=== PATIENT | female | born 1995 | race Caucasian/White ===

== ENCOUNTER 2017-01-19 05:53 | Emergency (ER) | payer BC, MEDICAID ==
[2017-01-19 06:20] VITALS: BP 109/81
--- NOTE | 2017-01-19 06:44 | EDM.PDOC ---
ED HPI GENERAL MEDICAL PROBLEM - General Chief Complaint: General Stated Complaint: SORES IN MOUTH Time Seen by Provider: 01/19/17 06:30 Source of Information: Reports: Patient History Limitations: Reports: No Limitations - History of Present Illness INITIAL COMMENTS - FREE TEXT/NARRATIVE: 21-year-old female with a sore throat, oral sores, generalized malaise and a fever for the last 48-72 hours. Her daughter has a cold sore, she is wondering if it's related. No nausea or vomiting, no cough or shortness of breath. She feels tired and has a headache. Onset: Gradual (Over the past 3 days) Severity: Moderate Associated Symptoms: Reports: Fever/Chills, Headaches, Malaise. Denies: Cough, Nausea/Vomiting, Shortness of Breath Oral/Mouth Pain Score (Numeric/FACES): 10 - Related Data Allergies Allergy/AdvReac Type Severity Reaction Status Date / Time Sulfa (Sulfonamide Allergy Intermediate Rash Verified 01/19/17 06:09 Antibiotics) lanolin alcohols Allergy Hives Verified 01/19/17 06:09 Home Meds: Home Meds Methylphenidate HCl [Methylphenidate HCl Cd] 20 mg PO BID 01/19/17 [History] Sertraline HCl [Sertraline HCl] 50 mg PO DAILY 01/19/17 [History] Past Medical History HEENT History: Reports: Impaired Vision Gastrointestinal History: Reports: GERD, Irritable Bowel Syndrome, Pancreatitis Genitourinary History: Reports: STD Other OB/BYN History: Lmp ended 1 1/2 wk ago. heavy vaginal bleeding 7/4 and 7/ 5 after intercourse. Delivered infant 10 months ago. Musculoskeletal History: Reports: Other (See Below) Other Musculoskeletal History: chronic pain in left wrist Neurological History: Reports: Migraines Psychiatric History: Reports: ADHD, Depression Dermatologic History: Reports: Eczema Other Dermatologic History: excema - Infectious Disease History Infectious Disease History: Reports: Helicobacter Pylori - Past Surgical History HEENT Surgical History: Reports: Oral Surgery Other HEENT Surgeries/Procedures: wisdom teeth out on Jan 02, 2017 GI Surgical History: Reports: Cholecystectomy Female Surgical History: Reports: Section Social & Family History - Tobacco Use Smoking Status *Q: Current Every Day Smoker Years of Tobacco use: 4 Packs/Tins Daily: 0.2 Used Tobacco, but Quit: No Month Tobacco Last Used: 10 Second Hand Smoke Exposure: No - Caffeine Use Caffeine Use: Reports: Coffee - Alcohol Use Days Per Week of Alcohol Use: 1 Number of Drinks Per Day: 7 Total Drinks Per Week: 7 - Recreational Drug Use Recreational Drug Use: No Drug Use in Last 12 Months: Yes Recreational Drug Type: Reports: Marijuana/Hashish Recreational Drug Use Frequency: Not Used In Over 3 Months ED ROS GENERAL - Review of Systems Review Of Systems: See Below Constitutional: Reports: Fever, Chills, Malaise HEENT: Reports: Ear Pain (Left ear is hurting), Throat Pain Respiratory: Denies: Shortness of Breath GI/Abdominal: Denies: Abdominal Pain, Nausea, Vomiting Skin: Denies: Bruising Neurological: Reports: Headache Psychiatric: Reports: No Symptoms ED EXAM, GENERAL - Physical Exam Exam: See Below Exam Limited By: No Limitations General Appearance: Alert, No Apparent Distress (Patient looks uncomfortable but is not distressed) Eye Exam: Bilateral Eye: Normal Inspection Ears: Normal TMs (Both tympanic membranes are completely normal) Throat/Mouth: Other (Patient does have some diffuse inflammatory changes of the gums, especially maxillary. There is also a few shallow aphthous ulcers on the mucosa. Posterior pharynx is erythematous.) Respiratory/Chest: No Respiratory Distress, Lungs Clear Neurological: Alert, Oriented Skin Exam: Warm, Dry Course - Vital Signs Last Recorded V/S: Last Vital Signs Temp 101.1 F H 01/19/17 06:19 Pulse 115 H 01/19/17 06:19 Resp 18 01/19/17 06:19 BP 109/81 01/19/17 06:19 Pulse Ox 97 01/19/17 06:19 - Orders/Labs/Meds Orders: Active Orders 24 hr Category Date Time Status CULTURE STREP A CONFIRMATION [RM] Routine Lab 01/19/17 06:27 Results STREP SCRN A RAPID W CULT CONF [RM] Routine Lab 01/19/17 06:27 Results Meds: Medications Discontinued Medications Generic Name Dose Route Start Last Admin Trade Name Freq PRN Reason Stop Dose Admin Lidocaine HCl 20 ml 01/19/17 06:56 01/19/17 07:18 Xylocaine 2% Viscous PO 01/19/17 06:57 Not Given ONETIME ONE Lidocaine HCl 15 ml 01/19/17 07:15 01/19/17 07:20 Xylocaine 2% Viscous PO 01/19/17 07:16 15 ml ONETIME ONE Administration Methylprednisolone Sodium Succinate 125 mg 01/19/17 06:56 01/19/17 07:07 Solu-Medrol IM 01/19/17 06:57 125 mg ONETIME ONE Administration - Re-Assessments/Exams Free Text/Narrative Re-Assessment/Exam: 01/19/17 06:44 A rapid strep was obtained. 01/19/17 06:52 Rapid strep was negative. This patient has a viral stomatitis. She is looking for some relief so be given 125 mg of IM Solu-Medrol, and some viscous lidocaine for symptoms. Recheck in 48 hours if not improving. She'll also be placed on Famvir 500 mg 3 times a day for 5 days Departure - Departure Time of Disposition: 07:26 Disposition: Home, Self-Care 01 Condition: Good Clinical Impression: Viral stomatitis - Discharge Information Instructions: Stomatitis, [id number] Referrals: Frederick Ventura MD [Primary Care Provider] - Forms: ED Department Discharge Care Plan Goals: Use numbing medicine before eating, and a regular dose of ibuprofen or naproxen should help. Rest and fluids and next 2-3 days and recheck if not improving satisfactorily. Return to the emergency room at any time if worsening or concerns. Antiviral medicine 3 times a day for 5 days as prescribed. - My Orders Last 24 Hours: My Active Orders 01/19/17 06:27 CULTURE STREP A CONFIRMATION [RM] Routine STREP SCRN A RAPID W CULT CONF [] Routine - Assessment/Plan Last 24 Hours: My Active Orders 01/19/17 06:27 CULTURE STREP A CONFIRMATION [RM] Routine STREP SCRN A RAPID W CULT CONF [] Routine
[2017-01-19] MEDS ORDERED: methylPREDNISolone Sodium Succinate 125 MG/2 ML SDV IM ONE (06:56)
[2017-01-19] MEDS ORDERED: Lidocaine 2% Viscous Solution 100 ML Bottle PO ONE (06:56)
[2017-01-19] MEDS ORDERED: Lidocaine 2% Viscous Solution 15 ML Cup PO ONE (07:15)
== END 2017-01-19 07:26 | disposition home or self-care (01) ==
LOC: JP.ED 05:53
DX: K12.1 Other forms of stomatitis (principal)
CPT/HCPCS: 87081; 87430; 96374; 99283; A9270; J2930

== ENCOUNTER 2017-02-26 21:32 | Emergency (ER) | payer BC, MEDICAID ==
[2017-02-26 21:51] VITALS: BP 132/87
[2017-02-26] MEDS ORDERED: Ketorolac 60 MG/2 ML SDV IM ONE (22:30)
--- NOTE | 2017-02-26 23:14 | EDM.PDOC ---
ED HPI GENERAL MEDICAL PROBLEM - General Chief Complaint: Lower Extremity Injury/Pain Stated Complaint: L FOOT INJURY Time Seen by Provider: 02/26/17 22:17 Source of Information: Reports: Patient, Family (friend) History Limitations: Reports: No Limitations - History of Present Illness INITIAL COMMENTS - FREE TEXT/NARRATIVE: left foot pain; this is a 21 year old female , presents to ER with her friend, reports at home drinking alcohol beverage, when she went down the stairs and tripped over a shoe She had immediate pain, heard a cracking sound. unable to walk on the foot without severe pain. Onset: Sudden Onset Date: 02/26/17 Onset Time: 20:30 Duration: Constant Location: Reports: Lower Extremity, Left Quality: Reports: Sharp, Throbbing Severity: Moderate Improves with: Reports: Immobilization Worsens with: Reports: Movement Context: Reports: Other (fall at home tripped over a shoe) Associated Symptoms: Reports: No Other Symptoms left foot Pain Score (Numeric/FACES): 10 - Related Data Allergies Allergy/AdvReac Type Severity Reaction Status Date / Time Sulfa (Sulfonamide Allergy Intermediate Rash Verified 02/26/17 21:53 Antibiotics) lanolin alcohols Allergy Hives Verified 02/26/17 21:53 Home Meds: Home Meds Methylphenidate HCl [Methylphenidate HCl Cd] 20 mg PO BID 01/19/17 [History] Sertraline HCl [Sertraline HCl] 50 mg PO DAILY 01/19/17 [History] Past Medical History HEENT History: Reports: Impaired Vision Gastrointestinal History: Reports: GERD, Irritable Bowel Syndrome, Pancreatitis Genitourinary History: Reports: STD Other OB/BYN History: Lmp ended 1 1/2 wk ago. heavy vaginal bleeding 7/4 and 7/ 5 after intercourse. Delivered infant 10 months ago. Musculoskeletal History: Reports: Other (See Below) Other Musculoskeletal History: chronic pain in left wrist Neurological History: Reports: Migraines Psychiatric History: Reports: ADHD, Depression Dermatologic History: Reports: Eczema Other Dermatologic History: excema - Infectious Disease History Infectious Disease History: Reports: Helicobacter Pylori - Past Surgical History HEENT Surgical History: Reports: Oral Surgery Other HEENT Surgeries/Procedures: wisdom teeth out on Jan 02, 2017 GI Surgical History: Reports: Cholecystectomy Female Surgical History: Reports: Section Social & Family History - Tobacco Use Smoking Status *Q: Current Every Day Smoker Years of Tobacco use: 5 Packs/Tins Daily: 0.5 Used Tobacco, but Quit: No Month Tobacco Last Used: 10 Second Hand Smoke Exposure: No - Caffeine Use Caffeine Use: Reports: Coffee, Energy Drinks - Alcohol Use Days Per Week of Alcohol Use: 1 Number of Drinks Per Day: 4 Total Drinks Per Week: 4 - Recreational Drug Use Recreational Drug Use: No Drug Use in Last 12 Months: Yes Recreational Drug Type: Reports: Marijuana/Hashish Recreational Drug Use Frequency: Not Used In Over 3 Months Review of Systems - Review of Systems Review Of Systems: See Below Constitutional: Reports: No Symptoms Eyes: Reports: No Symptoms Ears: Reports: No Symptoms Nose: Reports: No Symptoms Mouth/Throat: Reports: No Symptoms Respiratory: Reports: No Symptoms Cardiovascular: Reports: No Symptoms Genitourinary: Reports: No Symptoms Musculoskeletal: Reports: Foot Pain, Joint Pain (left foot and ankle pain) Skin: Reports: Bruising Neurological: Reports: No Symptoms Psychiatric: Reports: No Symptoms ED EXAM, GENERAL - Physical Exam Exam: See Below Exam Limited By: Intoxication General Appearance: Alert, WD/WN, Mild Distress Nose: Normal Inspection Throat/Mouth: Perioral Cyanosis Head: Atraumatic Neck: Supple Respiratory/Chest: No Respiratory Distress Peripheral Pulses: 2+: Posterior Tibial (L), Posterior Tibial (R), Dorsalis Pedis (L), Dorsalis Pedis (R) Extremities: Joint Swelling (left lateral malleous, and left lateral foot) Neurological: Alert, Oriented, Normal Cognition Psychiatric: Tearful Skin Exam: Warm, Dry, Intact Lymphatic: No Adenopathy Course - Vital Signs Last Recorded V/S: Last Vital Signs Temp 36.6 C 02/26/17 21:59 Pulse 124 H 02/26/17 21:59 Resp 16 02/26/17 21:59 BP 132/87 02/26/17 21:59 Pulse Ox 98 02/26/17 21:59 - Orders/Labs/Meds Orders: Active Orders 24 hr Category Date Time Status Ankle Min 3V Lt [CR] Stat Exams 02/26/17 22:29 Taken Foot Comp Min 3V Lt [CR] Stat Exams 02/26/17 22:29 Taken DME for Discharge [COMM] Urgent Oth 02/26/17 23:03 Ordered Meds: Medications Discontinued Medications Generic Name Dose Route Start Last Admin Trade Name Freq PRN Reason Stop Dose Admin Ketorolac Tromethamine 60 mg 02/26/17 22:30 02/26/17 22:44 Toradol IM 02/26/17 22:31 60 mg ONETIME ONE Administration - Radiology Interpretation Free Text/Narrative:: xrays of left foot and ankle; wet read, closed fracture of left 5th proximal metatarsal Departure - Departure Time of Disposition: 23:23 Disposition: Home, Self-Care 01 Condition: Good Clinical Impression: Closed fracture of foot - Discharge Information Instructions: Metatarsal Fracture Referrals: Frederick Ventura MD [Primary Care Provider] - Forms: ED Department Discharge Care Plan Goals: left 5th proximal head fracture of metatarsal -non wt bearing -crutches -referral to Orthopedics for further care and treatment apply ice intermittently for the next 2 days wear splint no work til evaluation by Orthopedic pain control -Percocet 5-325mg take one every 4 to 6 hours as needed for pain; do not mix with alcohol -Motrin 600mg , take one every 6 yo 8 hours as needed -Tylenol 325mg; take two tablets every 4 to 6 hours for pain return to clinic, urgent care or er if not improved or symptoms worsen - Problem List & Annotations (1) Fracture of metatarsal bone of left foot SNOMED Code(s): 615648362 Code(s): S92.302A - FRACTURE OF UNSP METATARSAL BONE(S), LEFT FOOT, INIT Status: Acute Current Visit: Yes Qualifiers: Encounter type: initial encounter Metatarsal bone: fifth Fracture type: closed Fracture alignment: nondisplaced Qualified Code(s): S92.355A - Nondisplaced fracture of fifth metatarsal bone, left foot, initial encounter for closed fracture (2) Closed fracture of foot SNOMED Code(s): 944255481 Code(s): S92.909A - UNSP FRACTURE OF UNSP FOOT, INIT ENCNTR FOR CLOSED FRACTURE Status: Acute Priority: High Current Visit: Yes - Problem List Review Problem List Initiated/Reviewed/Updated: Yes - My Orders Last 24 Hours: My Active Orders 02/26/17 22:29 Ankle Min 3V Lt [CR] Stat Foot Comp Min 3V Lt [CR] Stat 02/26/17 23:03 DME for Discharge [COMM] Urgent - Assessment/Plan Last 24 Hours: My Active Orders 02/26/17 22:29 Ankle Min 3V Lt [CR] Stat Foot Comp Min 3V Lt [CR] Stat 02/26/17 23:03 DME for Discharge [COMM] Urgent Plan: left 5th proximal head fracture of metatarsal -non wt bearing -crutches -referral to Orthopedics for further care and treatment apply ice intermittently for the next 2 days wear splint no work til evaluation by Orthopedic pain control -Percocet 5-325mg take one every 4 to 6 hours as needed for pain; do not mix with alcohol -Motrin 600mg , take one every 6 yo 8 hours as needed -Tylenol 325mg; take two tablets every 4 to 6 hours for pain return to clinic, urgent care or er if not improved or symptoms worsen
--- NOTE | 2017-02-27 11:03 | CR ---
Foot Comp Min 3V Lt HISTORY: Fall COMPARISON: None FINDINGS: Transverse fracture through the base of the fifth metatarsal with no significant displaceme nt. No other fractures seen.
--- NOTE | 2017-02-27 11:03 | CR ---
Ankle Min 3V Lt HISTORY: Fall COMPARISON: None FINDINGS: Transverse fracture to the base of the fifth metatarsal. No significant displacement. No ot her fractures seen.
== END 2017-02-26 23:24 | disposition home or self-care (01) ==
LOC: JP.ED 21:32
DX: S92.352A Displaced fracture of fifth metatarsal bone, left foot, initial encounter for closed fracture (principal); F17.210 Nicotine dependence, cigarettes, uncomplicated; K21.9 Gastro-esophageal reflux disease without esophagitis; F32.9 Major depressive disorder, single episode, unspecified; Z79.899 Other long term (current) drug therapy; Z88.2 Allergy status to sulfonamides; Z88.8 Allergy status to other drugs, medicaments and biological substances; W10.8XXA Fall (on) (from) other stairs and steps, initial encounter; Y92.009 Unspecified place in unspecified non-institutional (private) residence as the place of occurrence of the external cause
CPT/HCPCS: 73610; 73630; 96372; 99284; J1885

== ENCOUNTER 2017-09-02 08:10 | Emergency (ER) | payer BC, MEDICAID ==
--- NOTE | 2017-09-02 08:43 | EDM.PDOC ---
ED HPI GENERAL MEDICAL PROBLEM - General Chief Complaint: Lower Extremity Injury/Pain Stated Complaint: HAD FOOT SURGERY/IN PAIN Time Seen by Provider: 09/02/17 08:30 Source of Information: Reports: Patient, RN History Limitations: Reports: No Limitations - History of Present Illness INITIAL COMMENTS - FREE TEXT/NARRATIVE: 22 yo female had surgery yesterday by a local die repairer trimmer dies. Presents now due to pain, feels the cast is too tight in her heel area. She did not try to reach the die repairer trimmer dies, but rather just came to the ER. Onset: Today Onset Date: 09/02/17 Duration: Hour(s):, Constant Location: Reports: Lower Extremity, Left Quality: Reports: Pressure Severity: Moderate Improves with: Reports: None Worsens with: Reports: None Associated Symptoms: Reports: No Other Symptoms Treatments DECORATOR CONSULTANT: Reports: Other (see below) (prescribed pain medication) Left Feet Pain Score (Numeric/FACES): 9 - Related Data Allergies Allergy/AdvReac Type Severity Reaction Status Date / Time Sulfa (Sulfonamide Allergy Intermediate Rash Verified 09/02/17 08:26 Antibiotics) lanolin alcohols Allergy Hives Verified 09/02/17 08:26 Home Meds: Home Meds Methylphenidate HCl [Methylphenidate HCl Cd] 20 mg PO BID 01/19/17 [History] Sertraline HCl 50 mg PO DAILY 01/19/17 [History] medroxyPROGESTERone [Depo-Provera] 150 mg .XX DAILY 08/28/17 [History] Acetaminophen/HYDROcodone [[place] 325-5 MG] 1 - 2 tab PO Q6H PRN 09/02/17 [ History] Past Medical History HEENT History: Reports: Impaired Vision Cardiovascular History: Reports: None Respiratory History: Reports: None Gastrointestinal History: Reports: GERD, Irritable Bowel Syndrome, Pancreatitis Genitourinary History: Reports: STD Other [employer] History: Lmp ended 1 1/2 wk ago. heavy vaginal bleeding 08/20 and 08/21 after intercourse. Delivered 10 months ago. Musculoskeletal History: Reports: Fracture, Other (See Below) Other Musculoskeletal History: chronic pain in left wrist. left foot FX Neurological History: Reports: Migraines Psychiatric History: Reports: ADHD, Depression Endocrine/Metabolic History: Reports: None Hematologic History: Reports: None Immunologic History: Reports: None Oncologic (Cancer) History: Reports: None Dermatologic History: Reports: Eczema Other Dermatologic History: excema - Infectious Disease History Infectious Disease History: Reports: None - Past Surgical History Head Surgeries/Procedures: Reports: None HEENT Surgical History: Reports: Oral Surgery Other HEENT Surgeries/Procedures: wisdom teeth out on Jan 02, 2017 Cardiovascular Surgical History: Reports: None GI Surgical History: Reports: Cholecystectomy Female Surgical History: Reports: Section Neurological Surgical History: Reports: None Social & Family History - Family History Family Medical History: Noncontributory - Tobacco Use Smoking Status *Q: Current Every Day Smoker Years of Tobacco use: 4 Packs/Tins Daily: 0.3 - Caffeine Use Caffeine Use: Reports: Coffee, Energy Drinks, Soda, Tea - Recreational Drug Use Recreational Drug Use: No Review of Systems - Review of Systems Review Of Systems: See Below Constitutional: Reports: No Symptoms Musculoskeletal: Reports: Foot Pain (Left) Skin: Reports: No Symptoms Neurological: Reports: No Symptoms ED EXAM, GENERAL - Physical Exam Exam: See Below Exam Limited By: Other (Cast covering much of the left foot/ankle/lower leg.) General Appearance: Alert, WD/WN, No Apparent Distress Extremities: Normal Inspection, Other (short leg cast in place, cap refill to the toes appears intact. No obvious swelling of toes. ) Neurological: Alert, Oriented, CN II-XII Intact, Normal Cognition, No Motor/ Sensory Deficits Psychiatric: Normal Affect, Normal Mood Skin Exam: Warm, Dry, Intact, Normal Color, No Rash Course - Vital Signs Text/Narrative:: Discussed case with Dr. Teague's coverage(he is on vacation). ATUL wraps loosened and some additional padding placed around splint with reported relief by patient. Last Recorded V/S: Last Vital Signs Temp 36.8 C 09/02/17 08:24 Pulse 66 09/02/17 09:18 Resp 16 09/02/17 09:18 BP 103/66 09/02/17 09:18 Pulse Ox 98 09/02/17 09:18 - Orders/Labs/Meds Meds: Medications Discontinued Medications Generic Name Dose Route Start Last Admin Trade Name Freq PRN Reason Stop Dose Admin Hydromorphone HCl 1 mg 09/02/17 08:46 09/02/17 08:53 Dilaudid IM 09/02/17 08:47 1 mg ONETIME ONE Administration Departure - Departure Time of Disposition: 09:50 Disposition: Home, Self-Care 01 Condition: Good Clinical Impression: Ankle pain, left Qualifiers: Chronicity: unspecified Qualified Code(s): M25.572 - Pain in left ankle and joints of left foot - Discharge Information Referrals: Frederick Ventura MD [Primary Care Provider] - Forms: ED Department Discharge
[2017-09-02] MEDS ORDERED: HYDROmorphone 1 MG/ML Syringe IM ONE (08:46)
[2017-09-02 09:36] VITALS: BP 103/66
== END 2017-09-02 10:00 | disposition home or self-care (01) ==
LOC: JP.ED 08:10
DX: M25.572 Pain in left ankle and joints of left foot (principal); K21.9 Gastro-esophageal reflux disease without esophagitis; F17.210 Nicotine dependence, cigarettes, uncomplicated; F32.9 Major depressive disorder, single episode, unspecified; Z98.890 Other specified postprocedural states; Z79.899 Other long term (current) drug therapy; Z88.2 Allergy status to sulfonamides; Z88.8 Allergy status to other drugs, medicaments and biological substances
CPT/HCPCS: 96372; 99283; J1170

== ENCOUNTER 2019-12-09 18:18 | Inpatient (IN) | payer BC, MEDICAID, OTHER ==
[2019-12-09] MEDS ORDERED: HYDROmorphone 1 MG/ML Syringe IVPUSH ONE ×2 (19:08→20:09)
[2019-12-09] MEDS ORDERED: Ondansetron 4 MG/2 ML SDV IVPUSH ONE (19:09)
[2019-12-09] MEDS ORDERED: Lactated Ringers 1,000 ML IV SCH (19:15)
--- NOTE | 2019-12-09 19:15 | EDM.PDOC ---
ED HPI GENERAL MEDICAL PROBLEM - General Chief Complaint: Abdominal Pain Stated Complaint: MEDICAL Time Seen by Provider: 12/09/19 19:05 Source of Information: Reports: Patient, Old Records, RN History Limitations: Reports: No Limitations - History of Present Illness INITIAL COMMENTS - FREE TEXT/NARRATIVE: 24 yo female presents with upper abdominal pain. She has this on and off for years. Today's episode is more severe than usual. Says she has been to the clinic for it and was told it was her anxiety. Had pancreatitis at age 13 due a problem with her gallbladder that resulted in her getting a cholecystectomy, this pain feels like that. She has not had nausea, vomiting, diarrhea or fever. She has not noted a pattern as to what brings on her pain, she did have several alcoholic drinks today. Onset: Today, Sudden Onset Date: 12/09/19 Duration: Hour(s):, Constant Location: Reports: Abdomen (upper) Quality: Reports: Ache Severity: Severe Improves with: Reports: Other (leaning forward as far as she can. 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) - Related Data Allergies Allergy/AdvReac Type Severity Reaction Status Date / Time Sulfa (Sulfonamide Allergy Intermediate Rash Verified 09/02/17 08:26 Antibiotics) lanolin alcohols Allergy Hives Verified 09/02/17 08:26 Home Meds: Home Meds Methylphenidate HCl [Methylphenidate HCl Cd] 20 mg PO BID 01/19/17 [History] Sertraline HCl 50 mg PO DAILY 01/19/17 [History] medroxyPROGESTERone [Depo-Provera] 150 mg .XX DAILY 08/28/17 [History] Past Medical History HEENT History: Reports: Impaired Vision Cardiovascular History: Reports: None Respiratory History: Reports: None Gastrointestinal History: Reports: GERD, Irritable Bowel Syndrome, Pancreatitis Genitourinary History: Reports: STD 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 left foot FX Neurological History: Reports: Migraines Psychiatric History: Reports: ADHD, Anxiety, Depression Endocrine/Metabolic History: Reports: None Hematologic History: Reports: None Immunologic History: Reports: None Oncologic (Cancer) History: Reports: None Dermatologic History: Reports: Eczema Other Dermatologic History: excema - Infectious Disease History Infectious Disease History: Reports: None - Past Surgical History Head Surgeries/Procedures: Reports: None HEENT Surgical History: Reports: Oral Surgery Other HEENT Surgeries/Procedures: wisdom teeth out on Jan 02, 2017 Cardiovascular Surgical History: Reports: None GI Surgical History: Reports: Cholecystectomy, Colonoscopy Female Surgical History: Reports: Section Neurological Surgical History: Reports: None Social & Family History - Family History Family Medical History: Noncontributory - Tobacco Use Tobacco Use Status *Q: Current Every Day Tobacco User Years of Tobacco use: 10 Packs/Tins Daily: 0.5 - Caffeine Use Caffeine Use: Reports: Coffee, Energy Drinks - Alcohol Use Days Per Week of Alcohol Use: 3 Number of Drinks Per Day: 5 Total Drinks Per Week: 15 Date of Last Drink: 12/09/19 Time of Last Drink: 18:00 - Recreational Drug Use Recreational Drug Use: No ED ROS GENERAL - Review of Systems Review Of Systems: See Below Constitutional: Reports: No Symptoms HEENT: Reports: No Symptoms Respiratory: Reports: No Symptoms Cardiovascular: Reports: No Symptoms Endocrine: Reports: No Symptoms GI/Abdominal: Reports: Abdominal Pain, Nausea (very slight now). Denies: Black Stool, Bloody Stool, Constipation, Diarrhea, Distension, Hematemesis, Hematochezia, Melena, Vomiting : Reports: No Symptoms Musculoskeletal: Reports: No Symptoms Skin: Reports: No Symptoms Neurological: Reports: No Symptoms ED EXAM, GI/ABD - Physical Exam Exam: See Below Exam Limited By: No Limitations General Appearance: Alert, WD/WN, Mild Distress Eyes: Bilateral: Normal Appearance Ears: Normal External Exam, Normal Canal, Hearing Grossly Normal Nose: Normal Inspection, No Blood Throat/Mouth: Normal Inspection, Normal Lips, Normal Oropharynx, Normal Voice, No Airway Compromise Head: Atraumatic, Normocephalic Neck: Normal Inspection Respiratory/Chest: No Respiratory Distress, Lungs Clear, Normal Breath Sounds, No Accessory Muscle Use Cardiovascular: Regular Rate, Rhythm, No Edema GI/Abdominal Exam: Soft, No Distention, Tender (mostly in the epigastrium), Abnormal Bowel Sounds (decreased). No: Non-Tender, Distended, Guarding, Rigid, Rebound Back Exam: Normal Inspection. No: CVA Tenderness (R), CVA Tenderness (L) Extremities: Normal Inspection, Normal Range of Motion, Non-Tender, No Pedal Edema. No: Pedal Edema Neurological: Alert, Oriented, CN II-XII Intact, Normal Cognition, No Motor/Sensory Deficits Psychiatric: Normal Affect, Normal Mood Skin Exam: Warm, Dry, Intact, Normal Color, No Rash Course - Vital Signs Text/Narrative:: Dr. Sosa called @ Last Recorded V/S: Last Vital Signs Temp 35.7 C L 12/09/19 18:31 Pulse 119 H 12/09/19 18:31 Resp 18 12/09/19 18:31 BP 142/90 H 12/09/19 18:31 Pulse Ox 98 12/09/19 18:31 - Orders/Labs/Meds Orders: Active Orders 24 hr Category Date Time Status Iopamidol [Isovue-300 (61%)] Med 12/09/19 20:15 Active 100 ml IV . DIRECTED Lactated Ringers [Ringers, Lactated] 1,000 ml Med 12/09/19 19:15 Active IV ASDIRECTED Sodium Chloride 0.9% [Normal Saline] 80 ml Med 12/09/19 20:15 Active IV ASDIRECTED Sodium Chloride 0.9% [Saline Flush] Med 12/09/19 20:14 Active 10 ml FLUSH ASDIRECTED PRN Medication Orders Lactated Ringer's (Ringers, Lactated) 1,000 mls @ 500 mls/hr IV ASDIRECTED [facility] Last Admin: 12/09/19 19:27 Dose: 500 mls/hr Documented by: MICHAEL Sodium Chloride (Normal Saline) 80 mls @ 3 mls/sec IV ASDIRECTED [facility] Last Admin: 12/09/19 20:26 Dose: 3 mls/sec Documented by: LINDSEY Iopamidol (Isovue-300 (61%)) 100 ml IV . DIRECTED [facility] Last Admin: 12/09/19 20:26 Dose: 100 ml Documented by: LINDSEY Sodium Chloride (Saline Flush) 10 ml FLUSH ASDIRECTED PRN PRN Reason: Keep Vein Open Last Admin: 12/09/19 20:26 Dose: 10 ml Documented by: LINDSEY Labs: Laboratory Tests 1012/09/19 12/09/19 Range/Units 19:23 19:23 20:15 WBC 8.8 (4.5-11.0) K/uL RBC 4.66 (3.30-5.50) M/uL Hgb 14.9 (12.0-15.0) g/dL Hct 43.6 (36.0-48.0) % MCV 94 (80-98) fL MCH 32 H (27-31) pg MCHC 34 (32-36) % Plt Count 397 (150-400) K/uL Sodium 136 L (140-148) mmol/L Potassium 3.7 (3.6-5.2) mmol/L Chloride 100 (100-108) mmol/L Carbon Dioxide 23 (21-32) mmol/L Anion Gap 16.7 H (5.0-14.0) mmol/L BUN 7 (7-18) mg/dL Creatinine 0.8 (0.6-1.0) mg/dL Est Cr Clr Drug Dosing 96.73 mL/min Estimated GFR (MDRD) > 60 (>60) Glucose 88 (74-106) mg/dL Calcium 8.8 (8.5-10.1) mg/dL Total Bilirubin 0.3 (0.2-1.0) mg/dL AST 153 H D (15-37) U/L ALT 90 H (12-78) U/L Alkaline Phosphatase 80 (46-116) U/L Total Protein 7.6 (6.4-8.2) g/dL Albumin 4.2 (3.4-5.0) g/dL Globulin 3.4 (2.3-3.5) g/dL Albumin/Globulin Ratio 1.2 (1.2-2.2) Lipase 890 H (73-393) U/L Urine Color Yellow (YELLOW) Urine Appearance Clear (CLEAR) Urine pH 6.5 (5.0-8.0) Ur Specific Peck 1.010 (1.008-1.030) Urine Protein Negative (NEGATIVE) mg/dL Urine Glucose (UA) Negative (NEGATIVE) mg/dL Urine Ketones Negative (NEGATIVE) mg/dL Urine Occult Blood Negative (NEGATIVE) Urine Nitrite Negative (NEGATIVE) Urine Bilirubin Negative (NEGATIVE) Urine Urobilinogen 0.2 (0.2-1.0) EU/dL Ur Leukocyte Esterase Negative (NEGATIVE) Urine RBC Not seen (0-5) Urine WBC Not seen (0-5) Ur Epithelial Cells Not seen Urine Bacteria Not seen Urine HCG, Qual 12/09/19 Range/Units 20:15 WBC (4.5-11.0) K/uL RBC (3.30-5.50) M/uL Hgb (12.0-15.0) g/dL Hct (36.0-48.0) % MCV (80-98) fL MCH (27-31) pg MCHC (32-36) % Plt Count (150-400) K/uL Sodium (140-148) mmol/L Potassium (3.6-5.2) mmol/L Chloride (100-108) mmol/L Carbon Dioxide (21-32) mmol/L Anion Gap (5.0-14.0) mmol/L BUN (7-18) mg/dL Creatinine (0.6-1.0) mg/dL Est Cr Clr Drug Dosing mL/min Estimated GFR (MDRD) (>60) Glucose (74-106) mg/dL Calcium (8.5-10.1) mg/dL Total Bilirubin (0.2-1.0) mg/dL AST (15-37) U/L ALT (12-78) U/L Alkaline Phosphatase (46-116) U/L Total Protein (6.4-8.2) g/dL Albumin (3.4-5.0) g/dL Globulin (2.3-3.5) g/dL Albumin/Globulin Ratio (1.2-2.2) Lipase (73-393) U/L Urine Color (YELLOW) Urine Appearance (CLEAR) Urine pH (5.0-8.0) Ur Specific Peck (1.008-1.030) Urine Protein (NEGATIVE) mg/dL Urine Glucose (UA) (NEGATIVE) mg/dL Urine Ketones (NEGATIVE) mg/dL Urine Occult Blood (NEGATIVE) Urine Nitrite (NEGATIVE) Urine Bilirubin (NEGATIVE) Urine Urobilinogen (0.2-1.0) EU/dL Ur Leukocyte Esterase (NEGATIVE) Urine RBC (0-5) Urine WBC (0-5) Ur Epithelial Cells Urine Bacteria Urine HCG, Qual Negative Meds: Medications Generic Name Dose Route Start Last Admin Trade Name Freq PRN Reason Stop Dose Admin Lactated Ringer's 1,000 mls @ 500 mls/hr 12/09/19 19:15 12/09/19 19:27 Ringers, Lactated IV 500 mls/hr ASDIRECTED [facility] Administration Sodium Chloride 80 mls @ 3 mls/sec 12/09/19 20:15 12/09/19 20:26 Normal Saline IV 3 mls/sec ASDIRECTED [facility] Administration Iopamidol 100 ml 12/09/19 20:15 12/09/19 20:26 Isovue-300 (61%) IV 100 ml . DIRECTED [facility] Administration Sodium Chloride 10 ml 12/09/19 20:14 12/09/19 20:26 Saline Flush FLUSH 10 ml ASDIRECTED PRN Administration Keep Vein Open Discontinued Medications Generic Name Dose Route Start Last Admin Trade Name Freq PRN Reason Stop Dose Admin Hydromorphone HCl 1 mg 12/09/19 19:08 12/09/19 19:28 Dilaudid IVPUSH 12/09/19 19:09 1 mg ONETIME ONE Administration Hydromorphone HCl 1 mg 12/09/19 20:09 12/09/19 20:15 Dilaudid IVPUSH 12/09/19 20:10 1 mg ONETIME ONE Administration Ondansetron HCl 4 mg 12/09/19 19:09 12/09/19 19:27 Zofran IVPUSH 12/09/19 19:10 4 mg ONETIME ONE Administration - Radiology Interpretation Free Text/Narrative:: CT abd/pelvis with IV contrast-neg CT Results Date: 12/09/19 CT Results Time: 20:58 Departure - Departure Time of Disposition: 21:15 Disposition: Admitted As Inpatient 65 Condition: Fair Clinical Impression: Elevated LFTs Acute pancreatitis Qualifiers: Pancreatitis type: unspecified pancreatitis type Acute pancreatitis complication: no infection or necrosis Qualified Code(s): K85.90 - Acute pancreatitis without necrosis or infection, unspecified - Discharge Information *PRESCRIPTION DRUG MONITORING PROGRAM REVIEWED*: No *COPY OF PRESCRIPTION DRUG MONITORING REPORT IN PATIENT MITCHELL: No Referrals: PCP,None [Primary Care Provider] - Forms: ED Department Discharge Sepsis Event Note (ED) - Evaluation Sepsis Screening Result: No Definite Risk - Focused Exam Vital Signs: Vital Signs Temp Pulse Resp BP Pulse Ox 12/09/19 18:31 35.7 C L 119 H 18 142/90 H 98 - My Orders Last 24 Hours: My Active Orders 12/09/19 19:15 Lactated Ringers [Ringers, Lactated] 1,000 ml IV ASDIRECTED 12/09/19 20:14 Sodium Chloride 0.9% [Saline Flush] 10 ml FLUSH ASDIRECTED PRN 12/09/19 20:15 Iopamidol [Isovue-300 (61%)] 100 ml IV . DIRECTED Sodium Chloride 0.9% [Normal Saline] 80 ml IV ASDIRECTED - Assessment/Plan Last 24 Hours: My Active Orders 12/09/19 19:15 Lactated Ringers [Ringers, Lactated] 1,000 ml IV ASDIRECTED 12/09/19 20:14 Sodium Chloride 0.9% [Saline Flush] 10 ml FLUSH ASDIRECTED PRN 12/09/19 20:15 Iopamidol [Isovue-300 (61%)] 100 ml IV . DIRECTED Sodium Chloride 0.9% [Normal Saline] 80 ml IV ASDIRECTED
[2019-12-09] MEDS ORDERED: Sodium Chloride 0.9% 10 ML Syringe FLUSH PRN (20:14)
[2019-12-09] MEDS ORDERED: Iopamidol 612 MG/ML 100 ML Bottle IV SCH (20:15)
[2019-12-09] MEDS ORDERED: Sodium Chloride 0.9% 80 ML IV SCH (20:15)
--- NOTE | 2019-12-09 20:55 | CRLCT ---
INDICATION: Epigastric pain, elevated lipase TECHNIQUE: CT Abdomen and pelvis with i.v. contrast. Coronal and sagittal reformats were obtained. CONTRAST: 100 mL Isovue 300 COMPARISON: None FINDINGS: Lower chest: Unremarkable. Liver: Unremarkable. Spleen: Unremarkable. Pancreas: Unremarkable. Gallbladder: Previous cholecystectomy noted with mild intra and extrahepatic biliary ductal dilatation seen. Kidney: Unremarkable. No kidney or ureteral stones or obstruction seen. Adrenal: Unremarkable. Bowel: Unremarkable. The appendix is normal in appearance and size. Vascular: Unremarkable. Lymph: Unremarkable. Peritoneum: Unremarkable. No pneumoperitoneum is seen. No significant ascites is noted. Pelvis: Unremarkable. Soft tissue: Unremarkable. Bone: Unremarkable for age. IMPRESSION: 1. Unremarkable with no CT correlate for the patient`s symptoms seen. Pancreas is unremarkable appearance by CT. Dictated by Harvinder Rodriguez MD @ 12/09/2019 8:54:27 PM Please note that all CT scans at this facility use dose modulation, iterative reconstruction, and/or weight-based dosing when appropriate to reduce radiation dose to as low as reasonably achievable. Dictated by: Harvinder Rodriguez MD @ 12/09/2019 20:54:30 (Electronically Signed)
[2019-12-09] MEDS: Sodium Chloride 0.9% 1,000 ML IV SCH (22:46)
[2019-12-09] MEDS: HYDROmorphone 1 MG/ML Syringe IVPUSH PRN (22:47)
--- NOTE | 2019-12-10 | HP ---
CHIEF COMPLAINT: Abdominal pain. HISTORY OF PRESENT ILLNESS: A 24-year-old who has had a history of pancreatitis when she was 13. She was drinking at that time, but it turned out to also be involving her gallbladder that was taken out about a year later. She had sudden onset of upper abdominal pain with radiation to her back with some slight nausea without vomiting, started about 3 hours prior to coming in, and then it did get severe and was brought in for further evaluation, was evaluated by the emergency room physician. CT scan was unremarkable, but was noted to have elevated pancreatic enzymes, liver enzymes, mostly secondary to pancreatitis, and I was asked to admit the patient for further evaluation and treatment. The patient otherwise denies any other complaints at this time. PAST MEDICAL HISTORY: 1. History of pancreatitis with admission. She has been having some mild pain recently, but today it was worse. 2. Cholecystectomy. 3. . 4. Foot surgery. CURRENT MEDICATIONS: Methylphenidate 20 mg b.i.d., sertraline 50 mg daily, Depo-Provera. ALLERGIES: SULFA, LANOLIN. SOCIAL HISTORY: Does smoke and does drink, she states about 2 to 3 times a week, had 3 today. FAMILY HISTORY: Noncontributory. REVIEW OF SYSTEMS: Denies fevers, chills, upper respiratory symptoms. No chest pain, shortness of breath, cough. Does have slight nausea that was improved with Zofran in the emergency room. No vomiting. No diarrhea or constipation, bloody or black stools. No urinary problems reported. No swelling of legs. No skin problems reported. No neurologic complaints reported. OBJECTIVE: VITAL SIGNS: Temp 35.7, pulse 119, blood pressure 142/90, respirations 18, O2 saturation 98% on room air. GENERAL: The patient is starting to have more pain. Otherwise, no apparent distress. HEENT: Pharynx is clear. NECK: Supple. No adenopathy, thyromegaly. LUNGS: Clear. HEART: Regular without murmurs. ABDOMEN: Soft. Did have discomfort in the upper abdomen. There is no mass or organomegaly palpated, but did guard a little bit. She did have some radiating pain into her back, but I am able to reproduce pain there. EXTREMITIES: No edema. SKIN: Negative. NEUROLOGIC: Alert and oriented. IMAGING: CT scan was unremarkable with no abnormality seen in her pancreas or liver. LABORATORY DATA: White count 8.8, hemoglobin 14.9, platelets 397,000. Sodium 136, potassium 3.7, BUN was 7, creatinine 0.8, glucose 88. Liver functions; AST was elevated at 153, ALT 90, lipase was 890. Urinalysis was unremarkable. ASSESSMENT: Acute pancreatitis. We will admit her inpatient. Anticipate more than 2 midnight stay. Keep her n.p.o. for now, re-evaluate based on her symptoms and labs. Transfer care to the hospitalist service in the morning. Other medical problems and surgeries as listed above. Emmanuel Sosa MD /[phone]
[2019-12-10] MEDS: HYDROmorphone 1 MG/ML Syringe IVPUSH PRN ×13 (00:10→22:34)
[2019-12-10] MEDS: Ondansetron 4 MG/2 ML SDV IV PRN ×2 (04:31→17:25)
[2019-12-10] MEDS: Sodium Chloride 0.9% 1,000 ML IV SCH ×3 (05:56→22:35)
[2019-12-10] MEDS ORDERED: LORazepam 2 MG/ML SDV IVPUSH ONE (08:37)
[2019-12-10] MEDS: Sertraline 50 MG Tab PO SCH (08:41)
--- NOTE | 2019-12-10 09:33 | PCM.PN ---
- General Info Date of Service: 12/10/19 Subjective Update: No acute events overnight following admission. AST, ALT and lipase are all higher today than they were last night. Her abdominal pain is somewhat better this morning but not resolved. She is still quite uncomfortable. No fevers. No diarrhea. Functional Status: Reports: Pain Controlled - Patient Data Vitals - Most Recent: Last Vital Signs Temp 36.8 C 12/10/19 07:20 Pulse 64 12/10/19 07:20 Resp 16 12/10/19 07:20 BP 94/62 12/10/19 07:20 Pulse Ox 94 L 12/10/19 07:20 Weight - Most Recent: 65.68 kg I&O - Last 24 Hours: Intake & Output 12/09/19 12/10/19 12/10/19 22:59 06:59 14:59 Intake Total 891 60 Balance 891 60 Lab Results Last 24 Hours: Laboratory Results - last 24 hr 12/09/19 12/09/19 12/09/19 Range/Units 19:23 19:23 20:15 WBC 8.8 (4.5-11.0) K/uL RBC 4.66 (3.30-5.50) M/uL Hgb 14.9 (12.0-15.0) g/dL Hct 43.6 (36.0-48.0) % MCV 94 (80-98) fL MCH 32 H (27-31) pg MCHC 34 (32-36) % Plt Count 397 (150-400) K/uL Sodium 136 L (140-148) mmol/L Potassium 3.7 (3.6-5.2) mmol/L Chloride 100 (100-108) mmol/L Carbon Dioxide 23 (21-32) mmol/L Anion Gap 16.7 H (5.0-14.0) mmol/L BUN 7 (7-18) mg/dL Creatinine 0.8 (0.6-1.0) mg/dL Est Cr Clr Drug Dosing 96.73 mL/min Estimated GFR (MDRD) > 60 (>60) Glucose 88 (74-106) mg/dL Calcium 8.8 (8.5-10.1) mg/dL Total Bilirubin 0.3 (0.2-1.0) mg/dL AST 153 H D (15-37) U/L ALT 90 H (12-78) U/L Alkaline Phosphatase 80 (46-116) U/L Total Protein 7.6 (6.4-8.2) g/dL Albumin 4.2 (3.4-5.0) g/dL Globulin 3.4 (2.3-3.5) g/dL Albumin/Globulin Ratio 1.2 (1.2-2.2) Amylase (25-115) U/L Lipase 890 H (73-393) U/L Urine Color Yellow (YELLOW) Urine Appearance Clear (CLEAR) Urine pH 6.5 (5.0-8.0) Ur Specific [place] 1.010 (1.008-1.030) Urine Protein Negative (NEGATIVE) mg/dL Urine Glucose (UA) Negative (NEGATIVE) mg/dL Urine Ketones Negative (NEGATIVE) mg/dL Urine Occult Blood Negative (NEGATIVE) Urine Nitrite Negative (NEGATIVE) Urine Bilirubin Negative (NEGATIVE) Urine Urobilinogen 0.2 (0.2-1.0) EU/dL Ur Leukocyte Esterase Negative (NEGATIVE) Urine RBC Not seen (0-5) Urine WBC Not seen (0-5) Ur Epithelial Cells Not seen Urine Bacteria Not seen Urine HCG, Qual 12/09/19 12/10/19 12/10/19 Range/Units 20:15 04:36 04:36 WBC 7.0 (4.5-11.0) K/uL RBC 3.88 (3.30-5.50) M/uL Hgb 12.4 D (12.0-15.0) g/dL Hct 37.3 (36.0-48.0) % MCV 96 (80-98) fL MCH 32 H (27-31) pg MCHC 33 (32-36) % Plt Count 315 (150-400) K/uL Sodium (140-148) mmol/L Potassium (3.6-5.2) mmol/L Chloride (100-108) mmol/L Carbon Dioxide (21-32) mmol/L Anion Gap (5.0-14.0) mmol/L BUN (7-18) mg/dL Creatinine (0.6-1.0) mg/dL Est Cr Clr Drug Dosing mL/min Estimated GFR (MDRD) (>60) Glucose (74-106) mg/dL Calcium (8.5-10.1) mg/dL Total Bilirubin (0.2-1.0) mg/dL AST (15-37) U/L ALT (12-78) U/L Alkaline Phosphatase (46-116) U/L Total Protein (6.4-8.2) g/dL Albumin (3.4-5.0) g/dL Globulin (2.3-3.5) g/dL Albumin/Globulin Ratio (1.2-2.2) Amylase 247 H (25-115) U/L Lipase 1657 H (73-393) U/L Urine Color (YELLOW) Urine Appearance (CLEAR) Urine pH (5.0-8.0) Ur Specific [place] (1.008-1.030) Urine Protein (NEGATIVE) mg/dL Urine Glucose (UA) (NEGATIVE) mg/dL Urine Ketones (NEGATIVE) mg/dL Urine Occult Blood (NEGATIVE) Urine Nitrite (NEGATIVE) Urine Bilirubin (NEGATIVE) Urine Urobilinogen (0.2-1.0) EU/dL Ur Leukocyte Esterase (NEGATIVE) Urine RBC (0-5) Urine WBC (0-5) Ur Epithelial Cells Urine Bacteria Urine HCG, Qual Negative 12/10/19 Range/Units 04:36 WBC (4.5-11.0) K/uL RBC (3.30-5.50) M/uL Hgb (12.0-15.0) g/dL Hct (36.0-48.0) % MCV (80-98) fL MCH (27-31) pg MCHC (32-36) % Plt Count (150-400) K/uL Sodium 141 (140-148) mmol/L Potassium 3.9 (3.6-5.2) mmol/L Chloride 107 (100-108) mmol/L Carbon Dioxide 26 (21-32) mmol/L Anion Gap 8.5 (5.0-14.0) mmol/L BUN 6 L (7-18) mg/dL Creatinine 0.8 (0.6-1.0) mg/dL Est Cr Clr Drug Dosing 96.58 mL/min Estimated GFR (MDRD) > 60 (>60) Glucose 82 (74-106) mg/dL Calcium 8.0 L (8.5-10.1) mg/dL Total Bilirubin 0.5 D (0.2-1.0) mg/dL AST 380 H D (15-37) U/L ALT 244 H (12-78) U/L Alkaline Phosphatase 64 (46-116) U/L Total Protein 5.9 L (6.4-8.2) g/dL Albumin 3.2 L (3.4-5.0) g/dL Globulin 2.7 (2.3-3.5) g/dL Albumin/Globulin Ratio 1.2 (1.2-2.2) Amylase (25-115) U/L Lipase (73-393) U/L Urine Color (YELLOW) Urine Appearance (CLEAR) Urine pH (5.0-8.0) Ur Specific [place] (1.008-1.030) Urine Protein (NEGATIVE) mg/dL Urine Glucose (UA) (NEGATIVE) mg/dL Urine Ketones (NEGATIVE) mg/dL Urine Occult Blood (NEGATIVE) Urine Nitrite (NEGATIVE) Urine Bilirubin (NEGATIVE) Urine Urobilinogen (0.2-1.0) EU/dL Ur Leukocyte Esterase (NEGATIVE) Urine RBC (0-5) Urine WBC (0-5) Ur Epithelial Cells Urine Bacteria Urine HCG, Qual Med Orders - Current: Current Medications Hydromorphone HCl (Dilaudid) 1 mg IVPUSH Q1H PRN PRN Reason: Pain Last Admin: 12/10/19 08:41 Dose: 1 mg Documented by: Sodium Chloride (Normal Saline) 1,000 mls @ 125 mls/hr IV ASDIRECTED [facility] Last Admin: 12/10/19 05:56 Dose: 125 mls/hr Documented by: Ondansetron HCl (Zofran) 4 mg IV Q4H PRN PRN Reason: Nausea/Vomiting Last Admin: 12/10/19 04:31 Dose: 4 mg Documented by: Sertraline HCl (Zoloft) 50 mg PO DAILY [facility] Last Admin: 12/10/19 08:41 Dose: 50 mg Documented by: Sodium Chloride (Saline Flush) 10 ml FLUSH ASDIRECTED PRN PRN Reason: Keep Vein Open Last Admin: 12/09/19 20:26 Dose: 10 ml Documented by: Discontinued Medications Hydromorphone HCl (Dilaudid) 1 mg IVPUSH ONETIME ONE Stop: 12/09/19 19:09 Last Admin: 12/09/19 19:28 Dose: 1 mg Documented by: Hydromorphone HCl (Dilaudid) 1 mg IVPUSH ONETIME ONE Stop: 12/09/19 20:10 Last Admin: 12/09/19 20:15 Dose: 1 mg Documented by: Lactated Ringer's (Ringers, Lactated) 1,000 mls @ 500 mls/hr IV ASDIRECTED [facility] Last Admin: 12/09/19 19:27 Dose: 500 mls/hr Documented by: Sodium Chloride (Normal Saline) 80 mls @ 3 mls/sec IV ASDIRECTED [facility] Last Admin: 12/09/19 20:26 Dose: 3 mls/sec Documented by: Iopamidol (Isovue-300 (61%)) 100 ml IV . DIRECTED [facility] Last Admin: 12/09/19 20:26 Dose: 100 ml Documented by: Lorazepam (Ativan) 0.5 mg IVPUSH ONETIME ONE Stop: 12/10/19 08:38 Last Admin: 12/10/19 09:22 Dose: 0.5 mg Documented by: Ondansetron HCl (Zofran) 4 mg IVPUSH ONETIME ONE Stop: 12/09/19 19:10 Last Admin: 12/09/19 19:27 Dose: 4 mg Documented by: - Exam Quality Assessment: No: Supplemental Oxygen General: Alert, Oriented, Cooperative, Mild Distress Lungs: Normal Respiratory Effort GI/Abdominal Exam: Soft, No Distention Extremities: No Pedal Edema Psy/Mental Status: Alert, Normal Affect Sepsis Event Note - Evaluation Sepsis Screening Result: No Definite Risk - Focused Exam Vital Signs: Vital Signs Temp Pulse Resp BP Pulse Ox 12/10/19 07:20 36.8 C 64 16 94/62 94 L 12/10/19 01:50 36.2 C 82 16 103/54 L 98 12/09/19 22:51 36.9 C 94 16 112/72 98 - Problem List Review Problem List Initiated/Reviewed/Updated: Yes - My Orders Last 24 Hours: My Active Orders 12/10/19 06:14 Cholangiopancreatography [MR] Routine 12/10/19 06:16 Antiembolic Devices [RC] .Routine SCD [Sequential Compression Device] [OM.PC] Routine 12/10/19 09:33 Acetaminophen [TylenoL] 650 mg PO Q4H PRN 12/10/19 09:45 Nicotine [Habitrol] 14 mg TRDERM DAILY - Plan Plan:: ASSESSMENT AND PLAN - Acute pancreatitis-acute pain with elevated lipase and now more significantly elevated lipase and elevation of both ALT and AST. This raises concern for gallstone pancreatitis. MRCP was performed today and showed mild dilation of the biliary ducts but no obvious obstructing stone. She did have her gallbladder out at age 13. It is possible that she did pass a small stone. Sphincter of Oddi dysfunction could be considered though less likely. She does not drink enough alcohol to cause pancreatitis. -N.p.o. for now -Symptomatic management of pain and nausea -Repeat labs in the morning Tobacco dependence- -encourage cessation. -Nicotine patch Maintenance issues - - DVT prophylaxis -mechanical - GI prophylaxis -not indicated - Nutrition -n.p.o. with small amounts of caffeine, ice chips Disposition-I would anticipate discharge home after the hospital stay Sonu Gaona M.D.
[2019-12-10] MEDS: Acetaminophen 325 MG Tab PO PRN (10:29)
[2019-12-10] MEDS: Nicotine 14 MG/24 Hr Patch TRDERM SCH (10:30)
--- NOTE | 2019-12-10 11:30 | MR ---
Cholangiopancreatography CLINICAL HISTORY: Gallstone pancreatitis COMPARISON: CT abdomen 12/09/2019 TECHNIQUE: Multiple images of the biliary system were obtained. All images were obtained on a 1.5 Estee Siemens unit. FINDINGS: There is mild intrahepatic biliary prominence similar to that seen on CT. The common hepatic duct measures 9 mm. The mid common bile duct measures 7 mm. Pancreatic duct has a normal course and caliber. No abnormal fluid collections or inflammatory changes are seen. There is some narrowing of the common bile duct just beyond its junction with the pancreatic duct. This is seen into the ampulla. No filling defects are identified IMPRESSION: Previous cholecystectomy Mild biliary prominence is likely related to the above No mass or filling defects identified No evidence of pancreatitis
[2019-12-10] MEDS: Ketorolac 30 MG/ML SDV IVPUSH PRN ×2 (13:20→20:59)
[2019-12-10] MEDS ORDERED: fentaNYL 100 MCG/2 ML SDV IVPUSH ONE (22:35)
[2019-12-11] MEDS: HYDROmorphone 1 MG/ML Syringe IVPUSH PRN ×3 (04:24→09:13)
[2019-12-11] MEDS: Ketorolac 30 MG/ML SDV IVPUSH PRN ×2 (04:24→10:34)
[2019-12-11] MEDS: Sodium Chloride 0.9% 1,000 ML IV SCH (06:41)
[2019-12-11] MEDS: Ondansetron 4 MG/2 ML SDV IV PRN (07:16)
[2019-12-11] MEDS: Sertraline 50 MG Tab PO SCH (08:32)
[2019-12-11] MEDS: Nicotine 14 MG/24 Hr Patch TRDERM SCH (09:13)
[2019-12-11] MEDS ORDERED: Sertraline 50 MG Tab PO ONE (10:45)
--- NOTE | 2019-12-11 10:58 | PCM.PN ---
- General Info Date of Service: 12/11/19 Subjective Update: Patient did have a fair amount of pain overnight which finally improved after she received a one-time dose of fentanyl. Pain is much better today. She is hungry and hoping to get something to eat. No nausea or vomiting. No fevers. Lipase and liver numbers are better today. Functional Status: Reports: Pain Controlled - Review of Systems General: Denies: Fever Gastrointestinal: Reports: Abdominal Pain - Patient Data Vitals - Most Recent: Last Vital Signs Temp 37.2 C 12/11/19 07:27 Pulse 92 12/11/19 07:27 Resp 16 12/11/19 04:19 BP 103/59 L 12/11/19 07:27 Pulse Ox 96 12/11/19 07:27 Weight - Most Recent: 65.68 kg I&O - Last 24 Hours: Intake & Output 12/10/19 12/11/19 12/11/19 22:59 06:59 14:59 Intake Total 1476 1361 30 Output Total 1000 350 800 Balance 476 1011 -770 Lab Results Last 24 Hours: Laboratory Results - last 24 hr 12/11/19 12/11/19 Range/Units 09:02 09:02 WBC 5.3 (4.5-11.0) K/uL RBC 3.81 (3.30-5.50) M/uL Hgb 12.1 (12.0-15.0) g/dL Hct 38.0 (36.0-48.0) % MCV 100 H (80-98) fL MCH 32 H (27-31) pg MCHC 32 (32-36) % Plt Count 281 (150-400) K/uL Neut % (Auto) 71 H (36-66) % Lymph % (Auto) 20 L (24-44) % [place] % (Auto) 6 (2-6) % Eos % (Auto) 3 (2-4) % Baso % (Auto) 0 (0-1) % Sodium 134 L (140-148) mmol/L Potassium 4.1 (3.6-5.2) mmol/L Chloride 103 (100-108) mmol/L Carbon Dioxide 17 L (21-32) mmol/L Anion Gap 18.1 H (5.0-14.0) mmol/L BUN 9 (7-18) mg/dL Creatinine 0.8 (0.6-1.0) mg/dL Est Cr Clr Drug Dosing 96.58 mL/min Estimated GFR (MDRD) > 60 (>60) Glucose 47 L* (74-106) mg/dL Calcium 8.0 L (8.5-10.1) mg/dL Total Bilirubin 0.6 (0.2-1.0) mg/dL AST 161 H (15-37) U/L ALT 261 H (12-78) U/L Alkaline Phosphatase 83 (46-116) U/L Total Protein 5.8 L (6.4-8.2) g/dL Albumin 3.1 L (3.4-5.0) g/dL Globulin 2.7 (2.3-3.5) g/dL Albumin/Globulin Ratio 1.2 (1.2-2.2) Lipase 112 (73-393) U/L Med Orders - Current: Current Medications Acetaminophen (Tylenol) 650 mg PO Q4H PRN PRN Reason: Pain/Fever Last Admin: 12/10/19 10:29 Dose: 650 mg Documented by: Hydromorphone HCl (Dilaudid) 1 mg IVPUSH Q1H PRN PRN Reason: Pain (severe 7-10) Last Admin: 12/11/19 09:13 Dose: 1 mg Documented by: Ketorolac Tromethamine (Toradol) 30 mg IVPUSH Q6H PRN PRN Reason: Pain (moderate 4-6) Stop: 12/15/19 12:22 Last Admin: 12/11/19 10:34 Dose: 30 mg Documented by: Nicotine (Habitrol) 14 mg TRDERM DAILY [facility] Last Admin: 12/11/19 09:13 Dose: 14 mg Documented by: Ondansetron HCl (Zofran) 4 mg IV Q4H PRN PRN Reason: Nausea/Vomiting Last Admin: 12/11/19 07:16 Dose: 4 mg Documented by: Sertraline HCl (Zoloft) 100 mg PO DAILY [facility] Sodium Chloride (Saline Flush) 10 ml FLUSH ASDIRECTED PRN PRN Reason: Keep Vein Open Last Admin: 12/09/19 20:26 Dose: 10 ml Documented by: Discontinued Medications Fentanyl (Sublimaze) 50 mcg IVPUSH ONETIME ONE Stop: 10/23/20 22:36 Last Admin: 12/10/19 22:49 Dose: 50 mcg Documented by: Hydromorphone HCl (Dilaudid) 1 mg IVPUSH ONETIME ONE Stop: 12/09/19 19:09 Last Admin: 12/09/19 19:28 Dose: 1 mg Documented by: Hydromorphone HCl (Dilaudid) 1 mg IVPUSH ONETIME ONE Stop: 12/09/19 20:10 Last Admin: 12/09/19 20:15 Dose: 1 mg Documented by: Lactated Ringer's (Ringers, Lactated) 1,000 mls @ 500 mls/hr IV ASDIRECTED [facility] Last Admin: 12/09/19 19:27 Dose: 500 mls/hr Documented by: Sodium Chloride (Normal Saline) 80 mls @ 3 mls/sec IV ASDIRECTED [facility] Last Admin: 12/09/19 20:26 Dose: 3 mls/sec Documented by: Sodium Chloride (Normal Saline) 1,000 mls @ 125 mls/hr IV ASDIRECTED [facility] Last Admin: 12/11/19 06:41 Dose: 125 mls/hr Documented by: Iopamidol (Isovue-300 (61%)) 100 ml IV . DIRECTED [facility] Last Admin: 12/09/19 20:26 Dose: 100 ml Documented by: Lorazepam (Ativan) 0.5 mg IVPUSH ONETIME ONE Stop: 12/10/19 08:38 Last Admin: 12/10/19 09:22 Dose: 0.5 mg Documented by: Ondansetron HCl (Zofran) 4 mg IVPUSH ONETIME ONE Stop: 12/09/19 19:10 Last Admin: 12/09/19 19:27 Dose: 4 mg Documented by: Sertraline HCl (Zoloft) 50 mg PO DAILY [facility] Last Admin: 12/11/19 08:32 Dose: 50 mg Documented by: Sertraline HCl (Zoloft) 50 mg PO ONETIME ONE Stop: 12/11/19 10:46 - Exam Quality Assessment: No: Supplemental Oxygen General: Alert, Oriented, Cooperative, No Acute Distress Lungs: Normal Respiratory Effort GI/Abdominal Exam: No Distention Extremities: No Pedal Edema Psy/Mental Status: Alert, Normal Affect Sepsis Event Note - Evaluation Sepsis Screening Result: No Definite Risk - Focused Exam Vital Signs: Vital Signs Temp Pulse Resp BP Pulse Ox 12/11/19 07:27 37.2 C 92 103/59 L 96 12/11/19 04:19 37.2 C 98 16 109/66 99 - Problem List Review Problem List Initiated/Reviewed/Updated: Yes - My Orders Last 24 Hours: My Active Orders 12/10/19 10:00 Nicotine [Habitrol] 14 mg TRDERM DAILY 12/10/19 12:21 Ketorolac [Toradol] 30 mg IVPUSH Q6H PRN 12/11/19 Breakfast Clear Liquid Diet [DIET] 12/11/19 10:56 oxyCODONE 5 mg PO Q4H PRN Convert IV to Saline Lock [OM.PC] Routine 12/11/19 10:57 Up ad Jo Ann [RC] ASDIRECTED 12/11/19 Lunch Regular Diet [DIET] 12/12/19 05:00 COMPREHENSIVE METABOLIC PN,CMP [CHEM] Timed 12/12/19 09:00 Sertraline [Zoloft] 100 mg PO DAILY - Plan Plan:: ASSESSMENT AND PLAN - Acute pancreatitis and transaminitis-I suspect that she passed a gallstone even though MRCP did not definitively show this. Labs are better today. Symptoms are much better today. -Trial of clear liquids this morning and advance to regular if she tolerates -Symptomatic management of pain and nausea -Repeat labs in the morning Tobacco dependence- -encourage cessation -Nicotine patch Maintenance issues - - DVT prophylaxis -mechanical - GI prophylaxis -not indicated - Nutrition -clear liquids, advance to regular if she tolerates Disposition-I would anticipate discharge home after the hospital stay Sonu Gaona M.D.
[2019-12-11] MEDS: oxyCODONE 5 MG Tab PO PRN ×3 (12:32→22:03)
[2019-12-11] MEDS ORDERED: Melatonin 3 MG Tab PO PRN (18:49)
[2019-12-12] MEDS ORDERED: Bisacodyl 5 MG Tab PO PRN (07:06)
[2019-12-12] MEDS: Acetaminophen 325 MG Tab PO PRN (07:13)
[2019-12-12 07:20] VITALS: BP 117/71; PULSE 100
[2019-12-12] MEDS ORDERED: Sertraline 50 MG Tab PO SCH (09:00)
[2019-12-12] MEDS: Nicotine 14 MG/24 Hr Patch TRDERM SCH (09:00)
--- NOTE | 2019-12-12 10:43 | PCM.DCSUM1 ---
Discharge Summary - Hospital Course Brief History: 24-year-old female with history of gallstone pancreatitis 11 years ago who presented with acute onset of abdominal pain with nausea and vomiting. She is admitted for management of acute pancreatitis. Diagnosis: Stroke: No - Discharge Data Discharge Date: 12/12/19 Discharge Disposition: Home, Self-Care 01 Condition: Good - Referral to Home Health Primary Care Physician: PCP None - Discharge Diagnosis/Problem(s) (1) Gallstone pancreatitis SNOMED Code(s): 09162590 ICD Code: K85.10 - BILIARY ACUTE PANCREATITIS WITHOUT NECROSIS OR INFECTION Status: Suspected (2) Tobacco dependence SNOMED Code(s): 69818828 ICD Code: F17.200 - NICOTINE DEPENDENCE, UNSPECIFIED, UNCOMPLICATED Status: Chronic - Patient Summary/Data Hospital Course: Domenica presented to the emergency room with acute onset of abdominal pain with nausea and vomiting. Work-up in the emergency room was suggestive of acute pancreatitis with an elevation of lipase to 890. AST was mildly elevated at 150 and ALT was elevated at 90. Patient had had some alcohol consumption recently and it was thought that this was the likely contributing factor. She was admitted to the hospital for further management. She was made n.p.o. and provided symptomatic management with pain medications. Overnight following admission she was fairly uncomfortable and continued to be the next day. The next morning her lipase had doubled and her AST and ALT had jumped even further with levels near 400 for the AST. I became suspicious that she may have passed a gallstone even though she has had a cholecystectomy more than 10 years prior. We did perform an MRCP which was unremarkable and did not show any evidence for persistent stone or obstructing stone. Her pain steadily improved from that morning on. She has had only mild pain overnight. Her lipase is back to normal. Liver enzymes are improving. No nausea or vomiting. No fevers. I strongly suspect she passed a stone even though we did not find evidence for 1. Sphincter of Oddi dysfunction or some other obstructing issue could have caused a similar finding. She is doing well at this time with no pathology noted on imaging. She is going to be discharged home with plan for routine follow-up. - Patient Instructions Diet: Regular Diet as Tolerated Activity: As Tolerated Showering/Bathing: May Shower Notify Provider of: Fever Other/Special Instructions: 1. You were in the hospital for management of abdominal pain that I suspect was caused by a stone in the biliary tract that caused a temporary obstruction. This temporary obstruction led to the short- lived rise in pancreatic enzymes as well as hepatic enzymes. Your condition and all of the blood tests are improving with supportive care is provided in the hospital. No specific treatment is needed at this time. There are no limitations on your activity at this time. 2. Continue your usual home medications. - Discharge Plan *PRESCRIPTION DRUG MONITORING PROGRAM REVIEWED*: No *COPY OF PRESCRIPTION DRUG MONITORING REPORT IN PATIENT [place]: No Home Medications: Home Meds Methylphenidate HCl [Methylphenidate HCl Cd] 20 mg PO BID 01/19/17 [History] Sertraline HCl 100 mg PO DAILY 01/19/17 [History] medroxyPROGESTERone [Depo-Provera] 150 mg .XX DAILY 08/28/17 [History] Oxygen Therapy Mode: Room Air Patient Handouts: Acute Pancreatitis, Steps to Quit Smoking Referrals: PCP,None [Primary Care Provider] - (f/u as needed if your symptoms return) - Discharge Summary/Plan Comment DC Time >30 min.: No - Patient Data Vitals - Most Recent: Last Vital Signs Temp 37.3 C 12/12/19 07:18 Pulse 100 12/12/19 07:18 Resp 18 12/12/19 07:18 BP 117/71 12/12/19 07:18 Pulse Ox 98 12/12/19 07:18 Weight - Most Recent: 65.68 kg I&O - Last 24 hours: Intake & Output 12/11/19 12/12/19 12/12/19 22:59 06:59 14:59 Intake Total 350 Balance 350 Lab Results - Last 24 hrs: Laboratory Results - last 24 hr 12/12/19 Range/Units 05:49 Sodium 139 L (140-148) mmol/L Potassium 3.8 (3.6-5.2) mmol/L Chloride 108 (100-108) mmol/L Carbon Dioxide 24 (21-32) mmol/L Anion Gap 10.8 (5.0-14.0) mmol/L BUN 4 L D (7-18) mg/dL Creatinine 0.8 (0.6-1.0) mg/dL Est Cr Clr Drug Dosing 96.58 mL/min Estimated GFR (MDRD) > 60 (>60) Glucose 101 (74-106) mg/dL Calcium 8.1 L (8.5-10.1) mg/dL Total Bilirubin 0.1 L D (0.2-1.0) mg/dL AST 66 H (15-37) U/L ALT 179 H (12-78) U/L Alkaline Phosphatase 87 (46-116) U/L Total Protein 5.4 L (6.4-8.2) g/dL Albumin 2.9 L (3.4-5.0) g/dL Globulin 2.5 (2.3-3.5) g/dL Albumin/Globulin Ratio 1.2 (1.2-2.2) Med Orders - Current: Current Medications Acetaminophen (Tylenol) 650 mg PO Q4H PRN PRN Reason: Pain/Fever Last Admin: 12/12/19 07:13 Dose: 650 mg Documented by: Bisacodyl (Dulcolax) 5 mg PO ASDIRECTED PRN PRN Reason: Constipation Last Admin: 12/12/19 07:14 Dose: 5 mg Documented by: Hydromorphone HCl (Dilaudid) 1 mg IVPUSH Q1H PRN PRN Reason: Pain (severe 7-10) Last Admin: 12/11/19 09:13 Dose: 1 mg Documented by: Ketorolac Tromethamine (Toradol) 30 mg IVPUSH Q6H PRN PRN Reason: Pain (moderate 4-6) Stop: 12/15/19 12:22 Last Admin: 12/11/19 10:34 Dose: 30 mg Documented by: Melatonin (Melatonin) 9 mg PO BEDTIME PRN PRN Reason: Sleep Last Admin: 12/11/19 19:19 Dose: 9 mg Documented by: Nicotine (Habitrol) 14 mg TRDERM DAILY [facility] Last Admin: 12/12/19 09:00 Dose: Not Given Documented by: Ondansetron HCl (Zofran) 4 mg IV Q4H PRN PRN Reason: Nausea/Vomiting Last Admin: 12/11/19 07:16 Dose: 4 mg Documented by: Oxycodone HCl (Oxycodone) 5 mg PO Q4H PRN PRN Reason: Pain (moderate 4-6) Last Admin: 12/11/19 22:03 Dose: 5 mg Documented by: Sertraline HCl (Zoloft) 100 mg PO DAILY [facility] Last Admin: 12/12/19 09:00 Dose: Not Given Documented by: Sodium Chloride (Saline Flush) 10 ml FLUSH ASDIRECTED PRN PRN Reason: Keep Vein Open Last Admin: 12/09/19 20:26 Dose: 10 ml Documented by: Discontinued Medications Fentanyl (Sublimaze) 50 mcg IVPUSH ONETIME ONE Stop: 12/10/19 22:36 Last Admin: 12/10/19 22:49 Dose: 50 mcg Documented by: Hydromorphone HCl (Dilaudid) 1 mg IVPUSH ONETIME ONE Stop: 12/09/19 19:09 Last Admin: 12/09/19 19:28 Dose: 1 mg Documented by: Hydromorphone HCl (Dilaudid) 1 mg IVPUSH ONETIME ONE Stop: 12/09/19 20:10 Last Admin: 12/09/19 20:15 Dose: 1 mg Documented by: Lactated Ringer's (Ringers, Lactated) 1,000 mls @ 500 mls/hr IV ASDIRECTED [facility] Last Admin: 12/09/19 19:27 Dose: 500 mls/hr Documented by: Sodium Chloride (Normal Saline) 80 mls @ 3 mls/sec IV ASDIRECTED [facility] Last Admin: 12/09/19 20:26 Dose: 3 mls/sec Documented by: Sodium Chloride (Normal Saline) 1,000 mls @ 125 mls/hr IV ASDIRECTED [facility] Last Admin: 12/11/19 06:41 Dose: 125 mls/hr Documented by: Iopamidol (Isovue-300 (61%)) 100 ml IV . DIRECTED [facility] Last Admin: 12/09/19 20:26 Dose: 100 ml Documented by: Lorazepam (Ativan) 0.5 mg IVPUSH ONETIME ONE Stop: 12/10/19 08:38 Last Admin: 12/10/19 09:22 Dose: 0.5 mg Documented by: Ondansetron HCl (Zofran) 4 mg IVPUSH ONETIME ONE Stop: 12/09/19 19:10 Last Admin: 12/09/19 19:27 Dose: 4 mg Documented by: Sertraline HCl (Zoloft) 50 mg PO DAILY [facility] Last Admin: 12/11/19 08:32 Dose: 50 mg Documented by: Sertraline HCl (Zoloft) 50 mg PO ONETIME ONE Stop: 12/11/19 10:46 Last Admin: 12/11/19 11:03 Dose: 50 mg Documented by:
== END 2019-12-12 11:15 | disposition home or self-care (01) | DRG 440 ==
LOC: JP.ED 18:18 → JP.2SS 21:39
PROVIDERS: ADMIT Family Medicine; ATTEND Internal Medicine
DX: K85.10 Biliary acute pancreatitis without necrosis or infection (principal); H54.7 Unspecified visual loss; K21.9 Gastro-esophageal reflux disease without esophagitis; G89.29 Other chronic pain; G43.909 Migraine, unspecified, not intractable, without status migrainosus; F90.9 Attention-deficit hyperactivity disorder, unspecified type; F41.9 Anxiety disorder, unspecified; F32.9 Major depressive disorder, single episode, unspecified; F17.210 Nicotine dependence, cigarettes, uncomplicated; Z79.899 Other long term (current) drug therapy; Z90.49 Acquired absence of other specified parts of digestive tract; Z98.890 Other specified postprocedural states; Z88.2 Allergy status to sulfonamides
CPT/HCPCS: 36415; 74177; 74181; 74181-26; 80053; 81001; 81025; 82150; 83690; 85025; 85027; 96374; 96375; 96376; 99284; 99285-25; A9270-GY; J1170; J1885; J2060; J2405; J3010; J7030; J7120; Q9967

== ENCOUNTER 2019-12-14 09:02 | Emergency (ER) | payer OTHER ==
[2019-12-14 09:15] VITALS: BP 138/82; PULSE 94
--- NOTE | 2019-12-14 09:38 | EDM.PDOC ---
ED HPI GENERAL MEDICAL PROBLEM - General Chief Complaint: Abdominal Pain Stated Complaint: ABDOMINAL PAIN Time Seen by Provider: 12/14/19 09:35 Source of Information: Reports: Patient History Limitations: Reports: No Limitations - History of Present Illness INITIAL COMMENTS - FREE TEXT/NARRATIVE: pt arrived interested in going back to work. She is having some low grade pain 3-4 and she did vomit once during the nite.She was able to hold fluids down and eat a muffin this am. She is not nauseated at this time. Onset: Today, Other (pt did vomit during the nite. ) Duration: Hour(s): Location: Reports: Abdomen Associated Symptoms: Reports: Nausea/Vomiting, Other (pt is having some low grade abdomanal pain. ) Abdominal Pain Score (Numeric/FACES): 4 - Related Data Allergies Allergy/AdvReac Type Severity Reaction Status Date / Time Sulfa (Sulfonamide Allergy Intermediate Rash Verified 12/14/19 09:15 Antibiotics) lanolin alcohols Allergy Hives Verified 12/14/19 09:15 Home Meds: Home Meds Methylphenidate HCl [Methylphenidate HCl Cd] 20 mg PO BID 01/19/17 [History] Sertraline HCl 100 mg PO DAILY 01/19/17 [History] medroxyPROGESTERone [Depo-Provera] 150 mg .XX DAILY 08/28/17 [History] Past Medical History HEENT History: Reports: Impaired Vision Cardiovascular History: Reports: None Respiratory History: Reports: None Gastrointestinal History: Reports: GERD, Irritable Bowel Syndrome, Pancreatitis Genitourinary History: Reports: STD [employer]ING [employer]CH[employer] History: 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 left foot FX Neurological History: Reports: Migraines Psychiatric History: Reports: ADHD, Anxiety, Depression Endocrine/Metabolic History: Reports: None Hematologic History: Reports: None Immunologic History: Reports: None Oncologic (Cancer) History: Reports: None Dermatologic History: Reports: Eczema Other Dermatologic History: eczema - Infectious Disease History Infectious Disease History: Reports: None - Past Surgical History Head Surgeries/Procedures: Reports: None HEENT Surgical History: Reports: Oral Surgery Other HEENT Surgeries/Procedures: wisdom teeth out on Jan 02, 2017 Cardiovascular Surgical History: Reports: None GI Surgical History: Reports: Cholecystectomy, Colonoscopy Female Surgical History: Reports: Section Neurological Surgical History: Reports: None Social & Family History - Family History Family Medical History: Noncontributory - Tobacco Use Tobacco Use Status *Q: Current Every Day Tobacco User Years of Tobacco use: 4 Packs/Tins Daily: 0.3 - Caffeine Use Caffeine Use: Reports: Coffee, Energy Drinks, Soda, Tea - Recreational Drug Use Recreational Drug Use: No ED ROS GENERAL - Review of Systems Review Of Systems: See Below Constitutional: Reports: No Symptoms HEENT: Reports: No Symptoms Respiratory: Reports: No Symptoms Cardiovascular: Reports: No Symptoms Endocrine: Reports: No Symptoms GI/Abdominal: Reports: No Symptoms : Reports: No Symptoms Musculoskeletal: Reports: No Symptoms Skin: Reports: No Symptoms ED EXAM, GI/ABD - Physical Exam Exam: See Below Text/Narrative:: pt arrived with a request for a note to return to work. She has had some low grade abdomanal pain and did vomit once during the nite. Exam Limited By: No Limitations General Appearance: Alert, No Apparent Distress, Other (pupils equal and reactive. ) Ears: Normal TMs Nose: Normal Inspection Throat/Mouth: Normal Inspection Head: Atraumatic Neck: Normal Inspection Respiratory/Chest: No Respiratory Distress Cardiovascular: Regular Rate, Rhythm GI/Abdominal Exam: Tender, Other (pt has mild tenderness in the epigastric area. ) (Female) Exam: Deferred Back Exam: Normal Inspection Extremities: Normal Inspection Neurological: Alert, Oriented, Normal Cognition Psychiatric: Anxious Course - Vital Signs Last Recorded V/S: Last Vital Signs Temp 36.4 C 12/14/19 09:13 Pulse 94 12/14/19 09:13 Resp 18 12/14/19 09:13 BP 138/82 12/14/19 09:13 Pulse Ox 97 12/14/19 09:13 - Orders/Labs/Meds Labs: Laboratory Tests 12/14/19 12/14/19 12/14/19 Range/Units 09:45 09:45 09:45 WBC 5.1 (4.5-11.0) K/uL RBC 4.58 (3.30-5.50) M/uL Hgb 14.7 D (12.0-15.0) g/dL Hct 43.8 (36.0-48.0) % MCV 96 (80-98) fL MCH 32 H (27-31) pg MCHC 34 (32-36) % Plt Count 322 (150-400) K/uL Neut % (Auto) 56 (36-66) % Lymph % (Auto) 28 (24-44) % [place] % (Auto) 9 H (2-6) % Eos % (Auto) 6 H (2-4) % Baso % (Auto) 1 (0-1) % Sodium 136 L (140-148) mmol/L Potassium 4.1 (3.6-5.2) mmol/L Chloride 102 (100-108) mmol/L Carbon Dioxide 26 (21-32) mmol/L Anion Gap 12.1 (5.0-14.0) mmol/L BUN 8 D (7-18) mg/dL Creatinine 0.9 (0.6-1.0) mg/dL Est Cr Clr Drug Dosing 85.98 mL/min Estimated GFR (MDRD) > 60 (>60) Glucose 91 (74-106) mg/dL Calcium 9.5 D (8.5-10.1) mg/dL Total Bilirubin 0.6 D (0.2-1.0) mg/dL AST 30 (15-37) U/L ALT 138 H (12-78) U/L Alkaline Phosphatase 83 (46-116) U/L Total Protein 7.7 (6.4-8.2) g/dL Albumin 4.2 (3.4-5.0) g/dL Globulin 3.5 (2.3-3.5) g/dL Albumin/Globulin Ratio 1.2 (1.2-2.2) Amylase 49 D (25-115) U/L Lipase 140 (73-393) U/L - Re-Assessments/Exams Free Text/Narrative Re-Assessment/Exam: 12/14/19 10:30 pt was found to have a normal wbc, normal liver enzymes and normal amylase, and lipase. Departure - Departure Time of Disposition: 10:19 Disposition: Home, Self-Care 01 Condition: Fair Clinical Impression: History of pancreatitis, Nausea - Discharge Information Referrals: Frederick Ventura MD [Primary Care Provider] - Forms: ED Department Discharge Care Plan Goals: liver and pancreatic enzymes were checked and were within normal range. 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 She does need to avoid all etoh. Sepsis Event Note (ED) - Evaluation Sepsis Screening Result: No Definite Risk - Focused Exam Vital Signs: Vital Signs Temp Pulse Resp BP Pulse Ox 12/14/19 09:13 36.4 C 94 18 138/82 97
== END 2019-12-14 10:28 | disposition home or self-care (01) ==
LOC: JP.ED 09:02
DX: R11.2 Nausea with vomiting, unspecified (principal); F41.9 Anxiety disorder, unspecified; F32.9 Major depressive disorder, single episode, unspecified; F17.210 Nicotine dependence, cigarettes, uncomplicated; Z88.2 Allergy status to sulfonamides; Z88.8 Allergy status to other drugs, medicaments and biological substances; Z90.49 Acquired absence of other specified parts of digestive tract; Z79.899 Other long term (current) drug therapy
CPT/HCPCS: 36415; 80053; 82150; 83690; 85025; 99282; 99284

== ENCOUNTER 2020-01-02 23:22 | Observation (INO) | payer OTHER ==
[2020-01-03] MEDS ORDERED: Sodium Chloride 0.9% 10 ML Syringe FLUSH PRN (00:20)
[2020-01-03] MEDS ORDERED: fentaNYL 100 MCG/2 ML SDV IVPUSH ONE (00:21)
[2020-01-03] MEDS ORDERED: Ondansetron 4 MG/2 ML SDV IVPUSH ONE (00:21)
--- NOTE | 2020-01-03 00:24 | EDM.PDOC ---
ED HPI GENERAL MEDICAL PROBLEM - General Chief Complaint: Abdominal Pain Stated Complaint: ABD PAIN Time Seen by Provider: 01/03/20 00:03 Source of Information: Reports: Patient, RN Notes Reviewed History Limitations: Reports: No Limitations - History of Present Illness INITIAL COMMENTS - FREE TEXT/NARRATIVE: 24-year-old female presents emergency department a complaint of abdominal pain, she does have a history of gallstone pancreatitis status post cholecystectomy I did have a flareup of pancreatitis last month at this particular event she admits to consuming a couple beers earlier this evening sudden onset abdominal pain in the left upper quadrant she is nauseated no fevers no shortness of breath or chest pain - Related Data Allergies Allergy/AdvReac Type Severity Reaction Status Date / Time Sulfa (Sulfonamide Allergy Intermediate Rash Verified 12/14/19 09:15 Antibiotics) lanolin alcohols Allergy Hives Verified 12/14/19 09:15 Home Meds: Home Meds Methylphenidate HCl [Methylphenidate HCl Cd] 20 mg PO DAILY 01/19/17 [History] Sertraline HCl 100 mg PO DAILY 01/19/17 [History] medroxyPROGESTERone [Depo-Provera] 150 mg .XX DAILY 08/28/17 [History] Past Medical History HEENT History: Reports: Impaired Vision Gastrointestinal History: Reports: GERD, Irritable Bowel Syndrome, Pancreatitis Genitourinary History: Reports: STD 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 left foot FX Neurological History: Reports: Migraines Psychiatric History: Reports: ADHD, Anxiety, Depression Hematologic History: Reports: None Immunologic History: Reports: None Oncologic (Cancer) History: Reports: None Dermatologic History: Reports: Eczema Other Dermatologic History: eczema - Infectious Disease History Infectious Disease History: Reports: None - Past Surgical History HEENT Surgical History: Reports: Oral Surgery Other HEENT Surgeries/Procedures: wisdom teeth out on Jan 02, 2017 GI Surgical History: Reports: Cholecystectomy, Colonoscopy Female Surgical History: Reports: Section Social & Family History - Family History Family Medical History: No Pertinent Family History - Tobacco Use Tobacco Use Status *Q: Current Every Day Tobacco User Years of Tobacco use: 10 Packs/Tins Daily: 1 Used Tobacco, but Quit: No Second Hand Smoke Exposure: No - Caffeine Use Caffeine Use: Reports: Coffee - Alcohol Use Date of Last Drink: 01/03/20 - Recreational Drug Use Recreational Drug Use: No ED ROS GENERAL - Review of Systems Review Of Systems: See Below Constitutional: Reports: No Symptoms HEENT: Reports: No Symptoms Respiratory: Reports: No Symptoms Cardiovascular: Reports: No Symptoms GI/Abdominal: Reports: Abdominal Pain, Nausea. Denies: Vomiting : Reports: No Symptoms ED EXAM, GI/ABD - Physical Exam Exam: See Below Exam Limited By: No Limitations General Appearance: Alert, WD/WN, No Apparent Distress Respiratory/Chest: No Respiratory Distress, Lungs Clear, Normal Breath Sounds, No Accessory Muscle Use, Chest Non-Tender Cardiovascular: Regular Rate, Rhythm, No Murmur GI/Abdominal Exam: Normal Bowel Sounds, Soft, Tender (Left upper quadrant) Course - Vital Signs Last Recorded V/S: Last Vital Signs Temp 96 F L 01/03/20 00:15 Pulse 120 H 01/03/20 00:15 Resp 18 01/03/20 00:15 BP 149/102 H 01/03/20 00:15 Pulse Ox 99 01/03/20 00:15 - Orders/Labs/Meds Orders: Active Orders 24 hr Category Date Time Status Peripheral IV Care [RC] . DIRECTED Care 01/03/20 00:20 Active Lactated Ringers [Ringers, Lactated] 1,000 ml Med 01/03/20 00:30 Active IV ASDIRECTED Sodium Chloride 0.9% [Saline Flush] Med 01/03/20 00:20 Active 10 ml FLUSH ASDIRECTED PRN Peripheral IV Insertion Adult [OM.PC] Urgent Oth 01/03/20 00:20 Ordered Medication Orders Lactated Ringer's (Ringers, Lactated) 1,000 mls @ 999 mls/hr IV ASDIRECTED MYA Last Admin: 01/03/20 00:33 Dose: 999 mls/hr Documented by: BHARGAVI Sodium Chloride (Saline Flush) 10 ml FLUSH ASDIRECTED PRN PRN Reason: Keep Vein Open Last Admin: 01/03/20 00:33 Dose: 10 ml Documented by: BHARGAVI Labs: Laboratory Tests 01/03/20 01/03/20 01/03/20 Range/Units 00:30 00:30 00:30 WBC 8.3 (4.5-11.0) K/uL RBC 4.42 (3.30-5.50) M/uL Hgb 14.3 (12.0-15.0) g/dL Hct 41.4 (36.0-48.0) % MCV 94 (80-98) fL MCH 32 H (27-31) pg MCHC 35 (32-36) % Plt Count 314 (150-400) K/uL Neut % (Auto) 63 (36-66) % Lymph % (Auto) 26 (24-44) % [place] % (Auto) 8 H (2-6) % Eos % (Auto) 2 (2-4) % Baso % (Auto) 0 (0-1) % Sodium 142 (140-148) mmol/L Potassium 3.4 L (3.6-5.2) mmol/L Chloride 106 (100-108) mmol/L Carbon Dioxide 21 (21-32) mmol/L Anion Gap 18.4 H (5.0-14.0) mmol/L BUN 8 (7-18) mg/dL Creatinine 0.8 (0.6-1.0) mg/dL Est Cr Clr Drug Dosing 96.73 mL/min Estimated GFR (MDRD) > 60 (>60) Glucose 87 (74-106) mg/dL Lactic Acid 0.9 (0.4-2.0) mmol/L Calcium 8.0 L D (8.5-10.1) mg/dL Total Bilirubin 0.2 D (0.2-1.0) mg/dL AST 111 H D (15-37) U/L ALT 73 (12-78) U/L Alkaline Phosphatase 76 (46-116) U/L Total Protein 7.1 (6.4-8.2) g/dL Albumin 4.1 (3.4-5.0) g/dL Globulin 3.0 (2.3-3.5) g/dL Albumin/Globulin Ratio 1.4 (1.2-2.2) Lipase 978 H (73-393) U/L HCG, Qual Urine Color (YELLOW) Urine Appearance (CLEAR) Urine pH (5.0-8.0) Ur Specific [place] (1.008-1.030) Urine Protein (NEGATIVE) mg/dL Urine Glucose (UA) (NEGATIVE) mg/dL Urine Ketones (NEGATIVE) mg/dL Urine Occult Blood (NEGATIVE) Urine Nitrite (NEGATIVE) Urine Bilirubin (NEGATIVE) Urine Urobilinogen (0.2-1.0) EU/dL Ur Leukocyte Esterase (NEGATIVE) Urine RBC (0-5) Urine WBC (0-5) Ur Epithelial Cells Amorphous Sediment Urine Bacteria Urine Mucus 01/03/20 01/03/20 Range/Units 00:30 00:54 WBC (4.5-11.0) K/uL RBC (3.30-5.50) M/uL Hgb (12.0-15.0) g/dL Hct (36.0-48.0) % MCV (80-98) fL MCH (27-31) pg MCHC (32-36) % Plt Count (150-400) K/uL Neut % (Auto) (36-66) % Lymph % (Auto) (24-44) % [place] % (Auto) (2-6) % Eos % (Auto) (2-4) % Baso % (Auto) (0-1) % Sodium (140-148) mmol/L Potassium (3.6-5.2) mmol/L Chloride (100-108) mmol/L Carbon Dioxide (21-32) mmol/L Anion Gap (5.0-14.0) mmol/L BUN (7-18) mg/dL Creatinine (0.6-1.0) mg/dL Est Cr Clr Drug Dosing mL/min Estimated GFR (MDRD) (>60) Glucose (74-106) mg/dL Lactic Acid (0.4-2.0) mmol/L Calcium (8.5-10.1) mg/dL Total Bilirubin (0.2-1.0) mg/dL AST (15-37) U/L ALT (12-78) U/L Alkaline Phosphatase (46-116) U/L Total Protein (6.4-8.2) g/dL Albumin (3.4-5.0) g/dL Globulin (2.3-3.5) g/dL Albumin/Globulin Ratio (1.2-2.2) Lipase (73-393) U/L HCG, Qual Negative Urine Color Yellow (YELLOW) Urine Appearance Clear (CLEAR) Urine pH 6.0 (5.0-8.0) Ur Specific [place] 1.010 (1.008-1.030) Urine Protein Negative (NEGATIVE) mg/dL Urine Glucose (UA) Negative (NEGATIVE) mg/dL Urine Ketones Negative (NEGATIVE) mg/dL Urine Occult Blood Moderate H (NEGATIVE) Urine Nitrite Negative (NEGATIVE) Urine Bilirubin Negative (NEGATIVE) Urine Urobilinogen 0.2 (0.2-1.0) EU/dL Ur Leukocyte Esterase Negative (NEGATIVE) Urine RBC 0-5 (0-5) Urine WBC 0-5 (0-5) Ur Epithelial Cells Rare Amorphous Sediment Not seen Urine Bacteria Few Urine Mucus Not seen Meds: Medications Generic Name Dose Route Start Last Admin Trade Name Freq PRN Reason Stop Dose Admin Lactated Ringer's 1,000 mls @ 999 mls/hr 01/03/20 00:30 01/03/20 00:33 Ringers, Lactated IV 999 mls/hr ASDIRECTED MYA Administration Sodium Chloride 10 ml 01/03/20 00:20 01/03/20 00:33 Saline Flush FLUSH 10 ml ASDIRECTED PRN Administration Keep Vein Open Discontinued Medications Generic Name Dose Route Start Last Admin Trade Name Freq PRN Reason Stop Dose Admin Fentanyl 50 mcg 01/03/20 00:21 01/03/20 00:31 Sublimaze IVPUSH 01/03/20 00:22 50 mcg ONETIME ONE Administration Ondansetron HCl 4 mg 01/03/20 00:21 01/03/20 00:31 Zofran IVPUSH 01/03/20 00:22 4 mg ONETIME ONE Administration Departure - Departure Time of Disposition: 01:34 Disposition: Admitted As Inpatient 65 Condition: Fair Clinical Impression: Acute pancreatitis Qualifiers: Pancreatitis type: unspecified pancreatitis type Acute pancreatitis complication: no infection or necrosis Qualified Code(s): K85.90 - Acute pancreatitis without necrosis or infection, unspecified - Discharge Information Referrals: Frederick Ventura MD [Primary Care Provider] - Forms: ED Department Discharge Sepsis Event Note (ED) - Evaluation Sepsis Screening Result: No Definite Risk - Focused Exam Vital Signs: Vital Signs Temp Pulse Resp BP Pulse Ox 01/03/20 00:15 96 F L 120 H 18 149/102 H 99 01/03/20 00:13 204.8 F H 120 H 18 149/102 H 99 - My Orders Last 24 Hours: My Active Orders 01/03/20 00:20 Peripheral IV Care [RC] . DIRECTED Sodium Chloride 0.9% [Saline Flush] 10 ml FLUSH ASDIRECTED PRN Peripheral IV Insertion Adult [OM.PC] Urgent 01/03/20 00:30 Lactated Ringers [Ringers, Lactated] 1,000 ml IV ASDIRECTED - Assessment/Plan Last 24 Hours: My Active Orders 01/03/20 00:20 Peripheral IV Care [RC] . DIRECTED Sodium Chloride 0.9% [Saline Flush] 10 ml FLUSH ASDIRECTED PRN Peripheral IV Insertion Adult [OM.PC] Urgent 01/03/20 00:30 Lactated Ringers [Ringers, Lactated] 1,000 ml IV ASDIRECTED Plan: Assessment Acuity = acute Site and laterality = pancreatitis Etiology = probably related to alcohol Manifestations = none Location of injury = Home Lab values = CBC unremarkable AST elevated 111 consistent with elevated liver en zymes lipase elevated 978 Plan Call discussed case hospitalist on-call at 130 currently agreed to come and evaluate the patient in the hospital for admission This note was dictated using Client[employer] voice recognition software please call with any questions on syntax or grammar.
[2020-01-03] MEDS ORDERED: Lactated Ringers 1,000 ML IV SCH ×2 (00:30→08:00)
[2020-01-03] MEDS: Lactated Ringers 1,000 ML IV SCH ×2 (02:20→06:32)
[2020-01-03] MEDS ORDERED: Melatonin 3 MG Tab PO PRN (02:23)
[2020-01-03] MEDS: fentaNYL 100 MCG/2 ML SDV IVPUSH PRN ×5 (02:51→14:29)
[2020-01-03] MEDS: Nicotine 14 MG/24 Hr Patch TRDERM SCH ×2 (02:51→08:13)
[2020-01-03] MEDS: Ondansetron 4 MG/2 ML SDV IV PRN ×2 (05:38→09:24)
--- NOTE | 2020-01-03 08:07 | PCM.HP.2 ---
H&P History of Present Illness - General Date of Service: 01/03/20 Admit Problem/Dx: Admission Diagnosis/Problem Admission Diagnosis/Problem Pancreatitis Source of Information: Patient, Provider History Limitations: Reports: No Limitations - History of Present Illness Initial Comments - Free Text/Narative: CC: My belly started hurting again HPI: Domenica presents to the emergency room with acute onset of upper abdominal pain. Pain started suddenly last night after she had 2 drinks. Pain is described as moderate to moderately severe sharp pain that is mostly located in the epigastrium but does radiate to the left side. Pain steadily increased after onset. She did not take anything to try to make it feel better. She is not aware of an obvious trigger to make the pain worse. Since the pain continued to get worse she came in for evaluation. She does report off-and-on pain over the past several weeks. Often this pain is after she eats food with onset within 30 minutes. These episodes have been much more mild. She did have associated nausea and vomiting last night and has had some nausea off and on over the past few weeks as well. She has not had any fevers. She does feel fatigued. She is occasionally short of breath though this is relatively mild. No complaints of sore throat, loss of taste or smell. She does endorse mild intermittent headaches. No myalgias. No definite Covid contacts but she does say that her roommate has not been feeling well for several days. This feels similar to her episode a few weeks ago when she was suspected to have gallstone pancreatitis. Work-up in the emergency room was fairly benign other than mild hypokalemia and a mild elevation of her lipase. She was admitted for observation with hydration and pain control as well as expedited work-up with the severity of her pain. Abdominal Pain Score (Numeric/FACES): 6 - Related Data Allergies/Adverse Reactions: Allergies Allergy/AdvReac Type Severity Reaction Status Date / Time Sulfa (Sulfonamide Allergy Intermediate Rash Verified 01/03/20 02:05 Antibiotics) lanolin alcohols Allergy Hives Verified 01/03/20 02:05 Home Medications: Home Meds Methylphenidate HCl [Methylphenidate HCl Cd] 20 mg PO DAILY 01/19/17 [History] Sertraline HCl 100 mg PO DAILY 01/19/17 [History] medroxyPROGESTERone [Depo-Provera] 150 mg .XX DAILY 08/28/17 [History] Past Medical History HEENT History: Reports: Impaired Vision Gastrointestinal History: Reports: GERD, Irritable Bowel Syndrome, Pancreatitis Genitourinary History: Reports: STD 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 left foot FX Neurological History: Reports: Migraines Psychiatric History: Reports: ADHD, Anxiety, Depression Hematologic History: Reports: None Immunologic History: Reports: None Oncologic (Cancer) History: Reports: None Dermatologic History: Reports: Eczema Other Dermatologic History: eczema - Infectious Disease History Infectious Disease History: Reports: None - Past Surgical History Head Surgeries/Procedures: Reports: None HEENT Surgical History: Reports: Oral Surgery Other HEENT Surgeries/Procedures: wisdom teeth out on Jan 02, 2017 Cardiovascular Surgical History: Reports: None GI Surgical History: Reports: Cholecystectomy, Colonoscopy Female Surgical History: Reports: Section Neurological Surgical History: Reports: None Social & Family History - Family History Family Medical History: No Pertinent Family History - Tobacco Use Tobacco Use Status *Q: Current Every Day Tobacco User Years of Tobacco use: 10 Packs/Tins Daily: 1 Used Tobacco, but Quit: No Second Hand Smoke Exposure: No - Caffeine Use Caffeine Use: Reports: Coffee - Alcohol Use Date of Last Drink: 01/03/20 - Recreational Drug Use Recreational Drug Use: No H&P Review of Systems - Review of Systems: Review Of Systems: See Below Free Text/Narrative: A complete 12 point review of systems was obtained. Pertinent positives and negatives are noted in the history of present illness. All other systems were reviewed and were negative except as noted. Exam - Exam Exam: See Below - Vital Signs Vital Signs: Last Vital Signs Temp 36.6 C 01/03/20 07:51 Pulse 77 01/03/20 07:51 Resp 14 01/03/20 07:51 BP 119/81 01/03/20 07:51 Pulse Ox 100 01/03/20 07:51 Weight: 65.317 kg - Exam Quality Assessment: No: Supplemental Oxygen General: Alert, Oriented, Cooperative, Mild Distress HEENT: Conjunctiva Clear. No: Mucosa Moist & [place] (dry), Scleral Icterus Neck: Supple, Trachea Midline Lungs: Clear to Auscultation, Normal Respiratory Effort Cardiovascular: Regular Rate, Regular Rhythm GI/Abdominal Exam: Normal Bowel Sounds, Soft, No Distention, Tender (Moderate epigastric). No: Guarding Extremities: No Pedal Edema. No: Increased Warmth Skin: Warm Neuro Extensive - Mental Status: Alert, Oriented x3, Nl Response to Commands Neuro Extensive - Motor, Sensory, Reflexes: No: Dysarthria, Abnormal Motor, Tremor Psychiatric: Alert, Normal Affect - Patient Data Lab Results Last 24 hrs: Laboratory Results - last 24 hr 01/03/20 01/03/20 01/03/20 Range/Units 00:30 00:30 00:30 WBC 8.3 (4.5-11.0) K/uL RBC 4.42 (3.30-5.50) M/uL Hgb 14.3 (12.0-15.0) g/dL Hct 41.4 (36.0-48.0) % MCV 94 (80-98) fL MCH 32 H (27-31) pg MCHC 35 (32-36) % Plt Count 314 (150-400) K/uL Neut % (Auto) 63 (36-66) % Lymph % (Auto) 26 (24-44) % [place] % (Auto) 8 H (2-6) % Eos % (Auto) 2 (2-4) % Baso % (Auto) 0 (0-1) % Sodium 142 (140-148) mmol/L Potassium 3.4 L (3.6-5.2) mmol/L Chloride 106 (100-108) mmol/L Carbon Dioxide 21 (21-32) mmol/L Anion Gap 18.4 H (5.0-14.0) mmol/L BUN 8 (7-18) mg/dL Creatinine 0.8 (0.6-1.0) mg/dL Est Cr Clr Drug Dosing 96.73 mL/min Estimated GFR (MDRD) > 60 (>60) Glucose 87 (74-106) mg/dL Lactic Acid 0.9 (0.4-2.0) mmol/L Calcium 8.0 L D (8.5-10.1) mg/dL Total Bilirubin 0.2 D (0.2-1.0) mg/dL AST 111 H D (15-37) U/L ALT 73 (12-78) U/L Alkaline Phosphatase 76 (46-116) U/L Total Protein 7.1 (6.4-8.2) g/dL Albumin 4.1 (3.4-5.0) g/dL Globulin 3.0 (2.3-3.5) g/dL Albumin/Globulin Ratio 1.4 (1.2-2.2) Lipase 978 H (73-393) U/L HCG, Qual Urine Color (YELLOW) Urine Appearance (CLEAR) Urine pH (5.0-8.0) Ur Specific [place] (1.008-1.030) Urine Protein (NEGATIVE) mg/dL Urine Glucose (UA) (NEGATIVE) mg/dL Urine Ketones (NEGATIVE) mg/dL Urine Occult Blood (NEGATIVE) Urine Nitrite (NEGATIVE) Urine Bilirubin (NEGATIVE) Urine Urobilinogen (0.2-1.0) EU/dL Ur Leukocyte Esterase (NEGATIVE) Urine RBC (0-5) Urine WBC (0-5) Ur Epithelial Cells Amorphous Sediment Urine Bacteria Urine Mucus 01/03/20 01/03/20 Range/Units 00:30 00:54 WBC (4.5-11.0) K/uL RBC (3.30-5.50) M/uL Hgb (12.0-15.0) g/dL Hct (36.0-48.0) % MCV (80-98) fL MCH (27-31) pg MCHC (32-36) % Plt Count (150-400) K/uL Neut % (Auto) (36-66) % Lymph % (Auto) (24-44) % [place] % (Auto) (2-6) % Eos % (Auto) (2-4) % Baso % (Auto) (0-1) % Sodium (140-148) mmol/L Potassium (3.6-5.2) mmol/L Chloride (100-108) mmol/L Carbon Dioxide (21-32) mmol/L Anion Gap (5.0-14.0) mmol/L BUN (7-18) mg/dL Creatinine (0.6-1.0) mg/dL Est Cr Clr Drug Dosing mL/min Estimated GFR (MDRD) (>60) Glucose (74-106) mg/dL Lactic Acid (0.4-2.0) mmol/L Calcium (8.5-10.1) mg/dL Total Bilirubin (0.2-1.0) mg/dL AST (15-37) U/L ALT (12-78) U/L Alkaline Phosphatase (46-116) U/L Total Protein (6.4-8.2) g/dL Albumin (3.4-5.0) g/dL Globulin (2.3-3.5) g/dL Albumin/Globulin Ratio (1.2-2.2) Lipase (73-393) U/L HCG, Qual Negative Urine Color Yellow (YELLOW) Urine Appearance Clear (CLEAR) Urine pH 6.0 (5.0-8.0) Ur Specific [place] 1.010 (1.008-1.030) Urine Protein Negative (NEGATIVE) mg/dL Urine Glucose (UA) Negative (NEGATIVE) mg/dL Urine Ketones Negative (NEGATIVE) mg/dL Urine Occult Blood Moderate H (NEGATIVE) Urine Nitrite Negative (NEGATIVE) Urine Bilirubin Negative (NEGATIVE) Urine Urobilinogen 0.2 (0.2-1.0) EU/dL Ur Leukocyte Esterase Negative (NEGATIVE) Urine RBC 0-5 (0-5) Urine WBC 0-5 (0-5) Ur Epithelial Cells Rare Amorphous Sediment Not seen Urine Bacteria Few Urine Mucus Not seen Result Diagrams: 01/03/20 00:30 01/03/20 00:30 Sepsis Event Note - Evaluation Sepsis Screening Result: No Definite Risk - Focused Exam Vital Signs: Vital Signs Temp Pulse Resp BP Pulse Ox 01/03/20 07:51 36.6 C 77 14 119/81 100 01/03/20 02:15 37.0 C 70 18 121/78 100 01/03/20 00:15 35.5 C L 120 H 18 149/102 H 99 01/03/20 00:13 96 C H 120 H 18 149/102 H 99 *Q Meaningful Use (ADM) - VTE Risk Assess *Q Each Risk Factor Represents 1 Point: None Total Score 1 Point Risk Factors: 0 Each Risk Factor Represents 2 Points: None Total Score 2 Point Risk Factors: 0 Each Risk Factor Represents 3 Points: None Total Score 3 Point Risk Factors: 0 Each Risk Factor Represents 5 Points: None Total Score 5 Point Risk Factors: 0 Venous Thromboembolism Risk Factor Score *Q: 0 - Problem List (1) Epigastric abdominal pain SNOMED Code(s): 85203934 ICD Code: R10.13 - EPIGASTRIC PAIN Status: Acute Current Visit: Yes (2) Hypokalemia SNOMED Code(s): 52357272 ICD Code: E87.6 - HYPOKALEMIA Status: Acute Current Visit: Yes (3) Tobacco dependence SNOMED Code(s): 30217394 ICD Code: F17.200 - NICOTINE DEPENDENCE, UNSPECIFIED, UNCOMPLICATED Status: Chronic Current Visit: No Problem List Initiated/Reviewed/Updated: Yes Orders Last 24hrs: Active Orders 24 hr Category Date Time Status Patient Status [ADT] Routine ADT 01/03/20 01:35 Active Antiembolic Devices [RC] .Routine Care 01/03/20 07:59 Ordered Height and Weight [RC] DAILY Care 01/03/20 01:35 Active Intake and Output [RC] QSHIFT Care 01/03/20 01:36 Active May Shower [RC] ASDIRECTED Care 01/03/20 01:35 Active Notify Provider Consults [RC] ASDIRECTED Care 01/03/20 07:56 Ordered Oxygen Therapy [RC] PRN Care 01/03/20 01:35 Active Peripheral IV Care [RC] . DIRECTED Care 01/03/20 00:20 Active Up ad Jo Ann [RC] ASDIRECTED Care 01/03/20 01:35 Active VTE/DVT Education [RC] Per Unit Routine Care 01/03/20 01:35 Active Vital Signs [RC] Q4H Care 01/03/20 01:35 Active Consult to Physician [CONS] Routine Cons 01/03/20 07:56 Ordered Nothing per Oral Now Diet [DIET] Diet 01/03/20 Breakfast Active CBC W/O DIFF,HEMOGRAM [HEME] Timed (1) Lab 01/04/20 05:00 Ordered COMPREHENSIVE METABOLIC PN,CMP [CHEM] Timed Lab 01/04/20 05:00 Ordered COMPREHENSIVE METABOLIC PN,CMP [CHEM] Urgent Lab 01/03/20 07:52 Ordered CORONAVIRUS COVID-19, KEYSHAWN Stat Lab 01/03/20 07:52 Ordered LIPASE [CHEM] Timed Lab 01/04/20 05:00 Ordered LIPASE [CHEM] Urgent Lab 01/03/20 07:52 Ordered Lactated Ringers [Ringers, Lactated] 1,000 ml Med 01/03/20 08:00 Ordered IV ASDIRECTED Melatonin Med 01/03/20 02:23 Active 9 mg PO BEDTIME PRN Methylphenidate HCl [Methylphenidate HCl Cd] Med 01/03/20 09:00 Pending 20 mg PO DAILY Nicotine [Habitrol] Med 01/03/20 02:30 Active 14 mg TRDERM DAILY Ondansetron [Zofran] Med 01/03/20 01:35 Active 4 mg IV Q4H PRN Potassium Chloride 20 MEQ,Lidocaine 1% 2 ML IN 100ML NS Med 01/03/20 08:00 Ordered @ 50 MLS/HR Potassium Chloride 20 meq Lidocaine 1% [Xylocaine 1%] 2 ml Sodium Chloride 0.9% [Normal Saline] 100 ml IV Q2H Sertraline [Zoloft] Med 01/03/20 09:00 Active 100 mg PO DAILY Sodium Chloride 0.9% [Saline Flush] Med 01/03/20 00:20 Active 10 ml FLUSH ASDIRECTED PRN fentaNYL [Sublimaze] Med 01/03/20 01:37 Active 50 mcg IVPUSH Q2H PRN Peripheral IV Insertion Adult [OM.PC] Urgent Oth 01/03/20 00:20 Ordered SCD [Sequential Compression Device] [OM.PC] Routine Oth 01/03/20 07:59 Ordered Resuscitation Status Routine Resus Stat 01/03/20 01:35 Ordered Medication Orders Fentanyl (Sublimaze) 50 mcg IVPUSH Q2H PRN PRN Reason: Pain (severe 7-10) Last Admin: 01/03/20 05:38 Dose: 50 mcg Documented by: [id number] Admin: 01/03/20 02:51 Dose: 50 mcg Documented by: [id number] Potassium Chloride 20 meq/Lidocaine HCl 2 ml/ Sodium Chloride 112 mls @ 50 mls/hr IV Q2H MYA Stop: 01/03/20 11:59 Lactated Ringer's (Ringers, Lactated) 1,000 mls @ 100 mls/hr IV ASDIRECTED MYA Melatonin (Melatonin) 9 mg PO BEDTIME PRN PRN Reason: Insomnia Last Admin: 01/03/20 02:51 Dose: 9 mg Documented by: [id number] Nicotine (Habitrol) 14 mg TRDERM DAILY MYA Last Admin: 01/03/20 02:51 Dose: 14 mg Documented by: [id number] Non-Formulary Medication (Methylphenidate Hcl [Methylphenidate Hcl Cd]) 20 mg PO DAILY MYA Ondansetron HCl (Zofran) 4 mg IV Q4H PRN PRN Reason: Nausea/Vomiting Last Admin: 01/03/20 05:38 Dose: 4 mg Documented by: LEIGHANN Sertraline HCl (Zoloft) 100 mg PO DAILY [facility] Sodium Chloride (Saline Flush) 10 ml FLUSH ASDIRECTED PRN PRN Reason: Keep Vein Open Last Admin: 01/03/20 00:33 Dose: 10 ml Documented by: [email or web address] Assessment/Plan Comment:: ASSESSMENT AND PLAN - Acute epigastric abdominal pain-mild elevation of lipase this does not quite sound like pancreatitis. Similar but not quite as intense episode a few weeks ago with normal CT and MRI at that time. Recent history of postprandial abdominal pain that could suggest she has gastritis or an ulcer. -Repeat LFTs and lipase -consult with Dr. Barker for EGD -symptomatic management of pain and nausea -N.p.o. status -Consider repeat imaging if pain worsens Hypokalemia-probably secondary to poor intake as well as vomiting. -40 meq IV dose this morning Tobacco dependence-patient is working on cessation -Encourage cessation -Nicotine patch Maintenance issues - - DVT prophylaxis -mechanical - GI prophylaxis -PPI - Nutrition -n.p.o. - [place] catheter -not indicated CODE STATUS -full code Admission justification -patient will be referred observation status for symptomatic management Disposition -anticipate discharge home after the hospital stay Primary care physician - Dr Lorenzo Gaona M.D. - Mortality Measure Prognosis:: Good
[2020-01-03] MEDS ORDERED: MEDROXYPROGESTERONE 150 MG SCH (09:00)
[2020-01-03] MEDS ORDERED: Sertraline 50 MG Tab PO SCH (09:00)
[2020-01-03] MEDS ORDERED: METHYLPHENIDATE HCL 20 MG PO SCH (09:00)
[2020-01-03] MEDS ORDERED: Pantoprazole 40 MG Vial IVPUSH ONE (09:00)
[2020-01-03] MEDS ORDERED: Propofol 200 MG/20 ML SDV ONE (09:19)
[2020-01-03] MEDS ORDERED: Midazolam 1 MG/ML 2 ML SDV ONE (09:19)
[2020-01-03] MEDS ORDERED: fentaNYL 100 MCG/2 ML SDV ONE (09:19)
[2020-01-03] MEDS: Potassium Chloride 20 MEQ, Lidocaine 1% 2 ML in Sodium Chloride 0.9% 100 ML IV SCH ×2 (09:59→13:02)
[2020-01-03] MEDS ORDERED: oxyCODONE 5 MG Tab PO PRN (14:41)
--- NOTE | 2020-01-03 14:42 | PCM.PN ---
- Patient Data Vitals - Most Recent: Last Vital Signs Temp 36.6 C 01/03/20 12:56 Pulse 65 01/03/20 12:56 Resp 14 01/03/20 12:56 BP 108/89 01/03/20 12:56 Pulse Ox 99 01/03/20 12:56 Weight - Most Recent: 65.317 kg I&O - Last 24 Hours: Intake & Output 01/02/20 01/03/20 01/03/20 22:59 06:59 14:59 Intake Total 832 374 Output Total 600 1200 Balance 232 -826 Lab Results Last 24 Hours: Laboratory Results - last 24 hr 01/03/20 01/03/20 01/03/20 Range/Units 00:30 00:30 00:30 WBC 8.3 (4.5-11.0) K/uL RBC 4.42 (3.30-5.50) M/uL Hgb 14.3 (12.0-15.0) g/dL Hct 41.4 (36.0-48.0) % MCV 94 (80-98) fL MCH 32 H (27-31) pg MCHC 35 (32-36) % Plt Count 314 (150-400) K/uL Neut % (Auto) 63 (36-66) % Lymph % (Auto) 26 (24-44) % [place] % (Auto) 8 H (2-6) % Eos % (Auto) 2 (2-4) % Baso % (Auto) 0 (0-1) % Sodium 142 (140-148) mmol/L Potassium 3.4 L (3.6-5.2) mmol/L Chloride 106 (100-108) mmol/L Carbon Dioxide 21 (21-32) mmol/L Anion Gap 18.4 H (5.0-14.0) mmol/L BUN 8 (7-18) mg/dL Creatinine 0.8 (0.6-1.0) mg/dL Est Cr Clr Drug Dosing 96.73 mL/min Estimated GFR (MDRD) > 60 (>60) Glucose 87 (74-106) mg/dL Lactic Acid 0.9 (0.4-2.0) mmol/L Calcium 8.0 L D (8.5-10.1) mg/dL Total Bilirubin 0.2 D (0.2-1.0) mg/dL AST 111 H D (15-37) U/L ALT 73 (12-78) U/L Alkaline Phosphatase 76 (46-116) U/L Total Protein 7.1 (6.4-8.2) g/dL Albumin 4.1 (3.4-5.0) g/dL Globulin 3.0 (2.3-3.5) g/dL Albumin/Globulin Ratio 1.4 (1.2-2.2) Lipase 978 H (73-393) U/L HCG, Qual Urine Color (YELLOW) Urine Appearance (CLEAR) Urine pH (5.0-8.0) Ur Specific [place] (1.008-1.030) Urine Protein (NEGATIVE) mg/dL Urine Glucose (UA) (NEGATIVE) mg/dL Urine Ketones (NEGATIVE) mg/dL Urine Occult Blood (NEGATIVE) Urine Nitrite (NEGATIVE) Urine Bilirubin (NEGATIVE) Urine Urobilinogen (0.2-1.0) EU/dL Ur Leukocyte Esterase (NEGATIVE) Urine RBC (0-5) Urine WBC (0-5) Ur Epithelial Cells Amorphous Sediment Urine Bacteria Urine Mucus 01/03/20 01/03/20 01/03/20 Range/Units 00:30 00:54 08:11 WBC (4.5-11.0) K/uL RBC (3.30-5.50) M/uL Hgb (12.0-15.0) g/dL Hct (36.0-48.0) % MCV (80-98) fL MCH (27-31) pg MCHC (32-36) % Plt Count (150-400) K/uL Neut % (Auto) (36-66) % Lymph % (Auto) (24-44) % [place] % (Auto) (2-6) % Eos % (Auto) (2-4) % Baso % (Auto) (0-1) % Sodium 142 (140-148) mmol/L Potassium 3.7 (3.6-5.2) mmol/L Chloride 108 (100-108) mmol/L Carbon Dioxide 23 (21-32) mmol/L Anion Gap 10.6 (5.0-14.0) mmol/L BUN 8 (7-18) mg/dL Creatinine 0.7 (0.6-1.0) mg/dL Est Cr Clr Drug Dosing 110.37 mL/min Estimated GFR (MDRD) > 60 (>60) Glucose 81 (74-106) mg/dL Lactic Acid (0.4-2.0) mmol/L Calcium 7.7 L (8.5-10.1) mg/dL Total Bilirubin 0.3 (0.2-1.0) mg/dL AST 49 H (15-37) U/L ALT 57 (12-78) U/L Alkaline Phosphatase 50 (46-116) U/L Total Protein 5.5 L (6.4-8.2) g/dL Albumin 3.1 L (3.4-5.0) g/dL Globulin 2.4 (2.3-3.5) g/dL Albumin/Globulin Ratio 1.3 (1.2-2.2) Lipase 162 (73-393) U/L HCG, Qual Negative Urine Color Yellow (YELLOW) Urine Appearance Clear (CLEAR) Urine pH 6.0 (5.0-8.0) Ur Specific [place] 1.010 (1.008-1.030) Urine Protein Negative (NEGATIVE) mg/dL Urine Glucose (UA) Negative (NEGATIVE) mg/dL Urine Ketones Negative (NEGATIVE) mg/dL Urine Occult Blood Moderate H (NEGATIVE) Urine Nitrite Negative (NEGATIVE) Urine Bilirubin Negative (NEGATIVE) Urine Urobilinogen 0.2 (0.2-1.0) EU/dL Ur Leukocyte Esterase Negative (NEGATIVE) Urine RBC 0-5 (0-5) Urine WBC 0-5 (0-5) Ur Epithelial Cells Rare Amorphous Sediment Not seen Urine Bacteria Few Urine Mucus Not seen Paulino Results Last 24 Hours: Microbiology 01/03/20 11:15 PRADIP Preparation - Final Other - Esophagus Med Orders - Current: Current Medications Fentanyl (Sublimaze) 50 mcg IVPUSH Q2H PRN PRN Reason: Pain (severe 7-10) Last Admin: 01/03/20 14:29 Dose: 50 mcg Documented by: Melatonin (Melatonin) 9 mg PO BEDTIME PRN PRN Reason: Insomnia Last Admin: 01/03/20 02:51 Dose: 9 mg Documented by: Nicotine (Habitrol) 14 mg TRDERM DAILY [facility] Last Admin: 01/03/20 08:13 Dose: 14 mg Documented by: Non-Formulary Medication (Methylphenidate Hcl [Methylphenidate Hcl Cd]) 20 mg PO DAILY [facility] Ondansetron HCl (Zofran) 4 mg IV Q4H PRN PRN Reason: Nausea/Vomiting Last Admin: 01/03/20 09:24 Dose: 4 mg Documented by: Oxycodone HCl (Oxycodone) 5 mg PO Q4H PRN PRN Reason: Pain (moderate 4-6) Sertraline HCl (Zoloft) 100 mg PO DAILY [facility] Last Admin: 01/03/20 08:13 Dose: 100 mg Documented by: Sodium Chloride (Saline Flush) 10 ml FLUSH ASDIRECTED PRN PRN Reason: Keep Vein Open Last Admin: 01/03/20 00:33 Dose: 10 ml Documented by: Discontinued Medications Fentanyl (Sublimaze) 50 mcg IVPUSH ONETIME ONE Stop: 01/03/20 00:22 Last Admin: 01/03/20 00:31 Dose: 50 mcg Documented by: Fentanyl (Sublimaze) Confirm Administered Dose 100 mcg .ROUTE .STK-MED ONE Stop: 01/03/20 09:20 Lactated Ringer's (Ringers, Lactated) 1,000 mls @ 999 mls/hr IV ASDIRECTED [facility] Last Admin: 01/03/20 00:33 Dose: 999 mls/hr Documented by: Lactated Ringer's (Ringers, Lactated) 1,000 mls @ 250 mls/hr IV ASDIRECTED [facility] Last Admin: 01/03/20 06:32 Dose: 250 mls/hr Documented by: Potassium Chloride 20 meq/Lidocaine HCl 2 ml/ Sodium Chloride 112 mls @ 56 mls/hr IV Q2H [facility] Stop: 01/03/20 13:59 Last Admin: 01/03/20 13:02 Dose: 56 mls/hr Documented by: Lactated Ringer's (Ringers, Lactated) 1,000 mls @ 100 mls/hr IV ASDIRECTED [facility] Last Admin: 01/03/20 12:47 Dose: 100 mls/hr Documented by: Midazolam HCl (Versed 1 Mg/Ml) Confirm Administered Dose 2 mg .ROUTE .STK-MED ONE Stop: 01/03/20 09:20 Non-Formulary Medication (Medroxyprogesterone [Depo-Provera]) 150 mg .XX DAILY [facility] Ondansetron HCl (Zofran) 4 mg IVPUSH ONETIME ONE Stop: 01/03/20 00:22 Last Admin: 01/03/20 00:31 Dose: 4 mg Documented by: Pantoprazole Sodium (Protonix Iv) 40 mg IVPUSH ONETIME ONE Stop: 01/03/20 09:01 Last Admin: 01/03/20 09:23 Dose: 40 mg Documented by: Propofol (Diprivan 20 Ml) Confirm Administered Dose 200 mg .ROUTE .STK-MED ONE Stop: 01/03/20 09:20 Sepsis Event Note - Evaluation Sepsis Screening Result: No Definite Risk - Focused Exam Vital Signs: Vital Signs Temp Pulse Resp BP Pulse Ox 01/03/20 12:56 36.6 C 65 14 108/89 99 01/03/20 12:26 66 14 109/78 99 01/03/20 11:56 36.6 C 68 16 117/77 100 01/03/20 11:26 36.6 C 65 16 119/88 100 01/03/20 11:11 36.5 C 79 18 129/90 99 01/03/20 11:06 75 18 119/90 100 01/03/20 11:00 71 18 109/67 99 01/03/20 10:57 71 18 104/74 99 01/03/20 10:50 36.5 C 82 18 96/59 L 99 01/03/20 07:51 36.6 C 77 14 119/81 100 - Problem List & Annotations (1) Epigastric abdominal pain SNOMED Code(s): 37179327 Code(s): R10.13 - EPIGASTRIC PAIN Status: Acute Current Visit: Yes (2) Hypokalemia SNOMED Code(s): 09426041 Code(s): E87.6 - HYPOKALEMIA Status: Acute Current Visit: Yes (3) Tobacco dependence SNOMED Code(s): 96769225 Code(s): F17.200 - NICOTINE DEPENDENCE, UNSPECIFIED, UNCOMPLICATED Status: Chronic Current Visit: No - My Orders Last 24 Hours: My Active Orders 01/03/20 07:56 Notify Provider Consults [RC] ASDIRECTED Consult to Physician [CONS] Routine 01/03/20 07:59 Antiembolic Devices [RC] .Routine SCD [Sequential Compression Device] [OM.PC] Routine 01/03/20 08:15 CORONAVIRUS COVID-19 KEYSHAWN [MOLEC] Stat 01/03/20 14:41 oxyCODONE 5 mg PO Q4H PRN Convert IV to Saline Lock [OM.PC] Routine 01/03/20 Dinner Regular Diet [DIET] 01/04/20 05:00 CBC W/O DIFF,HEMOGRAM [HEME] Timed (1) COMPREHENSIVE METABOLIC PN,CMP [CHEM] Timed LIPASE [CHEM] Timed - Plan Plan:: ASSESSMENT AND PLAN - Acute epigastric abdominal pain-mild elevation of lipase this does not quite sound like pancreatitis. Similar but not quite as intense episode a few weeks ago with normal CT and MRI at that time. Recent history of postprandial abdominal pain that could suggest she has gastritis or an ulcer. -Repeat LFTs and lipase -consult with Dr. Barker for EGD -symptomatic management of pain and nausea -N.p.o. status -Consider repeat imaging if pain worsens Hypokalemia-probably secondary to poor intake as well as vomiting. -40 meq IV dose this morning Tobacco dependence-patient is working on cessation -Encourage cessation -Nicotine patch Maintenance issues - - DVT prophylaxis -mechanical - GI prophylaxis -PPI - Nutrition -n.p.o. - [place] catheter -not indicated CODE STATUS -full code Admission justification -patient will be referred observation status for symptomatic management Disposition -anticipate discharge home after the hospital stay Primary care physician - Dr Lorenzo Gaona M.D.
--- NOTE | 2020-01-03 14:57 | OR ---
DATE OF PROCEDURE: 01/03/2020 SURGEON: Theodore Barker MD PROCEDURE: EGD. FINDINGS: 1. A white plaque-like material either consistent with food material or thrush (specimen was sent for culture). 2. Inflammation at GE junction concerning for reflux disease (biopsied using cold biopsy forceps in all 4 quadrants). COMPLICATIONS: None. AUTOMOTIVE MANAGER: None. ANESTHESIA: MAC. PREOPERATIVE DIAGNOSIS: Epigastric pain. POSTOPERATIVE DIAGNOSIS: Epigastric pain. RISKS: Risks, benefits, alternatives, and limitations including, but not limited to, infection, bleeding, and perforation were explained to the patient who wished to proceed. PROCEDURE IN DETAIL: The patient was placed in left lateral decubitus position. EGD scope was introduced and advanced atraumatically to the second part of the duodenum. No evidence of duodenitis or ulceration. Within the stomach itself, there was no evidence of gastritis or ulceration. No active or old blood. The GE junction showed inflammation consistent with reflux disease. This was biopsied in all 4 quadrants using cold biopsy forceps. Within the distal esophagus itself, there are white plaque-like lesions, which are of unknown etiology. Portions of these were taken and sent for culture. The remainder of the esophagus was normal. The patient tolerated the procedure well. Theodore Barker MD /[id number]
[2020-01-03 15:03] VITALS: BP 118/83; PULSE 56
--- NOTE | 2020-01-03 16:34 | PCM.DCSUM1 ---
Discharge Summary - Hospital Course Brief History: 24-year-old female with history of gallstone pancreatitis in her teens and recent episode of pancreatitis who presented with upper abdominal pain and nausea. She was admitted for management of epigastric abdominal pain. Diagnosis: Stroke: No - Discharge Data Discharge Date: 01/03/20 Discharge Disposition: Home, Self-Care 01 Condition: Good - Referral to Home Health Primary Care Physician: Frederick Ventura MD - Discharge Diagnosis/Problem(s) (1) Epigastric abdominal pain SNOMED Code(s): 30961534 ICD Code: R10.13 - EPIGASTRIC PAIN Status: Acute Current Visit: Yes (2) Hypokalemia SNOMED Code(s): 06373027 ICD Code: E87.6 - HYPOKALEMIA Status: Acute Current Visit: Yes (3) Tobacco dependence SNOMED Code(s): 20587357 ICD Code: F17.200 - NICOTINE DEPENDENCE, UNSPECIFIED, UNCOMPLICATED Status: Chronic Current Visit: No - Patient Summary/Data Consults: Consultations 01/03/20 07:56 Consult to Physician [CONS] Routine Consulting Provider: Theodore Barker Call Completed to Consulting Physician: Yes Reason for Consult: epigastric pain Person Notified: RW Date Notified: 01/03/20 Special Instructions: EGD this am Hospital Course: Domenica presented to the emergency room with acute onset of upper abdominal pain with nausea and vomiting. This occurred after ingesting 2 alcoholic beverages. Laboratory studies revealed a mild elevation of lipase at around 900 but were otherwise unremarkable. AST was mildly elevated. Vital signs were stable. The patient had significant pain and nausea which were not managed optimally during her emergency room stay despite aggressive interventions. She was admitted for observation and symptomatic management. By the next morning she was feeling somewhat better but still had moderate pain. We did perform an EGD which did not show any significant pathology. A small possible area of thrush was identified in the esophagus but the PRADIP preparation was unremarkable. Patient has felt well throughout the day and has tolerated a soft diet. Her pain is much better and does not require narcotic pain medications at this time. She is interested in trying to go home this evening. I do not have a definite diagnosis for her but she has had a recent CT scan as well as an MRI of the abdomen and now an EGD which have not shown any significant pathology. This seems a little bit too severe to be related to 2 alcoholic beverages unless she is in fact ingesting more than what she is telling us. Labs are all better today. Symptomatically she is better. I did encourage her to keep a food journal to see if there is some sort of irritant in her diet that could be causing her pain. She will be following up with her primary care in the next 1 or 2 weeks. - Patient Instructions Diet: Regular Diet as Tolerated Activity: As Tolerated Showering/Bathing: May Shower Notify Provider of: Fever, Increased Pain, Nausea and/or Vomiting Other/Special Instructions: 1. You were in the hospital for management of epigastric abdominal pain of unclear etiology. Your laboratory studies were unremarkable other than a mild elevation of your lipase. We did perform an EGD (camera to look down into the stomach). This test did not show any abnormal findings in your stomach. I recommend that you keep a food journal that monitors both what you eat as well as your symptoms such as abdominal pain or nausea. This may help identify foods that are causing some of your difficulties. Avoiding both tobacco and alcohol is important as both of these substances can cause irritation that may potentially lead to your pain. - Discharge Plan *PRESCRIPTION DRUG MONITORING PROGRAM REVIEWED*: Not Applicable *COPY OF PRESCRIPTION DRUG MONITORING REPORT IN PATIENT [place]: Not Applicable Prescriptions/Med Rec: Ondansetron [Zofran ODT] 4 mg PO Q6H PRN #20 tab.dis PRN Reason: Nausea Home Medications: Home Meds Methylphenidate HCl [Methylphenidate HCl Cd] 20 mg PO DAILY 01/19/17 [History] Sertraline HCl 100 mg PO DAILY 01/19/17 [History] medroxyPROGESTERone [Depo-Provera] 150 mg .XX DAILY 08/28/17 [History] Ondansetron [Zofran ODT] 4 mg PO Q6H PRN #20 tab.dis 01/03/20 [Rx] Oxygen Therapy Mode: Room Air Patient Handouts: Abdominal Pain, Adult, Ondansetron oral dissolving tablet Referrals: Frederick Ventura MD [Primary Care Provider] - 01/06/20 11:30 am (Video visit with Dr. Ventura ) - Discharge Summary/Plan Comment DC Time >30 min.: No - Patient Data Vitals - Most Recent: Last Vital Signs Temp 37.1 C 01/03/20 15:00 Pulse 56 L 01/03/20 15:00 Resp 16 01/03/20 15:00 BP 118/83 01/03/20 15:00 Pulse Ox 100 01/03/20 15:00 Weight - Most Recent: 65.317 kg I&O - Last 24 hours: Intake & Output 01/03/20 01/03/20 01/03/20 06:59 14:59 22:59 Intake Total 199 749 6076 Output Total 600 1200 Balance 232 -826 1356 Lab Results - Last 24 hrs: Laboratory Results - last 24 hr 01/03/20 01/03/20 01/03/20 Range/Units 00:30 00:30 00:30 WBC 8.3 (4.5-11.0) K/uL RBC 4.42 (3.30-5.50) M/uL Hgb 14.3 (12.0-15.0) g/dL Hct 41.4 (36.0-48.0) % MCV 94 (80-98) fL MCH 32 H (27-31) pg MCHC 35 (32-36) % Plt Count 314 (150-400) K/uL Neut % (Auto) 63 (36-66) % Lymph % (Auto) 26 (24-44) % [place] % (Auto) 8 H (2-6) % Eos % (Auto) 2 (2-4) % Baso % (Auto) 0 (0-1) % Sodium 142 (140-148) mmol/L Potassium 3.4 L (3.6-5.2) mmol/L Chloride 106 (100-108) mmol/L Carbon Dioxide 21 (21-32) mmol/L Anion Gap 18.4 H (5.0-14.0) mmol/L BUN 8 (7-18) mg/dL Creatinine 0.8 (0.6-1.0) mg/dL Est Cr Clr Drug Dosing 96.73 mL/min Estimated GFR (MDRD) > 60 (>60) Glucose 87 (74-106) mg/dL Lactic Acid 0.9 (0.4-2.0) mmol/L Calcium 8.0 L D (8.5-10.1) mg/dL Total Bilirubin 0.2 D (0.2-1.0) mg/dL AST 111 H D (15-37) U/L ALT 73 (12-78) U/L Alkaline Phosphatase 76 (46-116) U/L Total Protein 7.1 (6.4-8.2) g/dL Albumin 4.1 (3.4-5.0) g/dL Globulin 3.0 (2.3-3.5) g/dL Albumin/Globulin Ratio 1.4 (1.2-2.2) Lipase 978 H (73-393) U/L HCG, Qual Urine Color (YELLOW) Urine Appearance (CLEAR) Urine pH (5.0-8.0) Ur Specific [place] (1.008-1.030) Urine Protein (NEGATIVE) mg/dL Urine Glucose (UA) (NEGATIVE) mg/dL Urine Ketones (NEGATIVE) mg/dL Urine Occult Blood (NEGATIVE) Urine Nitrite (NEGATIVE) Urine Bilirubin (NEGATIVE) Urine Urobilinogen (0.2-1.0) EU/dL Ur Leukocyte Esterase (NEGATIVE) Urine RBC (0-5) Urine WBC (0-5) Ur Epithelial Cells Amorphous Sediment Urine Bacteria Urine Mucus 01/03/20 01/03/20 01/03/20 Range/Units 00:30 00:54 08:11 WBC (4.5-11.0) K/uL RBC (3.30-5.50) M/uL Hgb (12.0-15.0) g/dL Hct (36.0-48.0) % MCV (80-98) fL MCH (27-31) pg MCHC (32-36) % Plt Count (150-400) K/uL Neut % (Auto) (36-66) % Lymph % (Auto) (24-44) % [place] % (Auto) (2-6) % Eos % (Auto) (2-4) % Baso % (Auto) (0-1) % Sodium 142 (140-148) mmol/L Potassium 3.7 (3.6-5.2) mmol/L Chloride 108 (100-108) mmol/L Carbon Dioxide 23 (21-32) mmol/L Anion Gap 10.6 (5.0-14.0) mmol/L BUN 8 (7-18) mg/dL Creatinine 0.7 (0.6-1.0) mg/dL Est Cr Clr Drug Dosing 110.37 mL/min Estimated GFR (MDRD) > 60 (>60) Glucose 81 (74-106) mg/dL Lactic Acid (0.4-2.0) mmol/L Calcium 7.7 L (8.5-10.1) mg/dL Total Bilirubin 0.3 (0.2-1.0) mg/dL AST 49 H (15-37) U/L ALT 57 (12-78) U/L Alkaline Phosphatase 50 (46-116) U/L Total Protein 5.5 L (6.4-8.2) g/dL Albumin 3.1 L (3.4-5.0) g/dL Globulin 2.4 (2.3-3.5) g/dL Albumin/Globulin Ratio 1.3 (1.2-2.2) Lipase 162 (73-393) U/L HCG, Qual Negative Urine Color Yellow (YELLOW) Urine Appearance Clear (CLEAR) Urine pH 6.0 (5.0-8.0) Ur Specific [place] 1.010 (1.008-1.030) Urine Protein Negative (NEGATIVE) mg/dL Urine Glucose (UA) Negative (NEGATIVE) mg/dL Urine Ketones Negative (NEGATIVE) mg/dL Urine Occult Blood Moderate H (NEGATIVE) Urine Nitrite Negative (NEGATIVE) Urine Bilirubin Negative (NEGATIVE) Urine Urobilinogen 0.2 (0.2-1.0) EU/dL Ur Leukocyte Esterase Negative (NEGATIVE) Urine RBC 0-5 (0-5) Urine WBC 0-5 (0-5) Ur Epithelial Cells Rare Amorphous Sediment Not seen Urine Bacteria Few Urine Mucus Not seen ARAVIND Results - Last 24 hrs: Microbiology 01/03/20 11:15 PRADIP Preparation - Final Other - Esophagus Med Orders - Current: Current Medications Fentanyl (Sublimaze) 50 mcg IVPUSH Q2H PRN PRN Reason: Pain (severe 7-10) Last Admin: 01/03/20 14:29 Dose: 50 mcg Documented by: Melatonin (Melatonin) 9 mg PO BEDTIME PRN PRN Reason: Insomnia Last Admin: 01/03/20 02:51 Dose: 9 mg Documented by: Nicotine (Habitrol) 14 mg TRDERM DAILY [facility] Last Admin: 01/03/20 08:13 Dose: 14 mg Documented by: Non-Formulary Medication (Methylphenidate Hcl [Methylphenidate Hcl Cd]) 20 mg PO DAILY [facility] Ondansetron HCl (Zofran) 4 mg IV Q4H PRN PRN Reason: Nausea/Vomiting Last Admin: 01/03/20 09:24 Dose: 4 mg Documented by: Oxycodone HCl (Oxycodone) 5 mg PO Q4H PRN PRN Reason: Pain (moderate 4-6) Sertraline HCl (Zoloft) 100 mg PO DAILY [facility] Last Admin: 01/03/20 08:13 Dose: 100 mg Documented by: Sodium Chloride (Saline Flush) 10 ml FLUSH ASDIRECTED PRN PRN Reason: Keep Vein Open Last Admin: 01/03/20 00:33 Dose: 10 ml Documented by: Discontinued Medications Fentanyl (Sublimaze) 50 mcg IVPUSH ONETIME ONE Stop: 01/03/20 00:22 Last Admin: 01/03/20 00:31 Dose: 50 mcg Documented by: Fentanyl (Sublimaze) Confirm Administered Dose 100 mcg .ROUTE .STK-MED ONE Stop: 01/03/20 09:20 Lactated Ringer's (Ringers, Lactated) 1,000 mls @ 999 mls/hr IV ASDIRECTED [facility] Last Admin: 01/03/20 00:33 Dose: 999 mls/hr Documented by: Lactated Ringer's (Ringers, Lactated) 1,000 mls @ 250 mls/hr IV ASDIRECTED [facility] Last Admin: 01/03/20 06:32 Dose: 250 mls/hr Documented by: Potassium Chloride 20 meq/Lidocaine HCl 2 ml/ Sodium Chloride 112 mls @ 56 mls/hr IV Q2H [facility] Stop: 01/03/20 13:59 Last Admin: 01/03/20 13:02 Dose: 56 mls/hr Documented by: Lactated Ringer's (Ringers, Lactated) 1,000 mls @ 100 mls/hr IV ASDIRECTED [facility] Last Admin: 01/03/20 12:47 Dose: 100 mls/hr Documented by: Midazolam HCl (Versed 1 Mg/Ml) Confirm Administered Dose 2 mg .ROUTE .STK-MED ONE Stop: 01/03/20 09:20 Non-Formulary Medication (Medroxyprogesterone [Depo-Provera]) 150 mg .XX DAILY [facility] Ondansetron HCl (Zofran) 4 mg IVPUSH ONETIME ONE Stop: 11/16/20 00:22 Last Admin: 01/03/20 00:31 Dose: 4 mg Documented by: Pantoprazole Sodium (Protonix Iv) 40 mg IVPUSH ONETIME ONE Stop: 01/03/20 09:01 Last Admin: 01/03/20 09:23 Dose: 40 mg Documented by: Propofol (Diprivan 20 Ml) Confirm Administered Dose 200 mg .ROUTE .STK-MED ONE Stop: 01/03/20 09:20
== END 2020-01-03 17:36 | disposition home or self-care (01) ==
LOC: JP.ED 23:22 → JP.MS 01-03 01:35
PROVIDERS: ADMIT Internal Medicine; ATTEND Internal Medicine
DX: K31.89 Other diseases of stomach and duodenum (principal); F41.9 Anxiety disorder, unspecified; F32.9 Major depressive disorder, single episode, unspecified; F17.210 Nicotine dependence, cigarettes, uncomplicated; E87.6 Hypokalemia; Z88.2 Allergy status to sulfonamides; Z88.8 Allergy status to other drugs, medicaments and biological substances; Z79.899 Other long term (current) drug therapy; Z90.49 Acquired absence of other specified parts of digestive tract; Z01.812 Encounter for preprocedural laboratory examination; Z20.828 Contact with and (suspected) exposure to other viral communicable diseases
CPT/HCPCS: 36415; 43239; 80053; 81001; 83605; 83690; 84703; 85025; 87220; 87635; 88305; 88312; 96365; 96366; 96375; 96376; 99284; A9270; C9113; G0378; J2001; J2250; J2405; J2704; J3010; J3480; J7120; 96374; U0002

== ENCOUNTER 2020-02-20 22:30 | Emergency (ER) | payer OTHER ==
[2020-02-20] MEDS ORDERED: Ondansetron 4 MG/2 ML SDV IVPUSH ONE (23:09)
[2020-02-20] MEDS ORDERED: HYDROmorphone 0.5 MG/0.5 ML Syringe IVPUSH ONE (23:09)
[2020-02-20] MEDS ORDERED: Sodium Chloride 0.9% 10 ML Syringe FLUSH PRN (23:09)
[2020-02-20] MEDS ORDERED: Sodium Chloride 0.9% 1,000 ML IV ONE (23:10)
[2020-02-21] MEDS ORDERED: HYDROmorphone 0.5 MG/0.5 ML Syringe IVPUSH ONE (00:02)
[2020-02-21] MEDS ORDERED: LORazepam 2 MG/ML SDV IVPUSH ONE (00:11)
[2020-02-21] MEDS ORDERED: Sodium Chloride 0.9% 100 ML IV STA (00:28)
[2020-02-21] MEDS ORDERED: Iopamidol 612 MG/ML 100 ML Bottle IV STA (00:28)
[2020-02-21] MEDS ORDERED: Simethicone 80 MG Tab.Chew PO ONE (00:56)
[2020-02-21] MEDS ORDERED: Dicyclomine 10 MG Cap PO ONE (00:56)
--- NOTE | 2020-02-21 00:56 | EDM.PDOC ---
ED HPI GENERAL MEDICAL PROBLEM - General Chief Complaint: Abdominal Pain Stated Complaint: ABD PAIN Time Seen by Provider: 02/20/20 23:04 Source of Information: Reports: Patient, Old Records History Limitations: Reports: No Limitations - History of Present Illness INITIAL COMMENTS - FREE TEXT/NARRATIVE: Domenica is a 24-year-old female presenting to the ED for evaluation of markedly increasing epigastric pain. The patient has a history significant for recurrent pancreatitis as well as gastroesophageal reflux with esophagitis. She recently underwent an endoscopy on 01/03/[address] Barker demonstrating inflammation at the GE junction concerning for reflux disease. It also appeared that she had some plaque-like white material consistent with either food material or thrush in the distal esophagus. During that time she was admitted to the hospital for management of her epigastric abdominal pain and hypokalemia. The patient was seen in the ED after having acute onset of upper abdominal pain with nausea and vomiting that occurred after ingesting 2 alcoholic beverages. She had mild elevation of her lipase at around 900 and mild elevation of her AST with very significant pain and nausea they were not able to be managed in the emergency room despite aggressive interventions and it was decided to admit her for further evaluation including an MRI of the abdomen and EGD. During her hospital course, the patient started to improve and she was encouraged to keep a food journal to see if there was any specific irritants causing her pain. N Upper Abdomen Pain Score (Numeric/FACES): 7 - Related Data Allergies Allergy/AdvReac Type Severity Reaction Status Date / Time Sulfa (Sulfonamide Allergy Intermediate Rash Verified 02/20/20 22:50 Antibiotics) lanolin alcohols Allergy Hives Verified 02/20/20 22:50 Home Meds: Home Meds Methylphenidate HCl [Methylphenidate HCl Cd] 20 mg PO DAILY PRN 01/19/17 [History] Sertraline HCl 100 mg PO DAILY 01/19/17 [History] medroxyPROGESTERone [Depo-Provera] 150 mg .XX DAILY 08/28/17 [History] Methylphenidate [Ritalin] 10 mg PO DAILY 02/20/20 [History] Pantoprazole Sodium [Protonix] 40 mg PO DAILY 30 Days #30 tablet. 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 left foot FX Neurological History: Reports: Migraines Psychiatric History: Reports: ADHD, Anxiety, Depression Hematologic History: Reports: None Immunologic History: Reports: None Oncologic (Cancer) History: Reports: None Dermatologic History: Reports: Eczema Other Dermatologic History: eczema - Infectious Disease History Infectious Disease History: Reports: None - Past Surgical History Head Surgeries/Procedures: Reports: None HEENT Surgical History: Reports: Oral Surgery Other HEENT Surgeries/Procedures: wisdom teeth out on Jan 02, 2017 Cardiovascular Surgical History: Reports: None GI Surgical History: Reports: Cholecystectomy, Colonoscopy, EGD Female Surgical History: Reports: Section Neurological Surgical History: Reports: None Social & Family History - Family History Family Medical History: No Pertinent Family History - Tobacco Use Tobacco Use Status *Q: Current Every Day Tobacco User Years of Tobacco use: 10 Packs/Tins Daily: 0.5 Used Tobacco, but Quit: No Second Hand Smoke Exposure: No - Caffeine Use Caffeine Use: Reports: Coffee - Alcohol Use Days Per Week of Alcohol Use: 4 Number of Drinks Per Day: 4 Total Drinks Per Week: 16 - Recreational Drug Use Recreational Drug Use: No ED ROS GENERAL - Review of Systems Review Of Systems: See Below Constitutional: Reports: Decreased Appetite HEENT: Reports: No Symptoms Respiratory: Reports: No Symptoms Cardiovascular: Reports: No Symptoms Endocrine: Reports: No Symptoms GI/Abdominal: Reports: Abdominal Pain, Anorexia, Diarrhea, Decreased Appetite, Nausea. Denies: Vomiting : Reports: No Symptoms Musculoskeletal: Reports: No Symptoms Skin: Reports: No Symptoms Neurological: Reports: No Symptoms Psychiatric: Reports: Agitation, Anxiety Hematologic/Lymphatic: Reports: No Symptoms Immunologic: Reports: No Symptoms ED EXAM, GI/ABD - Physical Exam Exam: See Below Exam Limited By: No Limitations General Appearance: Anxious, Severe Distress (Patient writhing around on the bed trying to get comfortable.), Thin Throat/Mouth: Normal Inspection, Normal Teeth, Normal Gums, Normal Oropharynx, Normal Voice, No Airway Compromise, Other (Chemosis on the left lip crease) Head: Atraumatic, Normocephalic Neck: Normal Inspection, Supple, Non-Tender, Full Range of Motion Respiratory/Chest: Lungs Clear, Normal Breath Sounds, Chest Non-Tender, Other (Hyperventilating due to anxiety and pain.) Cardiovascular: Normal Peripheral Pulses, Regular Rate, Rhythm, No Edema, No Gallop, No JVD, No Murmur, No Rub GI/Abdominal Exam: Soft, No Organomegaly, No Distention, No Abnormal Bruit, No Mass, Pelvis Stable, Guarding, Tender (Tenderness primarily in the epigastric region), Abnormal Bowel Sounds (Diminished bowel sounds with occasional tinkles and rushes.), Other (Tympany to percussion across the upper abdomen.). No: Rigid, Rebound Back Exam: Normal Inspection, Full Range of Motion Extremities: Normal Inspection, Normal Range of Motion, Non-Tender, Normal Capillary Refill, No Pedal Edema Neurological: Alert, Oriented, Normal Cognition, No Motor/Sensory Deficits Psychiatric: Anxious, Tearful Skin Exam: Warm, Dry, Intact, Normal Color, No Rash Lymphatic: No Adenopathy Course - Vital Signs Last Recorded V/S: Last Vital Signs Temp 35.9 C L 02/20/20 23:16 Pulse 120 H 02/20/20 23:16 Resp 12 02/20/20 23:16 BP 124/90 02/20/20 23:16 Pulse Ox 98 02/20/20 23:16 - Orders/Labs/Meds Orders: Active Orders 24 hr Category Date Time Status Pantoprazole [ProTONIX] Med 02/21/20 02:00 Ordered 40 mg PO DAILY Sodium Chloride 0.9% [Saline Flush] Med 02/20/20 23:09 Active 10 ml FLUSH ASDIRECTED PRN Saline Lock Insert [OM.PC] Routine Oth 02/20/20 23:09 Ordered Medication Orders Pantoprazole Sodium (Protonix) 40 mg PO DAILY MYA Sodium Chloride (Saline Flush) 10 ml FLUSH ASDIRECTED PRN PRN Reason: Keep Vein Open Labs: Laboratory Tests 02/20/20 02/20/20 02/21/20 Range/Units 23:15 23:15 00:06 WBC 7.3 (4.5-11.0) K/uL RBC 4.70 (3.30-5.50) M/uL Hgb 14.8 (12.0-15.0) g/dL Hct 42.7 (36.0-48.0) % MCV 91 (80-98) fL MCH 32 H (27-31) pg MCHC 35 (32-36) % Plt Count 362 (150-400) K/uL Neut % (Auto) 65 (36-66) % Lymph % (Auto) 27 (24-44) % [place] % (Auto) 6 (2-6) % Eos % (Auto) 2 (2-4) % Baso % (Auto) 0 (0-1) % Sodium 139 L (140-148) mmol/L Potassium 3.7 (3.6-5.2) mmol/L Chloride 105 (100-108) mmol/L Carbon Dioxide 23 (21-32) mmol/L Anion Gap 14.7 H (5.0-14.0) mmol/L BUN 8 (7-18) mg/dL Creatinine 0.8 (0.6-1.0) mg/dL Est Cr Clr Drug Dosing 92.83 mL/min Estimated GFR (MDRD) > 60 (>60) Glucose 99 (74-106) mg/dL Calcium 8.6 (8.5-10.1) mg/dL Total Bilirubin 0.2 (0.2-1.0) mg/dL AST 22 (15-37) U/L ALT 28 (12-78) U/L Alkaline Phosphatase 62 (46-116) U/L C-Reactive Protein < 0.05 (0.0-0.3) mg/dL Total Protein 7.3 (6.4-8.2) g/dL Albumin 4.1 (3.4-5.0) g/dL Globulin 3.2 (2.3-3.5) g/dL Albumin/Globulin Ratio 1.3 (1.2-2.2) Lipase 108 (73-393) U/L Urine Color Yellow (YELLOW) Urine Appearance Clear (CLEAR) Urine pH 7.0 (5.0-8.0) Ur Specific [place] 1.010 (1.008-1.030) Urine Protein Negative (NEGATIVE) mg/dL Urine Glucose (UA) Negative (NEGATIVE) mg/dL Urine Ketones Negative (NEGATIVE) mg/dL Urine Occult Blood Small H (NEGATIVE) Urine Nitrite Negative (NEGATIVE) Urine Bilirubin Negative (NEGATIVE) Urine Urobilinogen 0.2 (0.2-1.0) EU/dL Ur Leukocyte Esterase Negative (NEGATIVE) Urine RBC 0-5 (0-5) Urine WBC 0-5 (0-5) Ur Epithelial Cells Rare Amorphous Sediment Few Urine Bacteria Few Urine Mucus Not seen Urine HCG, Qual 02/21/20 Range/Units 00:06 WBC (4.5-11.0) K/uL RBC (3.30-5.50) M/uL Hgb (12.0-15.0) g/dL Hct (36.0-48.0) % MCV (80-98) fL MCH (27-31) pg MCHC (32-36) % Plt Count (150-400) K/uL Neut % (Auto) (36-66) % Lymph % (Auto) (24-44) % [place] % (Auto) (2-6) % Eos % (Auto) (2-4) % Baso % (Auto) (0-1) % Sodium (140-148) mmol/L Potassium (3.6-5.2) mmol/L Chloride (100-108) mmol/L Carbon Dioxide (21-32) mmol/L Anion Gap (5.0-14.0) mmol/L BUN (7-18) mg/dL Creatinine (0.6-1.0) mg/dL Est Cr Clr Drug Dosing mL/min Estimated GFR (MDRD) (>60) Glucose (74-106) mg/dL Calcium (8.5-10.1) mg/dL Total Bilirubin (0.2-1.0) mg/dL AST (15-37) U/L ALT (12-78) U/L Alkaline Phosphatase (46-116) U/L C-Reactive Protein (0.0-0.3) mg/dL Total Protein (6.4-8.2) g/dL Albumin (3.4-5.0) g/dL Globulin (2.3-3.5) g/dL Albumin/Globulin Ratio (1.2-2.2) Lipase (73-393) U/L Urine Color (YELLOW) Urine Appearance (CLEAR) Urine pH (5.0-8.0) Ur Specific [place] (1.008-1.030) Urine Protein (NEGATIVE) mg/dL Urine Glucose (UA) (NEGATIVE) mg/dL Urine Ketones (NEGATIVE) mg/dL Urine Occult Blood (NEGATIVE) Urine Nitrite (NEGATIVE) Urine Bilirubin (NEGATIVE) Urine Urobilinogen (0.2-1.0) EU/dL Ur Leukocyte Esterase (NEGATIVE) Urine RBC (0-5) Urine WBC (0-5) Ur Epithelial Cells Amorphous Sediment Urine Bacteria Urine Mucus Urine HCG, Qual Negative Meds: Medications Generic Name Dose Route Start Last Admin Trade Name Freheidi PRN Reason Stop Dose Admin Pantoprazole Sodium 40 mg 02/21/20 02:00 Protonix PO DAILY MYA Sodium Chloride 10 ml 02/20/20 23:09 Saline Flush FLUSH ASDIRECTED PRN Keep Vein Open Discontinued Medications Generic Name Dose Route Start Last Admin Trade Name Yelena PRN Reason Stop Dose Admin Al Hydroxide/Mg Hydroxide 15 0 ml 02/21/20 01:19 02/21/20 01:29 ml/ Lidocaine HCl 15 ml PO 02/21/20 01:20 30 ml ONETIME ONE Administration Dicyclomine HCl 10 mg 02/21/20 00:56 02/21/20 01:22 Bentyl PO 02/21/20 00:57 10 mg ONETIME ONE Administration Hydromorphone HCl 0.5 mg 02/20/20 23:09 02/20/20 23:44 Dilaudid IVPUSH 02/20/20 23:10 0.5 mg ONETIME ONE Administration Hydromorphone HCl 0.5 mg 02/21/20 00:02 02/21/20 00:09 Dilaudid IVPUSH 02/21/20 00:03 0.5 mg ONETIME ONE Administration Sodium Chloride 1,000 mls @ 999 mls/hr 02/20/20 23:10 02/20/20 23:42 Normal Saline IV 02/21/20 00:10 999 mls/hr .BOLUS ONE Administration Sodium Chloride 100 mls @ 3 mls/sec 02/21/20 00:28 02/21/20 00:38 Normal Saline IV 02/21/20 00:29 3 mls/sec ASDIRECTED STA Administration Iopamidol 100 ml 02/21/20 00:28 02/21/20 00:38 Isovue-300 (61%) IV 02/21/20 00:29 100 ml . DIRECTED STA Administration Lorazepam 1 mg 02/21/20 00:11 02/21/20 00:21 Ativan IVPUSH 02/21/20 00:12 1 mg ONETIME ONE Administration Metoclopramide HCl 10 mg 02/21/20 01:50 Reglan PO 02/21/20 01:51 ONETIME ONE Ondansetron HCl 4 mg 02/20/20 23:09 02/20/20 23:43 Zofran IVPUSH 02/20/20 23:10 4 mg ONETIME ONE Administration Simethicone 80 mg 02/21/20 00:56 02/21/20 01:22 Simethicone PO 02/21/20 00:57 80 mg ONETIME ONE Administration Sucralfate 1 gm 02/21/20 01:50 Carafate PO 02/21/20 01:51 ONETIME ONE - Re-Assessments/Exams Free Text/Narrative Re-Assessment/Exam: 02/21/20 01:17 I reviewed the patient's CT of the abdomen and pelvis with contrast demonstrating 5 mm nodule in the right anterior lower lobe likely a calcified granuloma with a punctate granuloma seen in the right medial costophrenic sulcus. The liver, spleen, and pancreas are unremarkable. Gallbladder is been surgically removed there is no significant intra or extrahepatic biliary duct dilatation. Kidneys are unremarkable without stones. Adrenals are unremarkable. There is mild wall thickening at the cecum with a normal appendix. Vasculature is normal. There is no significant lymphadenopathy. Perineum is otherwise unremarkable in the pelvis and soft tissues are unremarkable bones are unremarkable for age. Impression is that there is mild inflammatory thickening of the cecum which is possibly due to either infectious colitis or inflammatory bowel disease. I will discuss with the patient if there is any family history of ulcerative colitis or Crohn's disease. Her inflammatory markers are normal as is her white blood cell count so I am not sure if this is just due to her anatomy or if there is actually pathology going on. The patient is not having right lower quadrant abdominal pain but rather epigastric pain. We will try a GI cocktail to see if this is esophagitis. 02/21/20 01:57 the patient did have some improvement in her epigastric and lower chest pain with the GI cocktail. I feel that her epigastric symptoms are most likely related to gastroesophageal reflux and acute esophagitis. During her endoscopy on 01/03/2020 there was a question of whether she may have had thrush in her esophagus raising the concern that she may have eosinophilic esophagitis versus erosive esophagitis. I believe at this time a trial of Protonix replacing the omeprazole at 40 mg daily as well as Carafate 1 g 15 minutes before meals and 15 minutes before bed would be worthwhile to see if we can try to heal the stomach and esophagus. She will likely have to have a repeat endoscopy or at a minimum of follow-up with Dr. Barker to further address these issues. At this time there is no compelling need to admit the patient to the hospital. The patient is in agreement with the plan but does express frustration that nothing is really made her feel better for the last 13 years since she has had the onset of the symptoms. I am prescribing Reglan 10 mg every 8 hours as needed for nausea and vomiting which she may take in place of the Zofran which she states is not always work. We do need to be judicious in the use of the Reglan as it may interact with her sertraline so I am only giving her a prescription for 10 tablets with instructions to follow-up with her primary care provider, Dr. Ventura if she feels that this has been beneficial. Although the CT of the abdomen and pelvis with contrast showed mild inflammation of the cecum, the patient is completely asymptomatic even with deep palpation over this area and this is likely a red pathak. Departure - Departure Time of Disposition: 02:07 Disposition: Home, Self-Care 01 Condition: Good Clinical Impression: Gastroesophageal reflux disease with esophagitis without hemorrhage, HAIR (generalized anxiety disorder) Acute gastritis without bleeding Qualifiers: Gastritis type: unspecified gastritis Qualified Code(s): K29.00 - Acute gastritis without bleeding - Discharge Information *PRESCRIPTION DRUG MONITORING PROGRAM REVIEWED*: Not Applicable *COPY OF PRESCRIPTION DRUG MONITORING REPORT IN PATIENT [place]: Not Applicable Prescriptions: Sucralfate [Carafate] 1 gm PO QIDACANDBED 30 Days #120 tablet Pantoprazole Sodium [Protonix] 40 mg PO DAILY 30 Days #30 tablet. Instructions: Gastritis, Adult, [id number], Heartburn, [id number] Referrals: Frederick Ventura MD [Primary Care Provider] - Forms: ED Department Discharge Care Plan Goals: My plan is to have you stop the omeprazole and we are starting you on a much stronger medicine called Protonix 40 mg daily for the next 30 days. In addition we are starting you on Carafate 1 tablet 15 minutes before meals and 15 minutes before bedtime. This medicine helps absorb the extra acid that your stomach makes and coats the stomach and esophagus to allow for healing. I would be very careful of any spicy foods or alcohol use during this time as these can erode a way the protective layer of mucus and cause further damage to the esophagus and stomach. I would like you to follow-up with your primary care provider, Dr. Ventura in 2 weeks to make sure that we are progressing in the right direction. I have given you a small prescription of Reglan which you can use instead of the Zofran for nausea and vomiting. If this seems to be successful I would talk to Dr. Ventura about the possibility of extending this out, although we have to be careful with the use of your sertraline for your anxiety and depression as a can sometimes interact. I suspect that she will continue to want to see Dr. Barker for further evaluation and care. My hope is that this care plan will help heal your esophagus and stomach, improve your life and eliminate your continued problems with that your stomach. Sepsis Event Note (ED) - Evaluation Sepsis Screening Result: No Definite Risk - Focused Exam Vital Signs: Vital Signs Temp Pulse Resp BP Pulse Ox 02/20/20 23:16 35.9 C L 120 H 12 124/90 98 02/20/20 22:47 35.9 C L 120 H 12 124/90 98 - Problem List & Annotations (1) HAIR (generalized anxiety disorder) SNOMED Code(s): 41968197 Code(s): F41.1 - GENERALIZED ANXIETY DISORDER Status: Chronic Priority: High Current Visit: Yes (2) Acute gastritis without bleeding SNOMED Code(s): 39830921, 72550343 Code(s): K29.00 - ACUTE GASTRITIS WITHOUT BLEEDING Status: Acute Priority: High Current Visit: Yes Qualifiers: Gastritis type: unspecified gastritis Qualified Code(s): K29.00 - Acute gastritis without bleeding (3) Gastroesophageal reflux disease with esophagitis without hemorrhage SNOMED Code(s): 947440651 Code(s): K21.00 - GASTRO-ESOPHAGEAL REFLUX DIS WITH ESOPHAGITIS, WITHOUT BLEED Status: Acute Priority: High Current Visit: Yes - Problem List Review Problem List Initiated/Reviewed/Updated: Yes - My Orders Last 24 Hours: My Active Orders 02/20/20 23:09 Sodium Chloride 0.9% [Saline Flush] 10 ml FLUSH ASDIRECTED PRN Saline Lock Insert [OM.PC] Routine 02/21/20 02:00 Pantoprazole [ProTONIX] 40 mg PO DAILY - Assessment/Plan Last 24 Hours: My Active Orders 02/20/20 23:09 Sodium Chloride 0.9% [Saline Flush] 10 ml FLUSH ASDIRECTED PRN Saline Lock Insert [OM.PC] Routine 02/21/20 02:00 Pantoprazole [ProTONIX] 40 mg PO DAILY
--- NOTE | 2020-02-21 01:07 | CRLCT ---
INDICATION: Chronic epigastric pain TECHNIQUE: CT Abdomen and pelvis with i.v. contrast. Coronal and sagittal reformats were obtained. CONTRAST: 100 mL Isovue 300 COMPARISON: 12/09/2019 FINDINGS: Lower chest: There is a 5 mm nodule in the anterior right lower lobe on image 4, likely a calcified granuloma given its density for size. A punctate granuloma seen in the medial right costophrenic sulcus. Liver: Unremarkable. Spleen: Unremarkable. Pancreas: Unremarkable. Gallbladder: Previous cholecystectomy noted without significant intra- or extrahepatic biliary ductal dilatation seen. Kidney: Unremarkable. No kidney or ureteral stones or obstruction seen. Adrenal: Unremarkable. Bowel: Mild wall thickening of the cecum is noted. The stomach is collapsed and difficult to evaluate. The appendix is normal in appearance and size. Vascular: Unremarkable. Lymph: Unremarkable. Peritoneum: Unremarkable. No pneumoperitoneum is seen. No significant ascites is noted. Pelvis: Unremarkable. Soft tissue: Unremarkable. Bone: Unremarkable for age. IMPRESSION: 1. Mild wall thickening of the cecum is noted. Findings may be due to infectious colitis or inflammatory bowel disease. Dictated by Harvinder Rodriguez MD @ 02/21/2020 1:05:25 AM Please note that all CT scans at this facility use dose modulation, iterative reconstruction, and/or weight-based dosing when appropriate to reduce radiation dose to as low as reasonably achievable. Dictated by: Harvinder Rodriguez MD @ 02/21/2020 01:05:33 (Electronically Signed)
[2020-02-21] MEDS ORDERED: Alum Hydrox/Mag Hydrox/Simeth 15 ML, Lidocaine 2% 15 ML PO ONE ×2 (01:19)
[2020-02-21] MEDS ORDERED: Sucralfate 1 GM Tab PO ONE (01:50)
[2020-02-21] MEDS ORDERED: Metoclopramide 10 MG Tab PO ONE (01:50)
[2020-02-21] MEDS ORDERED: Pantoprazole 40 MG Tab.CR PO SCH (02:00)
[2020-02-21 02:42] VITALS: BP 120/88; PULSE 112
== END 2020-02-21 02:30 | disposition home or self-care (01) ==
LOC: JP.ED 22:30
DX: K21.00 Gastro-esophageal reflux disease with esophagitis, without bleeding (principal); K29.00 Acute gastritis without bleeding; F41.1 Generalized anxiety disorder; F32.9 Major depressive disorder, single episode, unspecified; F90.9 Attention-deficit hyperactivity disorder, unspecified type; F17.210 Nicotine dependence, cigarettes, uncomplicated; Z88.2 Allergy status to sulfonamides; Z91.048 Other nonmedicinal substance allergy status; Z79.899 Other long term (current) drug therapy
CPT/HCPCS: 36415; 74177; 80053; 81001; 81025; 83690; 85025; 86140; 96374; 96375; 99284; A9270; J1170; J2060; J2405; J7030; Q9967; 99283

== ENCOUNTER 2020-02-29 19:05 | Inpatient (IN) | payer OTHER ==
[2020-02-29] MEDS ORDERED: LORazepam 2 MG/ML SDV IVPUSH ONE (19:39)
[2020-02-29] MEDS ORDERED: Ondansetron 4 MG/2 ML SDV IVPUSH ONE (19:46)
--- NOTE | 2020-02-29 19:55 | EDM.PDOC ---
ED HPI GENERAL MEDICAL PROBLEM - General Chief Complaint: Abdominal Pain Stated Complaint: STOMACH PAIN Time Seen by Provider: 02/29/20 19:43 Source of Information: Reports: Patient, Old Records, RN History Limitations: Reports: No Limitations - History of Present Illness INITIAL COMMENTS - FREE TEXT/NARRATIVE: 24 yo female presents with epigastric pain. She was seen for a similar issue about 8 days ago here in the ER and her work up showed likely gastritis. At that time her omeprazole was stopped and Protonix given instead and she was given Carafate to take qid before meals and at bedtime. She does have a pHx of pancreatitis and admits to a couple alcoholic drinks/day with dinner. Does have nausea without vomiting. Stools are loose without bleeding. This issue has been present with waxing and waning or yrs. Seems worse with eating more. Pain almost goes away if she doesn't eat. Her pancreatitis was at age 13 from an issue with her gallbladder that she had out then. Had endoscopy fairly recently, but has not had colonoscopy. When she was last here was supposed to see her primary and then get a referral to [facility], but she couldn't get an appt until early . Has been able to maintain her weight. Alcohol also seems to make her sx's worse. Has not noticed improvement with the switch to Protonix and the addition of Carafate. Onset: Unknown/Unsure Duration: Chronic, Waxing/Waning (worse today again. ) Location: Reports: Abdomen Quality: Reports: Ache Severity: Moderate Improves with: Reports: None Worsens with: Reports: Eating (and ETOH) Context: Reports: Other (See HPI) Associated Symptoms: Reports: Nausea/Vomiting (no recent vomiting). 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: Other (see below) (usual meds) left upper abd Pain Score (Numeric/FACES): 7 - Related Data Allergies Allergy/AdvReac Type Severity Reaction Status Date / Time Sulfa (Sulfonamide Allergy Intermediate Rash Verified 02/29/20 19:21 Antibiotics) lanolin alcohols Allergy Hives Verified 02/29/20 19:21 Home Meds: Home Meds Methylphenidate HCl [Methylphenidate HCl Cd] 20 mg PO DAILY 01/19/17 [History] Sertraline HCl 100 mg PO DAILY 01/19/17 [History] medroxyPROGESTERone [Depo-Provera] 150 mg IM ASDIRECTED 08/28/17 [History] Methylphenidate [Ritalin] 10 mg PO DAILY 02/20/20 [History] Pantoprazole Sodium [Protonix] 40 mg PO DAILY 30 Days #30 tablet. 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 left foot FX Neurological History: Reports: Migraines Psychiatric History: Reports: ADHD, Anxiety, Depression Hematologic History: Reports: None Immunologic History: Reports: None Oncologic (Cancer) History: Reports: None Dermatologic History: Reports: Eczema Other Dermatologic History: eczema - Infectious Disease History Infectious Disease History: Reports: None - Past Surgical History Head Surgeries/Procedures: Reports: None HEENT Surgical History: Reports: Oral Surgery Other HEENT Surgeries/Procedures: wisdom teeth out on Jan 02, 2017 Cardiovascular Surgical History: Reports: None GI Surgical History: Reports: Cholecystectomy, Colonoscopy, EGD Female Surgical History: Reports: Section Neurological Surgical History: Reports: None Social & Family History - Family History Family Medical History: No Pertinent Family History - Tobacco Use Tobacco Use Status *Q: Current Every Day Tobacco User Years of Tobacco use: 10 Packs/Tins Daily: 0.2 - Caffeine Use Caffeine Use: Reports: Coffee, Soda - Recreational Drug Use Recreational Drug Use: No ED ROS GENERAL - Review of Systems Review Of Systems: See Below Constitutional: Reports: No Symptoms HEENT: Reports: No Symptoms Respiratory: Reports: No Symptoms Cardiovascular: Reports: No Symptoms GI/Abdominal: Reports: Abdominal Pain, Diarrhea, Nausea. Denies: Black Stool, Bloody Stool, Constipation, Distension, Hematemesis, Hematochezia, Melena, Vomiting : Reports: No Symptoms Musculoskeletal: Reports: No Symptoms Skin: Reports: No Symptoms Neurological: Reports: No Symptoms ED EXAM, GI/ABD - Physical Exam Exam: See Below Exam Limited By: No Limitations General Appearance: Alert, WD/WN, No Apparent Distress Eyes: Bilateral: Normal Appearance Ears: Normal External Exam, Normal Canal, Hearing Grossly Normal Nose: Normal Inspection, No Blood Throat/Mouth: Normal Inspection, Normal Lips, Normal Oropharynx, Normal Voice, No Airway Compromise Head: Atraumatic, Normocephalic Neck: Normal Inspection Respiratory/Chest: No Respiratory Distress, Lungs Clear, Normal Breath Sounds, No Accessory Muscle Use Cardiovascular: Regular Rate, Rhythm, No Edema GI/Abdominal Exam: Normal Bowel Sounds, Soft, No Distention, Tender (worse upper, but has pain throughout her abdomen). No: Non-Tender, Distended, Guarding, Rigid, Rebound, Abnormal Bowel Sounds Back Exam: Normal Inspection Extremities: Normal Inspection, Normal Range of Motion, Non-Tender, No Pedal Edema Neurological: Alert, Oriented, CN II-XII Intact, Normal Cognition, No Motor/Sensory Deficits Psychiatric: Normal Affect, Normal Mood Skin Exam: Warm, Dry, Intact, Normal Color, No Rash Course - Vital Signs Text/Narrative:: Dr. Mace called @ Last Recorded V/S: Last Vital Signs Temp 36.3 C 02/29/20 19:28 Pulse 117 H 02/29/20 19:28 Resp 17 02/29/20 19:28 BP 151/90 H 02/29/20 19:28 Pulse Ox 99 02/29/20 19:28 - Orders/Labs/Meds Orders: Active Orders 24 hr Category Date Time Status Lactated Ringers [Ringers, Lactated] 1,000 ml Med 02/29/20 19:45 Active IV ASDIRECTED Potassium Chloride [KCL 20 MEQ in Water 100 ML] 20 meq Med 02/29/20 20:43 Active Premix Bag 1 bag IV ONETIME Medication Orders Lactated Ringer's (Ringers, Lactated) 1,000 mls @ 500 mls/hr IV ASDIRECTED MYA Last Admin: 02/29/20 20:01 Dose: 500 mls/hr Documented by: PIPO Potassium Chloride 20 meq/ (Premix) 100 mls @ 50 mls/hr IV ONETIME ONE Stop: 02/29/20 22:42 Labs: Laboratory Tests 02/29/20 02/29/20 02/29/20 Range/Units 19:28 19:51 19:51 WBC 7.8 (4.5-11.0) K/uL RBC 4.63 (3.30-5.50) M/uL Hgb 14.2 (12.0-15.0) g/dL Hct 42.6 (36.0-48.0) % MCV 92 (80-98) fL MCH 31 (27-31) pg MCHC 33 (32-36) % Plt Count 398 (150-400) K/uL Sodium 143 (140-148) mmol/L Potassium 2.6 L* (3.6-5.2) mmol/L Chloride 105 (100-108) mmol/L Carbon Dioxide 18 L (21-32) mmol/L Anion Gap 22.6 H (5.0-14.0) mmol/L BUN 5 L (7-18) mg/dL Creatinine 0.8 (0.6-1.0) mg/dL Est Cr Clr Drug Dosing 96.73 mL/min Estimated GFR (MDRD) > 60 (>60) Glucose 64 L (74-106) mg/dL Calcium 9.2 (8.5-10.1) mg/dL Magnesium (1.8-2.4) mg/dL Total Bilirubin 0.3 (0.2-1.0) mg/dL AST 26 (15-37) U/L ALT 44 (12-78) U/L Alkaline Phosphatase 80 (46-116) U/L C-Reactive Protein < 0.05 (0.0-0.3) mg/dL Total Protein 7.5 (6.4-8.2) g/dL Albumin 4.3 (3.4-5.0) g/dL Globulin 3.2 (2.3-3.5) g/dL Albumin/Globulin Ratio 1.3 (1.2-2.2) Lipase (73-393) U/L Urine Color (YELLOW) Urine Appearance (CLEAR) Urine pH (5.0-8.0) Ur Specific [place] (1.008-1.030) Urine Protein (NEGATIVE) mg/dL Urine Glucose (UA) (NEGATIVE) mg/dL Urine Ketones (NEGATIVE) mg/dL Urine Occult Blood (NEGATIVE) Urine Nitrite (NEGATIVE) Urine Bilirubin (NEGATIVE) Urine Urobilinogen (0.2-1.0) EU/dL Ur Leukocyte Esterase (NEGATIVE) Urine RBC (0-5) Urine WBC (0-5) Ur Epithelial Cells Amorphous Sediment Urine Bacteria Urine Mucus Urine Other 02/29/20 02/29/20 02/29/20 Range/Units 19:51 20:04 20:33 WBC (4.5-11.0) K/uL RBC (3.30-5.50) M/uL Hgb (12.0-15.0) g/dL Hct (36.0-48.0) % MCV (80-98) fL MCH (27-31) pg MCHC (32-36) % Plt Count (150-400) K/uL Sodium (140-148) mmol/L Potassium (3.6-5.2) mmol/L Chloride (100-108) mmol/L Carbon Dioxide (21-32) mmol/L Anion Gap (5.0-14.0) mmol/L BUN (7-18) mg/dL Creatinine (0.6-1.0) mg/dL Est Cr Clr Drug Dosing mL/min Estimated GFR (MDRD) (>60) Glucose (74-106) mg/dL Calcium (8.5-10.1) mg/dL Magnesium 2.5 H (1.8-2.4) mg/dL Total Bilirubin (0.2-1.0) mg/dL AST (15-37) U/L ALT (12-78) U/L Alkaline Phosphatase (46-116) U/L C-Reactive Protein (0.0-0.3) mg/dL Total Protein (6.4-8.2) g/dL Albumin (3.4-5.0) g/dL Globulin (2.3-3.5) g/dL Albumin/Globulin Ratio (1.2-2.2) Lipase 114 (73-393) U/L Urine Color Yellow (YELLOW) Urine Appearance Clear (CLEAR) Urine pH 5.0 (5.0-8.0) Ur Specific [place] <= 1.005 L (1.008-1.030) Urine Protein Negative (NEGATIVE) mg/dL Urine Glucose (UA) Negative (NEGATIVE) mg/dL Urine Ketones Negative (NEGATIVE) mg/dL Urine Occult Blood Trace-intact H (NEGATIVE) Urine Nitrite Negative (NEGATIVE) Urine Bilirubin Negative (NEGATIVE) Urine Urobilinogen 0.2 (0.2-1.0) EU/dL Ur Leukocyte Esterase Negative (NEGATIVE) Urine RBC 0-5 (0-5) Urine WBC Not seen (0-5) Ur Epithelial Cells Rare Amorphous Sediment Rare Urine Bacteria Rare Urine Mucus Rare Urine Other Meds: Medications Generic Name Dose Route Start Last Admin Trade Name Freq PRN Reason Stop Dose Admin Lactated Ringer's 1,000 mls @ 500 mls/hr 02/29/20 19:45 02/29/20 20:01 Ringers, Lactated IV 500 mls/hr ASDIRECTED MYA Administration Potassium Chloride 20 meq/ 100 mls @ 50 mls/hr 02/29/20 20:43 Premix IV 02/29/20 22:42 ONETIME ONE Discontinued Medications Generic Name Dose Route Start Last Admin Trade Name Freq PRN Reason Stop Dose Admin Acetaminophen 1,000 mg 02/29/20 20:19 02/29/20 20:31 Tylenol Extra Strength PO 02/29/20 20:20 1,000 mg ONETIME ONE Administration Hydromorphone HCl 0.5 mg 02/29/20 20:57 Dilaudid IVPUSH 02/29/20 20:58 ONETIME ONE Lidocaine HCl 5 ml 02/29/20 20:57 Xylocaine-Mpf 1% INJECT 02/29/20 20:58 ONETIME ONE Lorazepam 1 mg 02/29/20 19:39 02/29/20 20:00 Ativan IVPUSH 02/29/20 19:40 1 mg ONETIME ONE Administration Ondansetron HCl 4 mg 02/29/20 19:46 02/29/20 20:00 Zofran IVPUSH 02/29/20 19:47 4 mg ONETIME ONE Administration Potassium Chloride 20 meq 02/29/20 20:33 02/29/20 20:39 Klor-Con M20 PO 02/29/20 20:34 20 meq ONETIME ONE Administration - Re-Assessments/Exams Free Text/Narrative Re-Assessment/Exam: 02/29/20 20:20 Pain reduced after Dilaudid 1 mg IV, but not gone. Will give acetaminophen 1000 mg po next. Departure - Departure Time of Disposition: 21:25 Disposition: Admitted As Inpatient 65 Condition: Fair Clinical Impression: Hypokalemia Abdominal pain Qualifiers: Abdominal location: generalized Qualified Code(s): R10.84 - Generalized abdominal pain - Discharge Information Referrals: Frederick Ventura MD [Primary Care Provider] - Forms: ED Department Discharge Sepsis Event Note (ED) - Evaluation Sepsis Screening Result: No Definite Risk - Focused Exam Vital Signs: Vital Signs Temp Pulse Resp BP Pulse Ox 02/29/20 19:28 36.3 C 117 H 17 151/90 H 99 02/29/20 19:26 36.3 C 117 H 17 151/90 H 99 - My Orders Last 24 Hours: My Active Orders 02/29/20 19:45 Lactated Ringers [Ringers, Lactated] 1,000 ml IV ASDIRECTED 02/29/20 20:43 Potassium Chloride [KCL 20 MEQ in Water 100 ML] 20 meq Premix Bag 1 bag IV ONETIME - Assessment/Plan Last 24 Hours: My Active Orders 02/29/20 19:45 Lactated Ringers [Ringers, Lactated] 1,000 ml IV ASDIRECTED 02/29/20 20:43 Potassium Chloride [KCL 20 MEQ in Water 100 ML] 20 meq Premix Bag 1 bag IV ONETIME
[2020-02-29] MEDS: Lactated Ringers 1,000 ML IV SCH (20:01)
[2020-02-29] MEDS ORDERED: Acetaminophen 500 MG Tab PO ONE (20:19)
[2020-02-29] MEDS ORDERED: Potassium Chloride 20 MEQ Tab.ER PO ONE (20:33)
[2020-02-29] MEDS ORDERED: Potassium Chloride 20 MEQ in Premix Bag 1 BAG IV ONE (20:43)
[2020-02-29] MEDS ORDERED: HYDROmorphone 0.5 MG/0.5 ML Syringe IVPUSH ONE (20:57)
[2020-02-29] MEDS ORDERED: Naloxone 0.4 MG/ML SDV IVPUSH PRN (22:12)
[2020-02-29] MEDS ORDERED: diphenhydrAMINE 50 MG/ML SDV IVPUSH PRN (22:12)
[2020-02-29] MEDS ORDERED: Polyethylene Glycol 3350 Powder 119 GM Bottle PO ONE (22:17)
[2020-02-29] MEDS: HYDROmorphone/Normal Saline 15 MG/30 ML PCA IV SCH (22:48)
[2020-02-29] MEDS ORDERED: Polyethylene Glycol 3350 Powder 238 GM Bot ONE (23:36)
[2020-02-29] MEDS ORDERED: Polyethylene Glycol 3350 Powder 238 GM Bot PO ONE (23:50)
[2020-03-01] MEDS: Lactated Ringers 1,000 ML IV SCH ×2 (02:58→07:37)
[2020-03-01] MEDS: diphenhydrAMINE 25 MG Cap PO PRN ×2 (03:45→10:19)
[2020-03-01] MEDS ORDERED: Lactated Ringers 1,000 ML IV SCH (08:11)
[2020-03-01] MEDS ORDERED: Polyethylene Glycol 3350 Powder 119 GM Bottle PO ONE (08:30)
[2020-03-01] MEDS: Nicotine 14 MG/24 Hr Patch TRDERM SCH (10:54)
[2020-03-01] MEDS: Sertraline 50 MG Tab PO SCH (10:54)
--- NOTE | 2020-03-01 11:02 | HP ---
HISTORY OF PRESENT ILLNESS: Domenica was admitted last evening for recurrent abdominal pain. She has been in the emergency room twice for severe abdominal pain in her mid epigastric area as well as the left upper and lower abdominal quadrants. She has been taking Protonix and Carafate with no relief. Has had a history of pancreatitis and she does have 2 alcoholic drinks a day with dinner, which she states sometimes will make the pain worse. Has had nausea, diarrhea stools. No red or black. Pain comes and goes. Worsens with eating and alcohol. Associated symptoms, nausea. Pain on a pain scale of 1 to 10, 7/10, but is 1 to 2 after taking pain medication. ALLERGIES: SULFA AND LANOLIN ALCOHOL. CURRENT MEDICATIONS: Methylphenidate 20 mg p.o. daily, sertraline 100 mg p.o. daily, Depo- Provera 150 mg IM every 3 months, methylphenidate 10 mg p.o. daily, Protonix 40 mg p.o. daily, Carafate 1 g q.i.d. PAST MEDICAL HISTORY: HEENT: Wears corrective lenses. GASTROINTESTINAL: GERD, irritable bowel syndrome, history of pancreatitis, and SP cholecystectomy. GENITOURINARY: Negative. Periods are absent due to Depo-Provera. MUSCULOSKELETAL: No joint pain or welling. NEUROLOGIC: History of migraine headaches. No dizziness or loss of coordination. PSYCHIATRIC: Attention deficit hyperactivity disorder, anxiety and depression. SKIN: History of eczema. PAST SURGICAL HISTORY: [place] teeth removed in 2017, cholecystectomy, colonoscopy, esophagogastroduodenoscopy, and section. FAMILY HISTORY: Negative for any diabetes, heart, lung cancer, kidney or liver disease. SOCIAL HISTORY: Smokes daily for the past 10 years. Does drink coffee and caffeine. No recreational drugs. REVIEW OF SYSTEMS: CONSTITUTIONAL: Denies any fever, chills, night sweats, or fatigue. No weight loss. HEENT: Negative. RESPIRATORY: No cough. HEART: No chest pain, shortness of breath, fast irregular heart beat. GASTROINTESTINAL: As above. GENITOURINARY: No UTI signs or symptoms. MUSCULOSKELETAL: Denies any joint pain or swelling. SKIN: Negative for rash. NEUROLOGIC: No headaches, dizziness, loss of coordination. PSYCHIATRIC: Controlled anxiety, depression, and attention deficit hyperactivity disorder. PHYSICAL EXAMINATION: GENERAL: Domenica Alcala is a pleasant 24-year-old female. VITAL SIGNS: Height is 5 feet 5 inches, weight is 147 pounds. TPR is 96.6, 83, 18, blood pressure 113/72. HEENT: Negative. NECK: Supple. HEART: Regular rate and rhythm. LUNGS: Clear. ABDOMEN: There is marked tenderness noted in the left upper, mid, and lower abdominal quadrants. Slight distention. EXTREMITIES: Full range of motion. Negative for any joint swelling. NEUROLOGIC: Cranial nerves II through XII intact. SKIN: Without rash. PSYCHIATRIC: Mood and affect appropriate. ASSESSMENT: 1. Left abdominal pain. 2. Diarrhea. PLAN: Schedule and have consent signed for colonoscopy, IV sedation, Francisco Harrison MD, , 03/02/2020, first case at 07:15. N.p.o. after midnight. May have clear liquid diet today. MiraLax 119 g one time at 1400 today. Decrease lactated Ringer's to 100 mL per hour. We will evaluate p.r.n. or in a.m. Monique Longoria PA-C /[id number]
[2020-03-01] MEDS: HYDROmorphone/Normal Saline 15 MG/30 ML PCA IV SCH (15:05)
[2020-03-01] MEDS: Ondansetron 4 MG/2 ML SDV IVPUSH PRN (15:13)
[2020-03-01] MEDS: Acetaminophen 325 MG Tab PO PRN (18:17)
[2020-03-01] MEDS ORDERED: Pantoprazole 40 MG Vial IVPUSH SCH (19:00)
[2020-03-02] MEDS: Acetaminophen 325 MG Tab PO PRN ×2 (02:26→09:52)
[2020-03-02] MEDS: Ondansetron 4 MG/2 ML SDV IVPUSH PRN (02:27)
[2020-03-02] MEDS: HYDROmorphone/Normal Saline 15 MG/30 ML PCA IV SCH (05:52)
[2020-03-02] MEDS ORDERED: Midazolam 1 MG/ML 2 ML SDV ONE (07:00)
[2020-03-02] MEDS ORDERED: fentaNYL 100 MCG/2 ML SDV ONE (07:00)
[2020-03-02] MEDS ORDERED: Propofol 200 MG/20 ML SDV ONE (07:00)
[2020-03-02 09:18] VITALS: BP 133/93; PULSE 90
[2020-03-02] MEDS: Nicotine 14 MG/24 Hr Patch TRDERM SCH (09:29)
[2020-03-02] MEDS: Sertraline 50 MG Tab PO SCH (09:30)
--- NOTE | 2020-03-02 09:38 | PN ---
DATE OF SERVICE: 03/02/2020 SUBJECTIVE: Domenica has completed her bowel prep. She is n.p.o. for colonoscopy, and she is the first case. She states her pain is a little bit better in her left mid or lower abdomen. REVIEW OF SYSTEMS: Remainder of review of systems negative for any pertinent positives or negatives. OBJECTIVE: GENERAL: Domenica Alcala is a pleasant 24-year-old female, alert and orientated. VITAL SIGNS: Stable. HEENT: Negative. NECK: Supple. HEART: Regular rate and rhythm. LUNGS: Clear. ABDOMEN: Less tenderness is noted in her left mid and lower abdomen. EXTREMITIES: Without peripheral edema. SKIN: Warm and dry. NEUROLOGIC: Intact. PSYCHIATRIC: Mood and affect appropriate. PLAN: We will evaluate p.r.n. or in the a.m. Monique Longoria PA-C /[id number]
[2020-03-02] MEDS ORDERED: oxyCODONE 5 MG Tab PO PRN (09:51)
[2020-03-02] MEDS ORDERED: Hyoscyamine 0.125 MG Tab.SL SL PRN (09:51)
--- NOTE | 2020-03-02 09:53 | PCM.CONS ---
H&P History of Present Illness - General Date of Service: 03/02/20 Admit Problem/Dx: Admission Diagnosis/Problem Admission Diagnosis/Problem Abdominal pain Source of Information: Patient, Provider History Limitations: Reports: No Limitations - History of Present Illness Initial Comments - Free Text/Narative: CC: it hurts up here (points to epigastrium) HPI: Domenica was admitted 2 days ago for management of abdominal pain and possible colitis with thickening noted at the cecum on a CT scan. I was asked to see her by Dr. Harrison regarding abdominal pain with a negative work-up. She describes periodic flares of generalized but mostly epigastric abdominal pain. This usually starts out mild but progresses fairly quickly to severe. It is a sharp and crampy pain. It radiates throughout the abdomen. Pain medications do help. The pain eventually subsides over the course of a few days. There is associated nausea and vomiting. She has had multiple of these episodes recently. She has not had fevers. No change in bowel habits from baseline. No change in urinary symptoms. No shortness of breath. She does have a history of migraines and has had a migraine headache since onset of her abdominal pain. She has had extensive laboratory work-up as well as imaging including a CT scan and MRI of the abdomen. She has had upper and lower endoscopy with no acute f indings. left upper abd Pain Score (Numeric/FACES): 7 - Related Data Allergies/Adverse Reactions: Allergies Allergy/AdvReac Type Severity Reaction Status Date / Time Sulfa (Sulfonamide Allergy Intermediate Rash Verified 02/29/20 19:21 Antibiotics) lanolin alcohols Allergy Hives Verified 02/29/20 19:21 Home Medications: Home Meds Methylphenidate HCl [Methylphenidate HCl Cd] 20 mg PO DAILY 01/19/17 [History] Sertraline HCl 100 mg PO DAILY 01/19/17 [History] medroxyPROGESTERone [Depo-Provera] 150 mg IM ASDIRECTED 08/28/17 [History] Methylphenidate [Ritalin] 10 mg PO DAILY 02/20/20 [History] Pantoprazole Sodium [Protonix] 40 mg PO DAILY 30 Days #30 tablet. 02/21/20 [Rx] SUMAtriptan [Imitrex] 50 mg PO DAILY PRN #15 tablet 03/02/20 [Rx] Past Medical History HEENT History: Reports: Impaired Vision Gastrointestinal History: Reports: GERD, Irritable Bowel Syndrome, Pancreatitis Genitourinary History: Reports: STD SLOT OPERATIONS MANAGER History: Reports: Other OB/BYN History: pt is on 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 left foot FX Neurological History: Reports: Migraines Psychiatric History: Reports: ADHD, Anxiety, Depression Hematologic History: Reports: None Immunologic History: Reports: None Oncologic (Cancer) History: Reports: None Dermatologic History: Reports: Eczema Other Dermatologic History: eczema - Infectious Disease History Infectious Disease History: Reports: None - Past Surgical History Head Surgeries/Procedures: Reports: None HEENT Surgical History: Reports: Oral Surgery Other HEENT Surgeries/Procedures: wisdom teeth out on Jan 02, 2017 Cardiovascular Surgical History: Reports: None GI Surgical History: Reports: Cholecystectomy, Colonoscopy, EGD Female Surgical History: Reports: Section Neurological Surgical History: Reports: None Social & Family History - Family History Family Medical History: No Pertinent Family History - Tobacco Use Tobacco Use Status *Q: Current Every Day Tobacco User Years of Tobacco use: 10 Packs/Tins Daily: 5 Used Tobacco, but Quit: No - Caffeine Use Caffeine Use: Reports: Coffee, Energy Drinks, Soda, Tea - Alcohol Use Date of Last Drink: 02/29/20 Time of Last Drink: 18:30 - Recreational Drug Use Recreational Drug Use: No H&P Review of Systems - Review of Systems: Review Of Systems: See Below Free Text/Narrative: A complete 12 point review of systems was obtained. Pertinent positives and negatives are noted in the history of present illness. All other systems were reviewed and were negative except as noted. Exam - Exam Exam: See Below - Vital Signs Vital Signs: Last Vital Signs Temp 36.2 C 03/02/20 09:16 Pulse 90 03/02/20 09:16 Resp 16 03/02/20 09:16 BP 133/93 H 03/02/20 09:16 Pulse Ox 95 03/02/20 09:45 Weight: 66.678 kg - Exam Quality Assessment: No: Supplemental Oxygen General: Alert, Oriented, Cooperative. No: Mild Distress HEENT: Conjunctiva Clear, Mucosa Moist & [place] Neck: Supple, Trachea Midline Lungs: Normal Respiratory Effort. No: Wheezing Cardiovascular: Regular Rate, Regular Rhythm GI/Abdominal Exam: Soft, No Distention Extremities: No Pedal Edema. No: Increased Warmth Skin: Warm, Dry Neuro Extensive - Mental Status: Alert, Oriented x3, Nl Response to Commands Neuro Extensive - Motor, Sensory, Reflexes: No: Dysarthria, Abnormal Motor, Tremor Psychiatric: Alert, Normal Affect - Patient Data Result Diagrams: 02/29/20 19:51 03/01/20 04:15 Imaging Impressions Last 24 hrs: I did reviewed the CT scan dated February 21, 2020. There was some apparent thickening of the cecum which did raise concern for infection versus inflammatory bowel disease. She is status post cholecystectomy. No other acute findings. Sepsis Event Note - Evaluation Sepsis Screening Result: No Definite Risk - Focused Exam Vital Signs: Vital Signs Temp Temp Pulse Resp BP BP Pulse Ox 03/02/20 09:45 95 03/02/20 09:16 36.2 C 90 16 133/93 H 99 03/02/20 09:01 36.2 C 89 16 139/87 98 03/02/20 08:45 36.2 C 95 16 131/91 H 95 03/02/20 08:24 36.3 C 91 16 115/66 98 03/02/20 08:05 36.5 C 81 16 113/73 96 03/02/20 08:00 86 16 114/77 95 03/02/20 07:55 85 16 107/74 95 03/02/20 07:50 91 16 116/70 97 03/02/20 07:45 36.9 C 87 16 105/61 97 03/02/20 04:23 36.7 C 98 18 122/62 93 L 03/02/20 01:03 95 03/02/20 00:00 36.9 C 95 18 112/71 95 *Q Meaningful Use (ADM) - VTE Risk Assess *Q Each Risk Factor Represents 1 Point: None Total Score 1 Point Risk Factors: 0 Each Risk Factor Represents 2 Points: None Total Score 2 Point Risk Factors: 0 Each Risk Factor Represents 3 Points: None Total Score 3 Point Risk Factors: 0 Each Risk Factor Represents 5 Points: None Total Score 5 Point Risk Factors: 0 Venous Thromboembolism Risk Factor Score *Q: 0 Consult PN Assessment/Plan Procedures: Procedures ASSAY OF AMYLASE (12/14/19) ASSAY OF LACTIC ACID (01/03/20) ASSAY OF LIPASE (02/20/20) ASSAY THYROID STIM HORMONE (11/23/13) BLOOD TYPING SEROLOGIC ABO (02/18/13) BLOOD TYPING SEROLOGIC RH(D) (02/18/13) C-REACTIVE PROTEIN (02/20/20) CHORIONIC GONADOTROPIN ASSAY (01/03/20) CHORIONIC GONADOTROPIN TEST (08/21/14) CHYLMD TRACH DNA AMP PROBE (02/18/13) COMPLETE CBC W/AUTO DIFF WBC (02/20/20) COMPREHEN METABOLIC PANEL (02/20/20) CT ABD & PELV W/CONTRAST (02/20/20) CT LOWER EXTREMITY W/O DYE (08/08/17) CULTURE SCREEN ONLY (01/19/17) DIAGNOSTIC COLONOSCOPY (11/26/12) EGD BIOPSY SINGLE/MULTIPLE (01/03/20) EMERGENCY DEPT VISIT (02/20/20) EMERGENCY DEPT VISIT (12/14/19) EMERGENCY DEPT VISIT (12/14/19) EMERGENCY DEPT VISIT (09/02/17) EMERGENCY DEPT VISIT (02/26/17) EMERGENCY DEPT VISIT (01/19/17) EMERGENCY DEPT VISIT (08/21/14) EMERGENCY DEPT VISIT (03/19/14) EMERGENCY DEPT VISIT (11/23/13) EMERGENCY DEPT VISIT (04/06/13) BIOPHYS PROFIL W/O NST (09/23/13) BIOPHYS PROFILE W/NST (10/11/13) FLUOROSCOPY <1 HR PHYS/QHP (09/01/17) HYDRATE IV INFUSION ADD-ON (11/23/13) N.GONORRHOEAE DNA AMP PROB (02/18/13) OB US < 14 WKS SINGLE FETUS (02/19/13) OB US >/= 14 WKS SNGL FETUS (05/21/13) OB US LIMITED FETUS(S) (09/17/13) OFFICE O/P NEW SF 15-29 MIN (02/27/17) POSTOP FOLLOW-UP VISIT (03/13/17) REMOVAL OF BONE FOR GRAFT (09/01/17) REPAIR OF METATARSALS (09/01/17) ROUTINE VENIPUNCTURE (02/20/20) SARS-COV-2 COVID-19 AMP PRB (01/03/20) SMEAR WET [place] SALINE/INK (02/18/13) SPECIAL STAINS GROUP 1 (01/03/20) STREP A AG IA (01/19/17) THER/PROPH/DIAG INJ IV PUSH (02/20/20) THER/PROPH/DIAG INJ SC/IM (09/02/17) THER/PROPH/DIAG IV INF ADDON (01/03/20) THER/PROPH/DIAG IV INF INIT (01/03/20) TISSUE EXAM BY PATHOLOGIST (01/03/20) TISSUE EXAM FOR FUNGI (01/03/20) TRANSVAGINAL US OBSTETRIC (02/19/13) TREAT METATARSAL FRACTURE (02/27/17) TX/PRO/DX INJ NEW DRUG ADDON (02/20/20) TX/PRO/DX INJ SAME DRUG SEAL DELIVERY VEHICLE OFFICER (01/03/20) URINALYSIS AUTO W/SCOPE (02/20/20) URINE TEST (02/20/20) US EXAM PELVIC COMPLETE (11/23/13) X-RAY EXAM OF ANKLE (02/26/17) X-RAY EXAM OF FOOT (04/17/17) (1) Abdominal migraine SNOMED Code(s): 16183793 Code(s): G43.D0 - ABDOMINAL MIGRAINE, NOT INTRACTABLE Current Visit: Yes Qualifiers: Intractability: not intractable Qualified Code(s): G43.D0 - Abdominal migraine, not intractable Problem List Initiated/Reviewed/Updated: Yes My Orders Last 24 Hours: My Active Orders 03/02/20 09:50 Convert IV to Saline Lock [OM.PC] Routine 03/02/20 09:51 Hyoscyamine [Hyomax-SL] 0.125 mg SL Q4H PRN oxyCODONE 5 mg PO Q4H PRN 03/02/20 Lunch Regular Diet [DIET] Plan: ASSESSMENT AND RECOMMENDATIONS - Abdominal migraine, suspected-episodic epigastric but also generalized abdominal pain. Extensive work-up with imaging, laboratory and endoscopy studies. All of these have been unremarkable other than the recent CT scan that was concerning for inflammation/thickening at the cecum. Colonoscopy was unremarkable. Given its association with her migraine headache I suspect that she has abdominal migraines. She has reported previous success utilizing NSAIDs to get rid of her abdominal pain but this is not always successful. No other obvious etiology is apparent at this time. Irritable bowel syndrome could be considered but this seems quite intense for IBS. So far there is no evidence for inflammatory bowel syndrome. -Trial of Imitrex -Analgesia with acetaminophen and or ibuprofen -Follow-up pathology which is pending at the time of discharge -Outpatient follow-up with her primary care Thank you for the interesting consultation. Sonu Gaona MD Requesting Provider: Dr. Harrison Date Consult Requested: 03/02/20 Reason for Consult: Generalized abdominal pain with negative work-up Patient History Reviewed: Yes Admission H&P Reviewed: Yes Notified Requestor: Yes Time Spent (in minutes): 50
--- NOTE | 2020-03-02 14:33 | PCM.DCSUM1 ---
Discharge Summary - Hospital Course Brief History: 24-year-old female with history of tobacco dependence and ADHD who presented with acute generalized abdominal pain. She was admitted for management of possible colitis with thickening of the cecum noted on a CT scan. Diagnosis: Stroke: No - Discharge Data Discharge Date: 03/02/20 Discharge Disposition: Home, Self-Care 01 Condition: Good - Referral to Home Health Primary Care Physician: Frederick Ventura MD - Patient Summary/Data Consults: Consultations 03/02/20 08:36 Consult to Physician [CONS] Routine Consulting Provider: Francisco Harrison Call Completed to Consulting Physician: Yes Reason for Consult: abdominal pain Person Notified: malgorzata del valle Date Notified: 03/02/20 Time Notified: 07:45 Labs Pending at D/C: Pathology results from random biopsies taken during the colonoscopy Hospital Course: Domenica presented to the emergency room with epigastric and generalized abdominal pain. She was admitted to the hospital for pain control and further work-up. A recent CT scan had suggested there was thickening of the cecum raising concern for infection or inflammatory bowel disease. The morning after admission she was started on a colonoscopy prep. 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 Her nausea and vomiting had been improving. She was also in during a migraine headache. On the morning of discharge which was hospital day 2 she had a colonoscopy. This was completely normal. Random biopsies were taken and are pending at the time of discharge. I was asked to consult by Dr. Harrison regarding her abdominal pain. I am suspicious that she is having abdominal migraines. She describes significant abdominal pain that last for 2 to 3 days and has been associated with headache now and in the past. There is no other obvious etiology with fairly unremarkable laboratory studies, pretty much normal CT and MRI findings and normal EGD and colonoscopy. I did provide her a prescription for Imitrex which she will try to abort the either migraine headache or abdominal pain. I did encourage her to use this early in the course of her pain as its most likely to be successful if used early on. She will be following up with primary care in about 2 weeks. There are pathology results which are pending at the time of hospital discharge. - Patient Instructions Diet: Regular Diet as Tolerated Activity: As Tolerated Activity, Other: You may return to work 03/06/20 without restrictions Showering/Bathing: May Shower Notify Provider of: Fever, Increased Pain Other/Special Instructions: 1. You were in the hospital for management of generalized abdominal pain. You did have a colonoscopy which was unremarkable. Random biopsies were taken and the pathology is pending at the time of your discharge. We will contact you if we find any abnormal pathological changes. Your laboratory studies have been unremarkable. I am suspicious you may have an abdominal migraine syndrome. I have provided a prescription for Imitrex. You should take this medication within the first few hours of onset of either a migraine headache or abdominal pain with nausea if you think it is one of your typical abdominal pain episodes. You may also use ibuprofen or acetaminophen early on in the course of the headache or abdominal pain. Please follow-up as scheduled with your primary care provider. - Discharge Plan *PRESCRIPTION DRUG MONITORING PROGRAM REVIEWED*: Not Applicable *COPY OF PRESCRIPTION DRUG MONITORING REPORT IN PATIENT [place]: Not Applicable Prescriptions/Med Rec: SUMAtriptan [Imitrex] 50 mg PO DAILY PRN #15 tablet PRN Reason: migraine/abdominal migraine Home Medications: Home Meds Methylphenidate HCl [Methylphenidate HCl Cd] 20 mg PO DAILY 01/19/17 [History] Sertraline HCl 100 mg PO DAILY 01/19/17 [History] medroxyPROGESTERone [Depo-Provera] 150 mg IM ASDIRECTED 08/28/17 [History] Methylphenidate [Ritalin] 10 mg PO DAILY 02/20/20 [History] Pantoprazole Sodium [Protonix] 40 mg PO DAILY 30 Days #30 tablet. 02/21/20 [Rx] SUMAtriptan [Imitrex] 50 mg PO DAILY PRN #15 tablet 03/02/20 [Rx] Oxygen Therapy Mode: Room Air Patient Handouts: Recurrent Migraine Headache, Sumatriptan tablets Referrals: Frederick Ventura MD [Primary Care Provider] - (Please keep your previous schedule appointment with Dr. Ventura.) - Discharge Summary/Plan Comment DC Time >30 min.: No - Patient Data Vitals - Most Recent: Last Vital Signs Temp 36.2 C 03/02/20 09:16 Pulse 90 03/02/20 09:16 Resp 16 03/02/20 09:16 BP 133/93 H 03/02/20 09:16 Pulse Ox 95 03/02/20 09:45 Weight - Most Recent: 66.678 kg I&O - Last 24 hours: Intake & Output 03/01/20 03/02/20 03/02/20 22:59 06:59 14:59 Intake Total 1240 480 Output Total 400 Balance 840 480 Med Orders - Current: Current Medications Acetaminophen (Tylenol) 1,000 mg PO Q6H PRN PRN Reason: Pain Last Admin: 03/02/20 09:52 Dose: 975 mg Documented by: Diphenhydramine HCl (Benadryl) 25 mg IVPUSH Q6H PRN PRN Reason: Itching Diphenhydramine HCl (Benadryl) 25 mg PO Q6H PRN PRN Reason: Itching Last Admin: 03/01/20 10:19 Dose: 25 mg Documented by: Hyoscyamine (Hyomax-Sl) 0.125 mg SL Q4H PRN PRN Reason: Abdominal Pain Naloxone HCl (Narcan) 0.04 mg IVPUSH Q3M PRN PRN Reason: Respiratory Depression Nicotine (Habitrol) 14 mg TRDERM DAILY [facility] Last Admin: 03/02/20 09:29 Dose: Not Given Documented by: Ondansetron HCl (Zofran) 4 mg IVPUSH Q6H PRN PRN Reason: Nausea/Vomiting Last Admin: 03/02/20 02:27 Dose: 4 mg Documented by: Oxycodone HCl (Oxycodone) 5 mg PO Q4H PRN PRN Reason: Pain (moderate 4-6) Sertraline HCl (Zoloft) 100 mg PO DAILY [facility] Last Admin: 03/02/20 09:30 Dose: 100 mg Documented by: Discontinued Medications Acetaminophen (Tylenol Extra Strength) 1,000 mg PO ONETIME ONE Stop: 02/29/20 20:20 Last Admin: 02/29/20 20:31 Dose: 1,000 mg Documented by: Fentanyl (Sublimaze) Confirm Administered Dose 100 mcg .ROUTE .STK-MED ONE Stop: 03/02/20 07:01 Hydromorphone HCl (Dilaudid) 0.5 mg IVPUSH ONETIME ONE Stop: 02/29/20 20:58 Last Admin: 02/29/20 21:05 Dose: 0.5 mg Documented by: Hydromorphone HCl (Dilaudid Electrical & Instrumentation Supervisor 15 Mg In Ns 30 Ml) 15 mg IV ASDIRECTED [facility]; Protocol Last Admin: 03/02/20 05:52 Dose: 15 mg Documented by: Lactated Ringer's (Ringers, Lactated) 1,000 mls @ 250 mls/hr IV ASDIRECTED [facility] Last Admin: 03/01/20 07:37 Dose: 500 mls/hr Documented by: Potassium Chloride 20 meq/ (Premix) 100 mls @ 50 mls/hr IV ONETIME ONE Stop: 02/29/20 22:42 Last Admin: 02/29/20 21:05 Dose: 50 mls/hr Documented by: Potassium Acetate 20 meq/ (Sodium Chloride) 110 mls @ 50 mls/hr IV Q2H MYA Stop: 03/01/20 04:29 Last Admin: 03/01/20 03:45 Dose: 50 mls/hr Documented by: Lactated Ringer's (Ringers, Lactated) 1,000 mls @ 100 mls/hr IV ASDIRECTED [facility] Last Admin: 03/01/20 17:29 Dose: 100 mls/hr Documented by: Lidocaine HCl (Xylocaine-Mpf 1%) 5 ml INJECT ONETIME ONE Stop: 02/29/20 20:58 Last Admin: 02/29/20 21:05 Dose: 5 ml Documented by: Lorazepam (Ativan) 1 mg IVPUSH ONETIME ONE Stop: 02/29/20 19:40 Last Admin: 02/29/20 20:00 Dose: 1 mg Documented by: Midazolam HCl (Versed 1 Mg/Ml) Confirm Administered Dose 2 mg .ROUTE .STK-MED ONE Stop: 03/02/20 07:01 Ondansetron HCl (Zofran) 4 mg IVPUSH ONETIME ONE Stop: 02/29/20 19:47 Last Admin: 02/29/20 20:00 Dose: 4 mg Documented by: Pantoprazole Sodium (Protonix Iv) 40 mg IVPUSH Q24H [facility] Last Admin: 03/01/20 18:17 Dose: 40 mg Documented by: Polyethylene Glycol (Miralax) Confirm Administered Dose 238 gm .ROUTE .STK-MED ONE Stop: 02/29/20 23:37 Last Admin: 02/29/20 23:51 Dose: 238 gm Documented by: Polyethylene Glycol (Miralax) 238 gm PO ONETIME ONE Stop: 02/29/20 23:51 Last Admin: 03/01/20 00:03 Dose: Not Given Documented by: Polyethylene Glycol (Miralax) 119 gm PO ONETIME ONE Stop: 03/01/20 08:31 Last Admin: 03/01/20 10:19 Dose: 119 gram Documented by: Potassium Chloride (Klor-Con M20) 20 meq PO ONETIME ONE Stop: 02/29/20 20:34 Last Admin: 02/29/20 20:39 Dose: 20 meq Documented by: Propofol (Diprivan 20 Ml) Confirm Administered Dose 200 mg .ROUTE .STK-MED ONE Stop: 03/02/20 07:01
--- NOTE | 2020-03-12 11:48 | OR ---
DATE OF PROCEDURE: 03/02/2020 SURGEON: Francisco Harrison MD PREOPERATIVE DIAGNOSIS: Diffuse abdominal pain. POSTOPERATIVE DIAGNOSIS: Grossly normal colonoscopy. PROCEDURE: Flexible colonoscopy with cecal biopsies. ANESTHESIA: IV sedation. INDICATION FOR PROCEDURE: This is a 24-year-old female presenting with underlying diffuse abdominal pain. She has long history of recurrent episodes of abdominal pain and most recent CT scan suggestive of possible element of thickening of the cecum. The plan is to proceed with a colonoscopy with biopsies and polypectomy as indicated. Potential risks including bleeding and perforation were discussed and the patient wishes to proceed. DETAILS OF PROCEDURE: The patient was taken to the operating room and placed in the left lateral decubitus position. Initial digital rectal exam was performed which was unremarkable. Colonoscope was then passed through the rectum which revealed uncomplicated hemorrhoidal columns. Scope was then eventually passed to the level of the cecum. The prep was quite good with only small amount of liquid stool present. Overall there were no gross abnormalities noted within the diverticula. No areas of colitis and no polyps or other signs of neoplasia. Given the CT scan findings suggestive of some possible right colonic inflammation, random biopsies from the cecum were obtained. Minimal bleeding from biopsy sites was seen, and the scope was withdrawn and the above findings reconfirmed and the procedure then concluded. There were no evident complications. Francisco Harrison MD /[id number]
== END 2020-03-02 15:10 | disposition home or self-care (01) | DRG 392 ==
LOC: JP.ED 19:05 → JP.MS 21:17
PROVIDERS: ADMIT Surgery; ATTEND Surgery
PROC: 0DBH8ZX Excision of Cecum, Via Natural or Artificial Opening Endoscopic, Diagnostic (ICD-10-PCS; principal; 2020-03-02)
DX: K52.9 Noninfective gastroenteritis and colitis, unspecified (principal); F17.210 Nicotine dependence, cigarettes, uncomplicated; F90.9 Attention-deficit hyperactivity disorder, unspecified type; G43.909 Migraine, unspecified, not intractable, without status migrainosus; Z79.899 Other long term (current) drug therapy; Z88.2 Allergy status to sulfonamides; Z91.09 Other allergy status, other than to drugs and biological substances; H54.7 Unspecified visual loss; K21.9 Gastro-esophageal reflux disease without esophagitis; Z90.49 Acquired absence of other specified parts of digestive tract; F41.9 Anxiety disorder, unspecified; F32.9 Major depressive disorder, single episode, unspecified; Z98.890 Other specified postprocedural states; G89.29 Other chronic pain; M25.532 Pain in left wrist; Z20.822 Contact with and (suspected) exposure to COVID-19
CPT/HCPCS: 36415; 80048; 80053; 81001; 83690; 83735; 84100; 85027; 86140; 88305; 94762; 96365; 96375; 99222-AI; 99284; 99284-25; A9270-GY; C9113; J1170; J2001; J2060; J2250; J2405; J2704; J3010; J3480; J3490; J7120; U0002

== ENCOUNTER 2020-04-20 11:16 | Emergency (ER) | payer OTHER ==
[2020-04-20 11:22] VITALS: BP 155/94; PULSE 81
[2020-04-20] MEDS ORDERED: Ketorolac 60 MG/2 ML SDV IM ONE (11:40)
[2020-04-20] MEDS ORDERED: Ondansetron 4 MG Tab.DIS PO ONE (11:40)
--- NOTE | 2020-04-20 11:42 | EDM.PDOC ---
ED HPI GENERAL MEDICAL PROBLEM - General Chief Complaint: Gastrointestinal Problem Stated Complaint: MEDICAL VIA [facility] Time Seen by Provider: 04/20/20 11:37 Source of Information: Reports: Patient, RN Notes Reviewed History Limitations: Reports: No Limitations - History of Present Illness INITIAL COMMENTS - FREE TEXT/NARRATIVE: 24-year-old female presents emergency department today complaint of nausea body aches headache generalized ill feeling she received covid Maderna yesterday Generalized Pain Score (Numeric/FACES): 7 - Related Data Allergies Allergy/AdvReac Type Severity Reaction Status Date / Time Sulfa (Sulfonamide Allergy Intermediate Rash Verified 04/20/20 11:23 Antibiotics) lanolin alcohols Allergy Hives Verified 04/20/20 11:23 Home Meds: Home Meds Methylphenidate HCl [Methylphenidate HCl Cd] 20 mg PO DAILY 01/19/17 [History] medroxyPROGESTERone [Depo-Provera] 150 mg IM ASDIRECTED 08/28/17 [History] Methylphenidate [Ritalin] 10 mg PO DAILY 02/20/20 [History] SUMAtriptan [Imitrex] 50 mg PO DAILY PRN #15 tablet 03/02/20 [Rx] Ondansetron [Zofran ODT] 4 mg PO Q6H PRN #10 tab.dis 04/20/20 [Rx] Past Medical History HEENT History: Reports: Impaired Vision Gastrointestinal History: Reports: GERD, Irritable Bowel Syndrome, Pancreatitis Genitourinary History: Reports: STD 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 left foot FX Neurological History: Reports: Migraines Psychiatric History: Reports: ADHD, Anxiety, Depression Hematologic History: Reports: None Immunologic History: Reports: None Oncologic (Cancer) History: Reports: None Dermatologic History: Reports: Eczema Other Dermatologic History: eczema - Infectious Disease History Infectious Disease History: Reports: None - Past Surgical History HEENT Surgical History: Reports: Oral Surgery Other HEENT Surgeries/Procedures: wisdom teeth out on Jan 02, 2017 Cardiovascular Surgical History: Reports: None GI Surgical History: Reports: Cholecystectomy, Colonoscopy, EGD Female Surgical History: Reports: Section Neurological Surgical History: Reports: None Social & Family History - Family History Family Medical History: No Pertinent Family History - Tobacco Use Tobacco Use Status *Q: Current Every Day Tobacco User Years of Tobacco use: 10 Packs/Tins Daily: 0.2 Used Tobacco, but Quit: No Second Hand Smoke Exposure: Yes - Caffeine Use Caffeine Use: Reports: Coffee, Energy Drinks, Soda, Tea - Alcohol Use Days Per Week of Alcohol Use: 2 Number of Drinks Per Day: 4 Total Drinks Per Week: 8 - Recreational Drug Use Recreational Drug Use: No ED ROS GENERAL - Review of Systems Review Of Systems: See Below Constitutional: Reports: Fatigue Musculoskeletal: Reports: Muscle Pain, Muscle Stiffness Neurological: Reports: Headache ED EXAM, GENERAL - Physical Exam Exam: See Below Exam Limited By: No Limitations General Appearance: Alert, WD/WN, No Apparent Distress Respiratory/Chest: No Respiratory Distress, Lungs Clear, Normal Breath Sounds, No Accessory Muscle Use, Chest Non-Tender Cardiovascular: Regular Rate, Rhythm, No Murmur GI/Abdominal: Soft, Non-Tender Course - Vital Signs Last Recorded V/S: Last Vital Signs Temp 98.7 F 04/20/20 11:21 Pulse 81 04/20/20 11:21 Resp 16 04/20/20 11:21 BP 155/94 H 04/20/20 11:21 Pulse Ox 100 04/20/20 11:21 - Orders/Labs/Meds Meds: Medications Discontinued Medications Generic Name Dose Route Start Last Admin Trade Name Freq PRN Reason Stop Dose Admin Ketorolac Tromethamine 60 mg 04/20/20 11:40 04/20/20 11:48 Toradol IM 04/20/20 11:41 60 mg ONETIME ONE Administration Ondansetron HCl 4 mg 04/20/20 11:40 04/20/20 11:48 Zofran Odt PO 04/20/20 11:41 4 mg ONETIME ONE Administration Departure - Departure Time of Disposition: 11:57 Disposition: Home, Self-Care 01 Condition: Fair Clinical Impression: Adverse effect of COVID-19 vaccine - Discharge Information Prescriptions: Ondansetron [Zofran ODT] 4 mg PO Q6H PRN #10 tab.dis PRN Reason: Nausea Instructions: Nausea and Vomiting, Adult, [id number] Referrals: PCP,None [Primary Care Provider] - Forms: ED Department Discharge Additional Instructions: Continue with symptomatic care follow-up primary care as needed call return to the emergency department worsening of symptoms Sepsis Event Note (ED) - Evaluation Sepsis Screening Result: No Definite Risk - Focused Exam Vital Signs: Vital Signs Temp Pulse Resp BP Pulse Ox 04/20/20 11:21 98.7 F 81 16 155/94 H 100 - Assessment/Plan Plan: Assessment Acuity = acute Site and laterality = Covid vaccine symptomology Etiology = Maderna Manifestations = none Location of injury = Home Lab values = none Plan Good improvement with Zofran and Toradol provided in the emergency department prescription written for Zofran 4 mg ODT 1 tab p.o. every 6 hours as needed total #10 follow-up primary care as needed This note was dictated using Realie voice recognition software please call with any questions on syntax or grammar.
== END 2020-04-20 12:12 | disposition home or self-care (01) ==
LOC: JP.ED 11:16
DX: T88.1XXA Other complications following immunization, not elsewhere classified, initial encounter (principal); Z72.0 Tobacco use; Z79.899 Other long term (current) drug therapy; Z88.2 Allergy status to sulfonamides; Z91.048 Other nonmedicinal substance allergy status
CPT/HCPCS: 96372; 99283; A9270; J1885

== ENCOUNTER 2020-06-21 21:28 | Emergency (ER) | payer OTHER ==
[2020-06-21 21:42] VITALS: BP 144/101; PULSE 106
--- NOTE | 2020-06-21 21:43 | EDM.PDOC ---
ED HPI GENERAL MEDICAL PROBLEM - General Chief Complaint: Abdominal Pain Stated Complaint: PANCREATITIS? Time Seen by Provider: 06/21/20 21:45 Source of Information: Reports: Patient History Limitations: Reports: No Limitations - History of Present Illness INITIAL COMMENTS - FREE TEXT/NARRATIVE: Domenica is a 25-year-old female who is known to me from previous visit in February of this year. She comes in with complaint of 1 hour of epigastric and left upper quadrant pain associated with a low-grade fever to 100.4 F, nausea and mild vomiting. She has a history significant for recurrent pancreatitis, anxiety, gastroesophageal reflux disease with esophagitis, does report drinking 2 cocktails tonight before the onset of symptoms. Her daughter is currently being treated for strep throat. Left Upper Abdomen Pain Score (Numeric/FACES): 7 - Related Data Allergies Allergy/AdvReac Type Severity Reaction Status Date / Time Sulfa (Sulfonamide Allergy Intermediate Rash Verified 04/20/20 11:23 Antibiotics) lanolin alcohols Allergy Hives Verified 04/20/20 11:23 Home Meds: Home Meds Methylphenidate HCl [Methylphenidate HCl Cd] 20 mg PO DAILY 01/19/17 [History] medroxyPROGESTERone [Depo-Provera] 150 mg IM ASDIRECTED 08/28/17 [History] Methylphenidate [Ritalin] 10 mg PO DAILY 02/20/20 [History] SUMAtriptan [Imitrex] 50 mg PO DAILY PRN #15 tablet 03/02/20 [Rx] Past Medical History HEENT History: Reports: Impaired Vision Gastrointestinal History: Reports: GERD, Irritable Bowel Syndrome, Pancreatitis Genitourinary History: Reports: STD 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 left foot FX Neurological History: Reports: Migraines Psychiatric History: Reports: ADHD, Anxiety, Depression Hematologic History: Reports: None Immunologic History: Reports: None Oncologic (Cancer) History: Reports: None Dermatologic History: Reports: Eczema Other Dermatologic History: eczema - Infectious Disease History Infectious Disease History: Reports: None - Past Surgical History HEENT Surgical History: Reports: Oral Surgery Other HEENT Surgeries/Procedures: wisdom teeth out on Jan 02, 2017 Cardiovascular Surgical History: Reports: None GI Surgical History: Reports: Cholecystectomy, Colonoscopy, EGD Female Surgical History: Reports: Section Neurological Surgical History: Reports: None Social & Family History - Family History Family Medical History: No Pertinent Family History - Caffeine Use Caffeine Use: Reports: Coffee, Energy Drinks, Soda, Tea ED ROS GENERAL - Review of Systems Review Of Systems: See Below Constitutional: Reports: Fever (100.4 F), Malaise HEENT: Reports: No Symptoms Respiratory: Reports: No Symptoms Cardiovascular: Reports: No Symptoms Endocrine: Reports: No Symptoms GI/Abdominal: Reports: Abdominal Pain (Epigastric and left upper quadrant), Nausea, Vomiting Musculoskeletal: Reports: No Symptoms Skin: Reports: No Symptoms Neurological: Reports: No Symptoms Psychiatric: Reports: No Symptoms Hematologic/Lymphatic: Reports: No Symptoms Immunologic: Reports: No Symptoms ED EXAM, GI/ABD - Physical Exam Exam: See Below Exam Limited By: No Limitations General Appearance: Alert, Anxious, Mild Distress Eyes: Bilateral: EOMI Throat/Mouth: Normal Voice, No Airway Compromise, Other (Retropharyngeal erythema without exudates) Head: Atraumatic, Normocephalic Neck: Normal Inspection, Supple, Full Range of Motion. No: Lymphadenopathy (R), Lymphadenopathy (L) Respiratory/Chest: No Respiratory Distress, Lungs Clear, Normal Breath Sounds Cardiovascular: Normal Peripheral Pulses, Regular Rate, Rhythm, No Edema GI/Abdominal Exam: Normal Bowel Sounds, Soft, No Distention, Tender (Epigastric and left upper quadrant tenderness to palpation), Abnormal Bowel Sounds (Diminished bowel sounds). No: Guarding, Rigid, Rebound Back Exam: Normal Inspection, Full Range of Motion Extremities: Normal Inspection Neurological: Alert, Oriented, Normal Cognition, No Motor/Sensory Deficits Psychiatric: Normal Affect, Anxious Skin Exam: Warm, Dry Lymphatic: No Adenopathy Course - Vital Signs Last Recorded V/S: Last Vital Signs Temp 2.9 C L 06/21/20 21:41 Pulse 106 H 06/21/20 21:41 Resp 16 06/21/20 21:41 BP 144/101 H 06/21/20 21:41 Pulse Ox 100 06/21/20 21:41 - Orders/Labs/Meds Orders: Active Orders 24 hr Category Date Time Status CULTURE STREP A CONFIRMATION [] Stat Lab 06/21/20 21:55 Results STREP SCRN A RAPID W CULT CONF [] Stat Lab 06/21/20 21:55 Results Labs: Laboratory Tests 06/21/20 06/21/20 06/21/20 Range/Units 21:40 21:40 21:40 WBC 6.8 (4.5-11.0) K/uL RBC 4.47 (3.30-5.50) M/uL Hgb 14.4 (12.0-15.0) g/dL Hct 41.1 (36.0-48.0) % MCV 92 (80-98) fL MCH 32 H (27-31) pg MCHC 35 (32-36) % Plt Count 321 (150-400) K/uL Neut % (Auto) 56 (36-66) % Lymph % (Auto) 33 (24-44) % [place] % (Auto) 8 H (2-6) % Eos % (Auto) 3 (2-4) % Baso % (Auto) 0 (0-1) % Sodium 142 (140-148) mmol/L Potassium 3.4 L (3.6-5.2) mmol/L Chloride 104 (100-108) mmol/L Carbon Dioxide 22 (21-32) mmol/L Anion Gap 19.4 H (5.0-14.0) mmol/L BUN 6 L D (7-18) mg/dL Creatinine 0.8 (0.6-1.0) mg/dL Est Cr Clr Drug Dosing 92.02 mL/min Estimated GFR (MDRD) > 60 (>60) Glucose 96 (74-106) mg/dL Calcium 9.3 D (8.5-10.1) mg/dL Total Bilirubin 0.2 (0.2-1.0) mg/dL AST 19 (15-37) U/L ALT 26 (12-78) U/L Alkaline Phosphatase 64 (46-116) U/L Total Protein 7.2 (6.4-8.2) g/dL Albumin 4.3 (3.4-5.0) g/dL Globulin 2.9 (2.3-3.5) g/dL Albumin/Globulin Ratio 1.5 (1.2-2.2) Lipase 447 H (73-393) U/L Ethyl Alcohol 167 mg/dL Meds: Medications Discontinued Medications Generic Name Dose Route Start Last Admin Trade Name Freq PRN Reason Stop Dose Admin Sodium Chloride 1,000 mls @ 999 mls/hr 06/21/20 21:50 06/21/20 21:59 Normal Saline IV 06/21/20 22:50 999 mls/hr .BOLUS ONE Administration Ketorolac Tromethamine 30 mg 06/21/20 21:50 06/21/20 21:59 Ketorolac 30 Mg/Ml Sdv IVPUSH 06/21/20 21:51 30 mg ONETIME ONE Administration Ondansetron HCl 4 mg 06/21/20 21:50 06/21/20 21:59 Ondansetron 4 Mg/2 Ml Sdv IVPUSH 06/21/20 21:51 4 mg ONETIME ONE Administration - Re-Assessments/Exams Free Text/Narrative Re-Assessment/Exam: 06/21/20 23:03 I reviewed the patient's labs showing a normal CBC but elevation of her lipase at 449. The patient's blood alcohol is 167. When I inquired about this she did report that she actually drinks 6 Truly seltzers. She has been trying to cope with the stressors of being a single mom, working 2 jobs, trying to make ends meet, and the lack of daycare or support from her ex who only pays $50 a month in child support. She states that she has contacted the [facility] but they say she makes too much money do qualify for any assistance. Did discuss the effects of alcohol on her body especially in regards to her pancreas and causing a flare of pancreatitis. I do not think that she needs to be hospitalized at this time, however, we will put her on a clear liquid diet for the next 2 to 3 days and she should abstain from any alcohol use. She will follow up with her primary care provider, Dr. Ventura and then will inquire about restarting counseling with a psychologist at [facility]. My plan is to send her home with hydrocodone for pain control and Zofran for nausea. She was given a prescription for 8 tabs of hydrocodone and 10 tabs of Zofran. Occasions return to the ED were discussed. Departure - Departure Time of Disposition: 23:06 Disposition: Home, Self-Care 01 Clinical Impression: Acute pancreatitis Qualifiers: Pancreatitis type: alcohol induced Acute pancreatitis complication: unspecified Qualified Code(s): K85.20 - Alcohol induced acute pancreatitis without necrosis or infection - Discharge Information Instructions: Acute Pancreatitis, [id number], Pancreatitis Eating Plan Referrals: Frederick Ventura MD [Primary Care Provider] - Forms: ED Department Discharge Care Plan Goals: I would recommend sticking with clear liquids for the next 2 to 3 days. I have prescribed Zofran for nausea control and hydrocodone for pain control. If things worsen please return to the ED and we will reassess and determine the next course. I would like you to follow-up with your primary care provider and encourage you to consider counseling again to help reduce your stress levels. Sepsis Event Note (ED) - Evaluation Sepsis Screening Result: Possible Sepsis Risk - Focused Exam Vital Signs: Vital Signs Temp Pulse Resp BP Pulse Ox 06/21/20 21:41 2.9 C L 106 H 16 144/101 H 100 - Problem List & Annotations (1) Acute pancreatitis SNOMED Code(s): 834736784 Code(s): K85.90 - ACUTE PANCREATITIS WITHOUT NECROSIS OR INFECTION, UNSP Status: Acute Priority: High Current Visit: Yes Qualifiers: Pancreatitis type: alcohol induced Acute pancreatitis complication: unspecified Qualified Code(s): K85.20 - Alcohol induced acute pancreatitis without necrosis or infection - Problem List Review Problem List Initiated/Reviewed/Updated: Yes - My Orders Last 24 Hours: My Active Orders 06/21/20 21:55 CULTURE STREP A CONFIRMATION [RM] Stat STREP SCRN A RAPID W CULT CONF [RM] Stat - Assessment/Plan Last 24 Hours: My Active Orders 06/21/20 21:55 CULTURE STREP A CONFIRMATION [RM] Stat STREP SCRN A RAPID W CULT CONF [RM] Stat
[2020-06-21] MEDS ORDERED: Ketorolac 30 MG/ML SDV IVPUSH ONE (21:50)
[2020-06-21] MEDS ORDERED: Ondansetron 4 MG/2 ML SDV IVPUSH ONE (21:50)
[2020-06-21] MEDS ORDERED: Sodium Chloride 0.9% 1,000 ML IV ONE (21:50)
== END 2020-06-21 23:14 | disposition home or self-care (01) ==
LOC: JP.ED 21:28
DX: K85.20 Alcohol induced acute pancreatitis without necrosis or infection (principal); Z88.2 Allergy status to sulfonamides; Z91.018 Allergy to other foods
CPT/HCPCS: 36415; 80053; 80307; 83690; 85025; 87081; 87880; 96374; 96375; 99283; 99284; J1885; J2405; J7030

== ENCOUNTER 2020-07-01 23:11 | Emergency (ER) | payer OTHER ==
[2020-07-02] MEDS ORDERED: Nicotine 14 MG/24 Hr Patch TRDERM ONE (00:59)
--- NOTE | 2020-07-02 01:53 | EDM.PDOCBH ---
ED HPI GENERAL MEDICAL PROBLEM - General Chief Complaint: Drug or Alcohol Abuse Stated Complaint: EVAL Time Seen by Provider: 07/01/20 23:35 Source of Information: Reports: Patient, Other (Brought in by friend) History Limitations: Reports: Intoxication - History of Present Illness INITIAL COMMENTS - FREE TEXT/NARRATIVE: 25-year-old female with ongoing alcoholism, presents intoxicated wanting treatment. She is also complaining of some abdominal pain which she just started complaining about that after her last few drinks. She was seen a little over a week ago and had a mildly elevated lipase, this will be repeated but hopefully we can get her into a detox center. She is willing to go. Onset: Unknown/Unsure Associated Symptoms: Reports: Other (Mild to moderate upper abdominal discomfort with drinking) abd Pain Score (Numeric/FACES): 15 - Related Data Allergies Allergy/AdvReac Type Severity Reaction Status Date / Time Sulfa (Sulfonamide Allergy Intermediate Rash Verified 07/01/20 23:30 Antibiotics) lanolin alcohols Allergy Hives Verified 07/01/20 23:30 Home Meds: Home Meds Methylphenidate HCl [Methylphenidate HCl Cd] 20 mg PO DAILY 01/19/17 [History] medroxyPROGESTERone [Depo-Provera] 150 mg IM ASDIRECTED 08/28/17 [History] Methylphenidate [Ritalin] 10 mg PO DAILY 02/20/20 [History] SUMAtriptan [Imitrex] 50 mg PO DAILY PRN #15 tablet 03/02/20 [Rx] Past Medical History HEENT History: Reports: Impaired Vision Gastrointestinal History: Reports: GERD, Irritable Bowel Syndrome, Pancreatitis Genitourinary History: Reports: STD 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 left foot FX Neurological History: Reports: Migraines Psychiatric History: Reports: ADHD, Addiction, Anxiety, Depression, Other (See Below) Other Psychiatric History: ETOH Hematologic History: Reports: None Immunologic History: Reports: None Oncologic (Cancer) History: Reports: None Dermatologic History: Reports: Eczema Other Dermatologic History: eczema - Infectious Disease History Infectious Disease History: Reports: None - Past Surgical History Head Surgeries/Procedures: Reports: None HEENT Surgical History: Reports: Oral Surgery Other HEENT Surgeries/Procedures: wisdom teeth out on Jan 02, 2017 Cardiovascular Surgical History: Reports: None GI Surgical History: Reports: Cholecystectomy, Colonoscopy, EGD Female Surgical History: Reports: Section Neurological Surgical History: Reports: None Social & Family History - Family History Family Medical History: No Pertinent Family History - Tobacco Use Tobacco Use Status *Q: Current Every Day Tobacco User Years of Tobacco use: 10 Packs/Tins Daily: 0.2 - Caffeine Use Caffeine Use: Reports: Coffee, Soda, Tea - Recreational Drug Use Recreational Drug Use: No ED ROS GENERAL - Review of Systems Review Of Systems: See Below Constitutional: Reports: Malaise. Denies: Fever, Chills Respiratory: Denies: Shortness of Breath Cardiovascular: Denies: Chest Pain GI/Abdominal: Reports: Abdominal Pain. Denies: Diarrhea, Nausea, Vomiting Skin: Reports: No Symptoms Neurological: Denies: Headache Psychiatric: Reports: Anxiety, Depression ED EXAM, BEHAVIORAL HEALTH - Physical Exam Exam: See Below Exam Limited By: No Limitations General Appearance: Alert, No Apparent Distress, Other (Obviously intoxicated) Eye Exam: Bilateral Eye: Normal Inspection (No jaundice) Head: Atraumatic Respiratory/Chest: No Respiratory Distress Cardiovascular: Regular Rate, Rhythm, Tachycardia (Initially tachycardic but normalized by DC) GI/Abdominal: Tender (Reacts with tenderness in the upper abdomen but difficult to examine because of her intoxication) Extremities: Normal Inspection COURSE, BEHAVIORAL HEALTH COMP - Course Vital Signs: Last Vital Signs Temp 96.5 F L 07/02/20 02:16 Pulse 89 07/02/20 02:16 Resp 16 07/02/20 02:16 BP 99/57 L 07/02/20 02:16 Pulse Ox 99 07/02/20 02:16 Orders, Labs, Meds: Laboratory Tests 07/01/20 07/01/20 07/01/20 Range/Units 23:45 23:50 23:50 WBC 6.6 (4.5-11.0) K/uL RBC 4.35 (3.30-5.50) M/uL Hgb 13.7 (12.0-15.0) g/dL Hct 40.8 (36.0-48.0) % MCV 94 (80-98) fL MCH 32 H (27-31) pg MCHC 34 (32-36) % Plt Count 356 (150-400) K/uL Neut % (Auto) 53 (36-66) % Lymph % (Auto) 35 (24-44) % [place] % (Auto) 8 H (2-6) % Eos % (Auto) 3 (2-4) % Baso % (Auto) 0 (0-1) % Sodium 151 H (140-148) mmol/L Potassium 3.6 (3.6-5.2) mmol/L Chloride 111 H (100-108) mmol/L Carbon Dioxide 27 (21-32) mmol/L Anion Gap 16.6 H (5.0-14.0) mmol/L BUN 7 (7-18) mg/dL Creatinine 0.8 (0.6-1.0) mg/dL Est Cr Clr Drug Dosing 95.89 mL/min Estimated GFR (MDRD) > 60 (>60) Glucose 100 (74-106) mg/dL Calcium 8.1 L (8.5-10.1) mg/dL Lipase 141 (73-393) U/L Urine Opiates Screen Negative (NEGATIVE) Ur Oxycodone Screen Negative (NEGATIVE) Urine Methadone Screen Negative (NEGATIVE) Ur Propoxyphene Screen Negative (NEGATIVE) Ur Barbiturates Screen Negative (NEGATIVE) Ur Tricyclics Screen Negative (NEGATIVE) Ur Phencyclidine Scrn Negative (NEGATIVE) Ur Amphetamine Screen Negative (NEGATIVE) U Methamphetamines Scrn Negative (NEGATIVE) Urine MDMA Screen Negative (NEGATIVE) U Benzodiazepines Scrn Negative (NEGATIVE) U Cocaine Metab Screen Negative (NEGATIVE) U Marijuana (THC) Screen Negative (NEGATIVE) Ethyl Alcohol mg/dL SARS CoV-2 RNA Rapid KEYSHAWN 07/01/20 07/02/20 Range/Units 23:50 02:14 WBC (4.5-11.0) K/uL RBC (3.30-5.50) M/uL Hgb (12.0-15.0) g/dL Hct (36.0-48.0) % MCV (80-98) fL MCH (27-31) pg MCHC (32-36) % Plt Count (150-400) K/uL Neut % (Auto) (36-66) % Lymph % (Auto) (24-44) % [place] % (Auto) (2-6) % Eos % (Auto) (2-4) % Baso % (Auto) (0-1) % Sodium (140-148) mmol/L Potassium (3.6-5.2) mmol/L Chloride (100-108) mmol/L Carbon Dioxide (21-32) mmol/L Anion Gap (5.0-14.0) mmol/L BUN (7-18) mg/dL Creatinine (0.6-1.0) mg/dL Est Cr Clr Drug Dosing mL/min Estimated GFR (MDRD) (>60) Glucose (74-106) mg/dL Calcium (8.5-10.1) mg/dL Lipase (73-393) U/L Urine Opiates Screen (NEGATIVE) Ur Oxycodone Screen (NEGATIVE) Urine Methadone Screen (NEGATIVE) Ur Propoxyphene Screen (NEGATIVE) Ur Barbiturates Screen (NEGATIVE) Ur Tricyclics Screen (NEGATIVE) Ur Phencyclidine Scrn (NEGATIVE) Ur Amphetamine Screen (NEGATIVE) U Methamphetamines Scrn (NEGATIVE) Urine MDMA Screen (NEGATIVE) U Benzodiazepines Scrn (NEGATIVE) U Cocaine Metab Screen (NEGATIVE) U Marijuana (THC) Screen (NEGATIVE) Ethyl Alcohol 353 mg/dL SARS CoV-2 RNA Rapid KEYSHAWN Negative Medications Discontinued Medications Generic Name Dose Route Start Last Admin Trade Name Freq PRN Reason Stop Dose Admin Nicotine 14 mg 07/02/20 00:59 Nicotine 14 Mg/24 Hr Patch TRDERM 07/02/20 01:00 ONETIME ONE Re-Assessment/Re-Exam: Urine drug screen was negative, EtOH was 0.353. Lipase was normal, CBC and chemistry panel normal. She does meet criteria for detox at [facility], fortunately they had a bed available so she will be transferred. Covid was negative, patient remained relatively cooperative. She is still willing to go. Transportation will be arranged if possible. Departure - Departure Time of Disposition: 03:34 Disposition: DC/Tfer to Other 70 Clinical Impression: Alcohol abuse - Discharge Information Instructions: Alcohol Use Disorder Referrals: PCP,None [Primary Care Provider] - Forms: ED Department Discharge Care Plan Goals: Go directly to [facility] for admission and initial detox treatment for alcohol abuse. Sepsis Event Note (ED) - Evaluation Sepsis Screening Result: No Definite Risk
[2020-07-02 02:17] VITALS: BP 99/57; PULSE 89
== END 2020-07-02 03:48 | disposition other institution (70) ==
LOC: JP.ED 23:11
DX: F10.129 Alcohol abuse with intoxication, unspecified (principal); Z88.2 Allergy status to sulfonamides; Z91.048 Other nonmedicinal substance allergy status; Z20.822 Contact with and (suspected) exposure to COVID-19; Z72.0 Tobacco use; Y90.8 Blood alcohol level of 240 mg/100 ml or more
CPT/HCPCS: 36415; 80048; 80305-QW; 80307; 83690; 85025; 99283; 99284; U0002

== ENCOUNTER 2020-10-25 18:20 | Emergency (ER) | payer OTHER ==
[2020-10-25 19:33] VITALS: BP 135/98; PULSE 109
[2020-10-25] MEDS ORDERED: Pantoprazole 40 MG Vial IVPUSH ONE (19:57)
[2020-10-25] MEDS ORDERED: HYDROmorphone 1 MG/ML Syringe IVPUSH ONE (19:57)
[2020-10-25] MEDS ORDERED: Ondansetron 4 MG/2 ML SDV IVPUSH ONE (19:57)
[2020-10-25] MEDS ORDERED: Sodium Chloride 0.9% 1,000 ML IV SCH (20:00)
--- NOTE | 2020-10-25 20:04 | EDM.PDOC ---
ED HPI GENERAL MEDICAL PROBLEM - General Chief Complaint: Abdominal Pain Stated Complaint: PANCREAS ISSUES Time Seen by Provider: 10/25/20 18:46 Source of Information: Reports: Patient History Limitations: Reports: No Limitations - History of Present Illness INITIAL COMMENTS - FREE TEXT/NARRATIVE: Chief complaint: abdominal pain This is a 25 year old female presents to the ER via POV, she reports abdominal pain starting at 5 pm today after drinking 4 alcohol beverages. She reports a six year history of Pancreatitis - and this feels similar to previous pancreatitis pain. reports sharp constant pain, nausea, fever and chills. -last meal at 12 pm- ate a burger -last alcohol drink at 4:30 pm -last seen in Primary Care- Dr. Ventura about 2 months ago. Onset: Sudden Onset Date: 10/25/20 Onset Time: 19:00 Duration: Hour(s):, Constant Location: Reports: Abdomen Quality: Reports: Same as Previous Episode (history of pancreatitis), Sharp, Stabbing Severity: Severe Improves with: Reports: None Worsens with: Reports: Movement (alcohol) Associated Symptoms: Reports: Fever/Chills, Loss of Appetite, Nausea/Vomiting Abdomen Pain Score (Numeric/FACES): 9 - Related Data Allergies Allergy/AdvReac Type Severity Reaction Status Date / Time Sulfa (Sulfonamide Allergy Intermediate Rash Verified 10/25/20 19:33 Antibiotics) lanolin alcohols Allergy Hives Verified 10/25/20 19:33 Home Meds: Home Meds Methylphenidate HCl [Methylphenidate HCl Cd] 20 mg PO DAILY 01/19/17 [History] medroxyPROGESTERone [Depo-Provera] 150 mg IM ASDIRECTED 08/28/17 [History] Methylphenidate [Ritalin] 10 mg PO DAILY 02/20/20 [History] SUMAtriptan [Imitrex] 50 mg PO DAILY PRN #15 tablet 03/02/20 [Rx] Past Medical History HEENT History: Reports: Impaired Vision Gastrointestinal History: Reports: GERD, Irritable Bowel Syndrome, Pancreatitis Genitourinary History: Reports: STD [employer]PER[employer] SPECIALIST History: Reports: 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 left foot FX Neurological History: Reports: Migraines Psychiatric History: Reports: ADHD, Addiction, Anxiety, Depression, Other (See Below) Other Psychiatric History: ETOH Hematologic History: Reports: None Immunologic History: Reports: None Oncologic (Cancer) History: Reports: None Dermatologic History: Reports: Eczema Other Dermatologic History: eczema - Infectious Disease History Infectious Disease History: Reports: None - Past Surgical History Head Surgeries/Procedures: Reports: None HEENT Surgical History: Reports: Oral Surgery Other HEENT Surgeries/Procedures: wisdom teeth out on Jan 02, 2017 Cardiovascular Surgical History: Reports: None GI Surgical History: Reports: Cholecystectomy, Colonoscopy, EGD Female Surgical History: Reports: Section Neurological Surgical History: Reports: None Social & Family History - Family History Family Medical History: No Pertinent Family History - Tobacco Use Tobacco Use Status *Q: Current Every Day Tobacco User Years of Tobacco use: 11 Packs/Tins Daily: 0.4 - Caffeine Use Caffeine Use: Reports: Coffee - Alcohol Use Date of Last Drink: 10/25/20 - Recreational Drug Use Recreational Drug Use: No - Living Situation & Occupation Living situation: Reports: Single, with Significant Other (lives in [place], [place]. with friends.) ED ROS GENERAL - Review of Systems Review Of Systems: See Below Constitutional: Reports: Fever, Chills, Malaise, Decreased Appetite HEENT: Reports: No Symptoms Respiratory: Reports: No Symptoms Cardiovascular: Reports: No Symptoms Endocrine: Reports: No Symptoms GI/Abdominal: Reports: Abdominal Pain, Nausea, Vomiting : Reports: No Symptoms Musculoskeletal: Reports: No Symptoms Skin: Reports: No Symptoms Neurological: Reports: No Symptoms Psychiatric: Reports: No Symptoms Hematologic/Lymphatic: Reports: No Symptoms Immunologic: Reports: No Symptoms ED EXAM, GENERAL - Physical Exam Exam: See Below Exam Limited By: No Limitations General Appearance: Alert, Moderate Distress (laying curled up in position in chair.) Eye Exam: Bilateral Eye: EOMI, PERRL Ears: Normal External Exam, Normal Canal, Hearing Grossly Normal, Normal TMs Ear Exam: Bilateral Ear: Auricle Normal, Canal Normal, TM normal Nose: Normal Inspection, Normal Mucosa, No Blood Throat/Mouth: Normal Inspection, Normal Lips, Normal Teeth, Normal Gums, Normal Oropharynx, Normal Voice, No Airway Compromise Head: Atraumatic, Normocephalic Neck: Normal Inspection, Supple, Non-Tender, Full Range of Motion Respiratory/Chest: No Respiratory Distress, Lungs Clear, Normal Breath Sounds, No Accessory Muscle Use, Chest Non-Tender Cardiovascular: Normal Peripheral Pulses, Regular Rate, Rhythm, No Edema, No Gallop, No JVD, No Murmur, No Rub GI/Abdominal: Normal Bowel Sounds, Soft, Tender (epigastric ) (Female) Exam: Deferred Rectal (Female) Exam: Deferred Back Exam: Normal Inspection, Full Range of Motion, NT Extremities: Normal Inspection, Normal Range of Motion, Non-Tender, Normal Ca pillary Refill, No Pedal Edema Neurological: Alert, Oriented, CN II-XII Intact, Normal Cognition, Normal Gait, Normal Reflexes, No Motor/Sensory Deficits Psychiatric: Tearful Skin Exam: Warm, Dry, Intact, Normal Color, No Rash Lymphatic: No Adenopathy Course - Vital Signs Last Recorded V/S: Last Vital Signs Temp 96.9 F 10/25/20 19:31 Pulse 109 H 10/25/20 19:31 Resp 16 10/25/20 19:31 BP 135/98 H 10/25/20 19:31 Pulse Ox 100 10/25/20 19:31 - Orders/Labs/Meds Orders: Active Orders 24 hr Category Date Time Status Sodium Chloride 0.9% [Normal Saline] 1,000 ml Med 10/25/20 20:00 Active IV ASDIRECTED Medication Orders Sodium Chloride (Normal Saline) 1,000 mls @ 999 mls/hr IV ASDIRECTED MYA Last Admin: 10/25/20 20:10 Dose: 999 mls/hr Documented by: GERMÁN Labs: Laboratory Tests 10/25/20 10/25/20 10/25/20 Range/Units 20:03 20:03 20:03 WBC 8.6 (4.5-11.0) K/uL RBC 4.50 (3.30-5.50) M/uL Hgb 14.4 (12.0-15.0) g/dL Hct 41.3 (36.0-48.0) % MCV 92 (80-98) fL MCH 32 H (27-31) pg MCHC 35 (32-36) % Plt Count 342 (150-400) K/uL Neut % (Auto) 72.2 H (36-66) % Lymph % (Auto) 18.5 L (24-44) % [place] % (Auto) 6.8 H (2-6) % Eos % (Auto) 2.3 (2-4) % Baso % (Auto) 0.2 (0-1) % Sodium 138 L (140-148) mmol/L Potassium 3.7 (3.6-5.2) mmol/L Chloride 103 (100-108) mmol/L Carbon Dioxide 25 (21-32) mmol/L Anion Gap 13.7 (5.0-14.0) mmol/L BUN 12 D (7-18) mg/dL Creatinine 0.8 (0.6-1.0) mg/dL Est Cr Clr Drug Dosing 95.89 mL/min Estimated GFR (MDRD) > 60 (>60) Glucose 90 (74-106) mg/dL Calcium 8.6 (8.5-10.1) mg/dL Magnesium 2.3 D (1.8-2.4) mg/dL Total Bilirubin 0.3 (0.2-1.0) mg/dL AST 42 H D (15-37) U/L ALT 33 (12-78) U/L Alkaline Phosphatase 71 (46-116) U/L Total Protein 7.0 (6.4-8.2) g/dL Albumin 3.8 (3.4-5.0) g/dL Globulin 3.2 (2.3-3.5) g/dL Albumin/Globulin Ratio 1.2 (1.2-2.2) Amylase 68 (25-115) U/L Lipase 454 H (73-393) U/L Urine Color (YELLOW) Urine Appearance (CLEAR) Urine pH (5.0-8.0) Ur Specific [place] (1.008-1.030) Urine Protein (NEGATIVE) mg/dL Urine Glucose (UA) (NEGATIVE) mg/dL Urine Ketones (NEGATIVE) mg/dL Urine Occult Blood (NEGATIVE) Urine Nitrite (NEGATIVE) Urine Bilirubin (NEGATIVE) Urine Urobilinogen (0.2-1.0) EU/dL Ur Leukocyte Esterase (NEGATIVE) Urine RBC (0-5) Urine WBC (0-5) Ur Epithelial Cells Amorphous Sediment Urine Bacteria Urine Mucus Ethyl Alcohol mg/dL 10/25/20 10/25/20 Range/Units 20:03 20:21 WBC (4.5-11.0) K/uL RBC (3.30-5.50) M/uL Hgb (12.0-15.0) g/dL Hct (36.0-48.0) % MCV (80-98) fL MCH (27-31) pg MCHC (32-36) % Plt Count (150-400) K/uL Neut % (Auto) (36-66) % Lymph % (Auto) (24-44) % [place] % (Auto) (2-6) % Eos % (Auto) (2-4) % Baso % (Auto) (0-1) % Sodium (140-148) mmol/L Potassium (3.6-5.2) mmol/L Chloride (100-108) mmol/L Carbon Dioxide (21-32) mmol/L Anion Gap (5.0-14.0) mmol/L BUN (7-18) mg/dL Creatinine (0.6-1.0) mg/dL Est Cr Clr Drug Dosing mL/min Estimated GFR (MDRD) (>60) Glucose (74-106) mg/dL Calcium (8.5-10.1) mg/dL Magnesium (1.8-2.4) mg/dL Total Bilirubin (0.2-1.0) mg/dL AST (15-37) U/L ALT (12-78) U/L Alkaline Phosphatase (46-116) U/L Total Protein (6.4-8.2) g/dL Albumin (3.4-5.0) g/dL Globulin (2.3-3.5) g/dL Albumin/Globulin Ratio (1.2-2.2) Amylase (25-115) U/L Lipase (73-393) U/L Urine Color Yellow (YELLOW) Urine Appearance Clear (CLEAR) Urine pH 6.5 (5.0-8.0) Ur Specific [place] 1.010 (1.008-1.030) Urine Protein Negative (NEGATIVE) mg/dL Urine Glucose (UA) Negative (NEGATIVE) mg/dL Urine Ketones Negative (NEGATIVE) mg/dL Urine Occult Blood Trace-intact H (NEGATIVE) Urine Nitrite Negative (NEGATIVE) Urine Bilirubin Negative (NEGATIVE) Urine Urobilinogen 0.2 (0.2-1.0) EU/dL Ur Leukocyte Esterase Negative (NEGATIVE) Urine RBC 0-5 (0-5) Urine WBC 0-5 (0-5) Ur Epithelial Cells Few Amorphous Sediment Occasional Urine Bacteria Occasional Urine Mucus Occasional Ethyl Alcohol 161 mg/dL Meds: Medications Generic Name Dose Route Start Last Admin Trade Name Yelena PRN Reason Stop Dose Admin Sodium Chloride 1,000 mls @ 999 mls/hr 10/25/20 20:00 10/25/20 20:10 Normal Saline IV 999 mls/hr ASDIRECTED MYA Administration Discontinued Medications Generic Name Dose Route Start Last Admin Trade Name Yelena PRN Reason Stop Dose Admin Hydromorphone HCl 1 mg 10/25/20 19:57 10/25/20 20:09 Hydromorphone 1 Mg/Ml Syringe IVPUSH 10/25/20 19:58 1 mg ONETIME ONE Administration Ondansetron HCl 4 mg 10/25/20 19:57 10/25/20 20:09 Ondansetron 4 Mg/2 Ml Sdv IVPUSH 10/25/20 19:58 4 mg ONETIME ONE Administration Pantoprazole Sodium 40 mg 10/25/20 19:57 10/25/20 20:09 Pantoprazole 40 Mg Vial IVPUSH 10/25/20 19:58 40 mg ONETIME ONE Administration - Re-Assessments/Exams Free Text/Narrative Re-Assessment/Exam: 10/25/20 20:07 discussed with Ms. Alcala, will orders labs, treat nausea and pain. -IV Normal Saline 1 liter over one hour -IV Dilaudid 1 mg. -IV Protonix 40 mg -IV Zofran 4mg Labs- CBC, CMP, AMYLASE, LIPASE, UA WITH MICRO, ETOH LEVEL -Ms. Alcala agrees with plan of care. She has a Enforcement Manager that can pick her up after ER visit is complete. 10/25/20 20:58 -she is feeling better after IV medications and IV fluids. reviewed labs results with Ms. Alcala will discharge to home, rest, clear liquids advised no further drinking of alcohol if has return of symptoms return to ER for re-evaluation. Ms. Alcala agrees with plan of care. Departure - Departure Time of Disposition: 21:00 Disposition: Home, Self-Care 01 Condition: Good Clinical Impression: Pancreatitis Acute pancreatitis Qualifiers: Pancreatitis type: alcohol induced Acute pancreatitis complication: unspecified Qualified Code(s): K85.20 - Alcohol induced acute pancreatitis without necrosis or infection - Discharge Information *PRESCRIPTION DRUG MONITORING PROGRAM REVIEWED*: Not Applicable *COPY OF PRESCRIPTION DRUG MONITORING REPORT IN PATIENT MITCHELL: Not Applicable Instructions: Nausea and Vomiting, Adult, [id number], Abdominal Pain, Adult, [id number], Acute Pancreatitis, [id number] Referrals: Frederick Ventura MD [Primary Care Provider] - Forms: ED Department Discharge Care Plan Goals: Pancreatitis -rest -clear liquids -no further alcohol products -if symptoms return or has any concerns return to ER for recheck Sepsis Event Note (ED) - Evaluation Sepsis Screening Result: No Definite Risk - Focused Exam Vital Signs: Vital Signs Temp Pulse Resp BP Pulse Ox 10/25/20 19:31 96.9 F 109 H 16 135/98 H 100 - Problem List & Annotations (1) Acute pancreatitis SNOMED Code(s): 758600040 Code(s): K85.90 - ACUTE PANCREATITIS WITHOUT NECROSIS OR INFECTION, UNSP Status: Acute Priority: High Current Visit: Yes Qualifiers: Pancreatitis type: alcohol induced Acute pancreatitis complication: unspecified Qualified Code(s): K85.20 - Alcohol induced acute pancreatitis wit hout necrosis or infection - Problem List Review Problem List Initiated/Reviewed/Updated: Yes - My Orders Last 24 Hours: My Active Orders 10/25/20 20:00 Sodium Chloride 0.9% [Normal Saline] 1,000 ml IV ASDIRECTED - Assessment/Plan Last 24 Hours: My Active Orders 10/25/20 20:00 Sodium Chloride 0.9% [Normal Saline] 1,000 ml IV ASDIRECTED Plan: Pancreatitis -rest -clear liquids -no further alcohol products -if symptoms return or has any concerns return to ER for recheck
== END 2020-10-25 21:16 | disposition home or self-care (01) ==
LOC: JP.ED 18:20
DX: K85.20 Alcohol induced acute pancreatitis without necrosis or infection (principal); Z72.0 Tobacco use; Z88.2 Allergy status to sulfonamides; Z88.8 Allergy status to other drugs, medicaments and biological substances; Z79.899 Other long term (current) drug therapy
CPT/HCPCS: 36415; 80053; 80307; 81001; 82150; 83690; 83735; 85025; 96374; 96375; 99284; C9113; J1170; J2405; J7030

== ENCOUNTER 2020-12-03 14:17 | Emergency (ER) | payer OTHER ==
[2020-12-03] MEDS ORDERED: Sodium Chloride 0.9% 1,000 ML IV STA (15:48)
[2020-12-03] MEDS ORDERED: Sodium Chloride 0.9% 10 ML Syringe FLUSH PRN (15:48)
[2020-12-03] MEDS ORDERED: Ondansetron 4 MG/2 ML SDV IVPUSH ONE (15:49)
[2020-12-03] MEDS ORDERED: fentaNYL 100 MCG/2 ML SDV IVPUSH ONE (15:49)
--- NOTE | 2020-12-03 15:52 | EDM.PDOC ---
ED HPI GENERAL MEDICAL PROBLEM - General Chief Complaint: Abdominal Pain Stated Complaint: STOMACH PAIN/AT END OF COVID Time Seen by Provider: 12/03/20 15:34 Source of Information: Reports: Patient, Old Records, RN Notes Reviewed History Limitations: Reports: No Limitations - History of Present Illness INITIAL COMMENTS - FREE TEXT/NARRATIVE: 25-year-old female presents emergency department day complaint of abdominal pain, she has a known history of alcoholic pancreatitis does admit to consuming alcohol over the last 2 days. She recently had Covid she is about 14 days out f rom Covid and was vaccinated for Covid has not had any fevers is nauseated Abdomen Pain Score (Numeric/FACES): 7 - Related Data Allergies Allergy/AdvReac Type Severity Reaction Status Date / Time Sulfa (Sulfonamide Allergy Intermediate Rash Verified 12/03/20 15:10 Antibiotics) lanolin alcohols Allergy Hives Verified 12/03/20 15:10 Home Meds: Home Meds Methylphenidate HCl [Methylphenidate HCl Cd] 20 mg PO DAILY 01/19/17 [History] medroxyPROGESTERone [Depo-Provera] 150 mg IM ASDIRECTED 08/28/17 [History] Methylphenidate [Ritalin] 10 mg PO DAILY 02/20/20 [History] SUMAtriptan [Imitrex] 50 mg PO DAILY PRN #15 tablet 03/02/20 [Rx] Past Medical History HEENT History: Reports: Impaired Vision Gastrointestinal History: Reports: GERD, Irritable Bowel Syndrome, Pancreatitis Genitourinary History: Reports: STD [employer] History: Reports: Other [employer] History: pt is on 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 left foot FX Neurological History: Reports: Migraines Psychiatric History: Reports: ADHD, Addiction, Anxiety, Depression, Other (See Below) Other Psychiatric History: ETOH Dermatologic History: Reports: Eczema Other Dermatologic History: eczema - Past Surgical History Head Surgeries/Procedures: Reports: None HEENT Surgical History: Reports: Oral Surgery Other HEENT Surgeries/Procedures: wisdom teeth out on Jan 02, 2017 Cardiovascular Surgical History: Reports: None GI Surgical History: Reports: Cholecystectomy, Colonoscopy, EGD Female Surgical History: Reports: Section Neurological Surgical History: Reports: None Social & Family History - Family History Family Medical History: No Pertinent Family History - Tobacco Use Tobacco Use Status *Q: Current Status Unknown - Caffeine Use Caffeine Use: Reports: Coffee - Recreational Drug Use Recreational Drug Use: No - Living Situation & Occupation Living situation: Reports: Single, with Significant Other (lives in [facility] with friends.) ED ROS GENERAL - Review of Systems Review Of Systems: See Below Constitutional: Reports: No Symptoms Respiratory: Reports: No Symptoms Cardiovascular: Reports: No Symptoms GI/Abdominal: Reports: Abdominal Pain, Nausea ED EXAM, GI/ABD - Physical Exam Exam: See Below Exam Limited By: No Limitations General Appearance: Alert, Mild Distress Respiratory/Chest: No Respiratory Distress GI/Abdominal Exam: Soft, Tender (Upper quadrant left) Course - Vital Signs Last Recorded V/S: Last Vital Signs Temp 96.8 F L 12/03/20 15:09 Pulse 71 12/03/20 16:47 Resp 16 12/03/20 15:09 BP 123/87 12/03/20 16:47 Pulse Ox 100 12/03/20 16:47 - Orders/Labs/Meds Orders: Active Orders 24 hr Category Date Time Status Peripheral IV Care [RC] . DIRECTED Care 12/03/20 15:48 Active Sodium Chloride 0.9% [Saline Flush] Med 12/03/20 15:48 Active 10 ml FLUSH ASDIRECTED PRN Peripheral IV Insertion Adult [OM.PC] Urgent Oth 12/03/20 15:48 Ordered Medication Orders Sodium Chloride (Sodium Chloride 0.9% 10 Ml Syringe) 10 ml FLUSH ASDIRECTED PRN PRN Reason: Keep Vein Open Last Admin: 12/03/20 16:04 Dose: 10 ml Documented by: JAYA Labs: Laboratory Tests 12/03/20 12/03/20 12/03/20 Range/Units 16:00 16:00 16:00 WBC 9.8 (4.5-11.0) K/uL RBC 4.52 (3.30-5.50) M/uL Hgb 14.7 (12.0-15.0) g/dL Hct 41.5 (36.0-48.0) % MCV 92 (80-98) fL MCH 33 H (27-31) pg MCHC 35 (32-36) % Plt Count 396 (150-400) K/uL Neut % (Auto) 64.5 (36-66) % Lymph % (Auto) 26.9 (24-44) % [place] % (Auto) 6.6 H (2-6) % Eos % (Auto) 1.7 L (2-4) % Baso % (Auto) 0.3 (0-1) % Sodium 145 (140-148) mmol/L Potassium 3.9 (3.6-5.2) mmol/L Chloride 107 (100-108) mmol/L Carbon Dioxide 25 (21-32) mmol/L Anion Gap 12.9 (5.0-14.0) mmol/L BUN 9 (7-18) mg/dL Creatinine 0.7 (0.6-1.0) mg/dL Est Cr Clr Drug Dosing 105.17 mL/min Estimated GFR (MDRD) > 60 (>60) Glucose 86 (74-106) mg/dL Lactic Acid 1.4 (0.4-2.0) mmol/L Calcium 8.5 (8.5-10.1) mg/dL Total Bilirubin 0.2 (0.2-1.0) mg/dL AST 81 H D (15-37) U/L ALT 57 (12-78) U/L Alkaline Phosphatase 81 (46-116) U/L Total Protein 6.8 (6.4-8.2) g/dL Albumin 4.1 (3.4-5.0) g/dL Globulin 2.7 (2.3-3.5) g/dL Albumin/Globulin Ratio 1.5 (1.2-2.2) Lipase 111 (73-393) U/L HCG, Qual Ethyl Alcohol mg/dL 12/03/20 12/03/20 Range/Units 16:00 16:00 WBC (4.5-11.0) K/uL RBC (3.30-5.50) M/uL Hgb (12.0-15.0) g/dL Hct (36.0-48.0) % MCV (80-98) fL MCH (27-31) pg MCHC (32-36) % Plt Count (150-400) K/uL Neut % (Auto) (36-66) % Lymph % (Auto) (24-44) % [place] % (Auto) (2-6) % Eos % (Auto) (2-4) % Baso % (Auto) (0-1) % Sodium (140-148) mmol/L Potassium (3.6-5.2) mmol/L Chloride (100-108) mmol/L Carbon Dioxide (21-32) mmol/L Anion Gap (5.0-14.0) mmol/L BUN (7-18) mg/dL Creatinine (0.6-1.0) mg/dL Est Cr Clr Drug Dosing mL/min Estimated GFR (MDRD) (>60) Glucose (74-106) mg/dL Lactic Acid (0.4-2.0) mmol/L Calcium (8.5-10.1) mg/dL Total Bilirubin (0.2-1.0) mg/dL AST (15-37) U/L ALT (12-78) U/L Alkaline Phosphatase (46-116) U/L Total Protein (6.4-8.2) g/dL Albumin (3.4-5.0) g/dL Globulin (2.3-3.5) g/dL Albumin/Globulin Ratio (1.2-2.2) Lipase (73-393) U/L HCG, Qual Negative Ethyl Alcohol 312 mg/dL Meds: Medications Generic Name Dose Route Start Last Admin Trade Name Freq PRN Reason Stop Dose Admin Sodium Chloride 10 ml 12/03/20 15:48 12/03/20 16:04 Sodium Chloride 0.9% 10 Ml Syringe FLUSH 10 ml ASDIRECTED PRN Administration Keep Vein Open Discontinued Medications Generic Name Dose Route Start Last Admin Trade Name Freq PRN Reason Stop Dose Admin Fentanyl 50 mcg 12/03/20 15:49 12/03/20 16:01 Fentanyl 100 Mcg/2 Ml Sdv IVPUSH 12/03/20 15:50 50 mcg ONETIME ONE Administration Sodium Chloride 1,000 mls @ 999 mls/hr 12/03/20 15:48 12/03/20 16:00 Normal Saline IV 12/03/20 16:48 999 mls/hr .BOLUS STA Administration Ondansetron HCl 4 mg 12/03/20 15:49 12/03/20 16:01 Ondansetron 4 Mg/2 Ml Sdv IVPUSH 12/03/20 15:50 4 mg ONETIME ONE Administration Departure - Departure Time of Disposition: 17:25 Disposition: Home, Self-Care 01 Condition: Fair Clinical Impression: Abdominal pain Qualifiers: Abdominal location: generalized Qualified Code(s): R10.84 - Generalized abdominal pain - Discharge Information Instructions: Abdominal Pain, Adult, [id number] Referrals: Frederick Ventura MD [Primary Care Provider] - Forms: ED Department Discharge Additional Instructions: Use Tylenol for baseline pain control, use the hydrocodone for breakthrough pain, please followup with your primary care provider in 7-10 days if not better, please call return to the emergency department with worsening of symptoms. Sepsis Event Note (ED) - Evaluation Sepsis Screening Result: No Definite Risk - Focused Exam Vital Signs: Vital Signs Temp Pulse Resp BP Pulse Ox 12/03/20 16:47 71 123/87 100 12/03/20 15:09 96.8 F L 98 16 127/85 97 - My Orders Last 24 Hours: My Active Orders 12/03/20 15:48 Peripheral IV Care [RC] . DIRECTED Sodium Chloride 0.9% [Saline Flush] 10 ml FLUSH ASDIRECTED PRN Peripheral IV Insertion Adult [OM.PC] Urgent - Assessment/Plan Last 24 Hours: My Active Orders 12/03/20 15:48 Peripheral IV Care [RC] . DIRECTED Sodium Chloride 0.9% [Saline Flush] 10 ml FLUSH ASDIRECTED PRN Peripheral IV Insertion Adult [OM.PC] Urgent Plan: Assessment Acuity = acute Site and laterality = abdominal pain Etiology = unknown Manifestations = none Location of injury = Home Lab values = CBC, CMP unremarkable hCG is negative alcohol is at 312 Plan Given her history of pancreatitis so I think this is related to the alcohol did provide hydrocodone 5/325 1 tab p.o. 3 times daily as needed total of 10tablets she is can try this at home and then follow-up with her primary care continue to work on her pancreatic issues This note was dictated using [employer] voice recognition software please call with any questions on syntax or grammar.
[2020-12-03 16:48] VITALS: BP 123/87; PULSE 71
== END 2020-12-03 17:35 | disposition home or self-care (01) ==
LOC: JP.ED 14:17
DX: R10.84 Generalized abdominal pain (principal); R10.12 Left upper quadrant pain; Z88.2 Allergy status to sulfonamides; Z91.018 Allergy to other foods
CPT/HCPCS: 36415; 80053; 80307; 83605; 83690; 84703; 85025; 96374; 96375; 99284; J2405; J3010; J7030

== ENCOUNTER 2020-12-15 09:53 | Emergency (ER) | payer OTHER ==
[2020-12-15 10:38] VITALS: BP 131/92; PULSE 101
--- NOTE | 2020-12-15 11:07 | EDM.PDOC ---
ED HPI GENERAL MEDICAL PROBLEM - General Chief Complaint: Gastrointestinal Problem Stated Complaint: PASSING BLOOD WITH STOOLS Time Seen by Provider: 12/15/20 10:53 Source of Information: Reports: Patient, RN Notes Reviewed History Limitations: Reports: No Limitations - History of Present Illness INITIAL COMMENTS - FREE TEXT/NARRATIVE: 25-year-old female presents emergency department today complaint of bright red blood per rectum she does have a known history of IBS recently had a colonoscopy within a year she states mostly she has diarrhea she has not had any hard stools the stool she had today filled the toilet bowl with bright red blood she has had a second event. She is not feeling symptomatic at this time no palpitations no lightheadedness - Related Data Allergies Allergy/AdvReac Type Severity Reaction Status Date / Time Sulfa (Sulfonamide Allergy Intermediate Rash Verified 12/15/20 10:29 Antibiotics) lanolin alcohols Allergy Hives Verified 12/15/20 10:29 Home Meds: Home Meds Methylphenidate HCl [Methylphenidate HCl Cd] 20 mg PO DAILY 01/19/17 [History] medroxyPROGESTERone [Depo-Provera] 150 mg IM ASDIRECTED 08/28/17 [History] Methylphenidate [Ritalin] 10 mg PO DAILY 02/20/20 [History] SUMAtriptan [Imitrex] 50 mg PO DAILY PRN #15 tablet 03/02/20 [Rx] FLUoxetine HCl [Fluoxetine HCl] 40 mg PO DAILY 12/15/20 [History] Past Medical History HEENT History: Reports: Impaired Vision Gastrointestinal History: Reports: GERD, Hemorrhoids, Irritable Bowel Syndrome, Pancreatitis Genitourinary History: Reports: STD 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 left foot FX Neurological History: Reports: Migraines Psychiatric History: Reports: ADHD, Addiction, Anxiety, Depression, Other (See Below) Other Psychiatric History: ETOH Hematologic History: Reports: None Immunologic History: Reports: None Oncologic (Cancer) History: Reports: None Dermatologic History: Reports: Eczema Other Dermatologic History: eczema - Infectious Disease History Infectious Disease History: Reports: Novel Coronavirus - Past Surgical History Head Surgeries/Procedures: Reports: None HEENT Surgical History: Reports: Oral Surgery Other HEENT Surgeries/Procedures: wisdom teeth out on Jan 02, 2017 Cardiovascular Surgical History: Reports: None GI Surgical History: Reports: Cholecystectomy, Colonoscopy, EGD Female Surgical History: Reports: Section Neurological Surgical History: Reports: None Musculoskeletal Surgical History: Reports: Other (See Below) Other Musculoskeletal Surgeries/Procedures:: left foot surgery Dermatological Surgical History: Reports: None Social & Family History - Family History Family Medical History: No Pertinent Family History - Tobacco Use Tobacco Use Status *Q: Current Every Day Tobacco User Years of Tobacco use: 10 Packs/Tins Daily: 0.3 Used Tobacco, but Quit: No Second Hand Smoke Exposure: No - Caffeine Use Caffeine Use: Reports: Coffee, Energy Drinks, Soda, Tea - Alcohol Use Days Per Week of Alcohol Use: 1 Number of Drinks Per Day: 2 Total Drinks Per Week: 2 - Recreational Drug Use Recreational Drug Use: No - Living Situation & Occupation Living situation: Reports: Single, with Significant Other (lives in [place], [place]. with friends.) ED ROS GENERAL - Review of Systems Review Of Systems: See Below Constitutional: Reports: No Symptoms HEENT: Reports: No Symptoms Respiratory: Reports: No Symptoms Cardiovascular: Reports: No Symptoms GI/Abdominal: Reports: Bloody Stool. Denies: Nausea, Vomiting : Reports: No Symptoms ED EXAM, GI/ABD - Physical Exam Exam: See Below Exam Limited By: No Limitations General Appearance: Alert, WD/WN, No Apparent Distress Respiratory/Chest: No Respiratory Distress GI/Abdominal Exam: Soft, Non-Tender Rectal (Female) Exam: Normal Exam, Normal Rectal Tone, Hemorrhoids, Other (Done in the presence of nursing staff). No: Bloody Stool, Rectal Fissure, Tenderness Course - Vital Signs Last Recorded V/S: Last Vital Signs Temp 97.9 F 12/15/20 10:37 Pulse 101 H 12/15/20 10:37 Resp 14 12/15/20 10:37 BP 131/92 H 12/15/20 10:37 Pulse Ox 97 12/15/20 10:37 - Orders/Labs/Meds Orders: Active Orders 24 hr Category Date Time Status OCCULT BLOOD DIAGNOSTIC [OP] Stat Lab 12/15/20 11:01 Ordered Labs: Laboratory Tests 12/15/20 Range/Units 11:16 Hgb 14.0 (12.0-15.0) g/dL Departure - Departure Time of Disposition: 11:51 Disposition: Home, Self-Care 01 Condition: Fair Clinical Impression: Bright red blood per rectum - Discharge Information Instructions: Rectal Bleeding, [id number] Referrals: Frederick Ventura MD [Primary Care Provider] - Forms: ED Department Discharge Additional Instructions: Please follow-up for your colonoscopy on Friday of next week call return to the emergency department worsening of symptoms Sepsis Event Note (ED) - Focused Exam Vital Signs: Vital Signs Temp Pulse Resp BP Pulse Ox 12/15/20 10:37 97.9 F 101 H 14 131/92 H 97 - My Orders Last 24 Hours: My Active Orders 12/15/20 11:01 OCCULT BLOOD DIAGNOSTIC [OP] Stat - Assessment/Plan Last 24 Hours: My Active Orders 12/15/20 11:01 OCCULT BLOOD DIAGNOSTIC [OP] Stat Plan: Assessment Acuity = acute Site and laterality = bright red blood per rectum Etiology = unknown Manifestations = none Location of injury = Home Lab values = hemoglobin at 14 Plan Called and discussed case Dr. Harrison general surgery at 1145 he kindly agreed to evaluate the patient with colonoscopy set up for Friday of next week This note was dictated using [employer] voice recognition software please call with any questions on syntax or grammar.
== END 2020-12-15 12:14 | disposition home or self-care (01) ==
LOC: JP.ED 09:53
DX: K92.1 Melena (principal); Z88.2 Allergy status to sulfonamides; Z91.018 Allergy to other foods; Z86.16 Personal history of COVID-19; Z72.0 Tobacco use; Z20.822 Contact with and (suspected) exposure to COVID-19
CPT/HCPCS: 36415; 85018; 99283; U0002

== ENCOUNTER 2020-12-18 06:10 | Day surgery (SDC) | payer OTHER ==
[2020-12-18] MEDS ORDERED: fentaNYL 100 MCG/2 ML SDV ONE (07:07)
[2020-12-18] MEDS ORDERED: Propofol 200 MG/20 ML SDV ONE (07:07)
[2020-12-18] MEDS ORDERED: Midazolam 1 MG/ML 2 ML SDV ONE (07:07)
[2020-12-18] MEDS ORDERED: Dextrose 5%-Lactated Ringers 1,000 ML IV SCH ×2 (07:15→07:45)
[2020-12-18 11:02] VITALS: BP 110/73; PULSE 80
--- NOTE | 2020-12-21 14:22 | OR ---
DATE OF PROCEDURE: 12/18/2020 SURGEON: Francisco Harrison MD PREOPERATIVE DIAGNOSIS: History of recent rectal bleeding and irritable bowel syndrome. POSTOPERATIVE DIAGNOSES: 1. History of recent rectal bleeding and irritable bowel syndrome. 2. Excoriated mixed hemorrhoidal columns with otherwise normal colonoscopic examination. OPERATIVE PROCEDURE: Flexible colonoscopy. ANESTHESIA: IV sedation. INDICATION FOR PROCEDURE: A 25-year-old female presenting with a history of some recent rectal bleeding. She does have a history of irritable bowel syndrome and has some frequent loose bowel movements, at least intermittently. She had some rectal bleeding last week, but not in the last 2 days. Plan is to proceed with flexible colonoscopy with biopsies and/or polypectomy as indicated. Potential risks of the procedure including bleeding and perforation were discussed, and the patient wishes to proceed. DETAILS OF PROCEDURE: The patient was taken to the operating room and placed in a left lateral decubitus position. IV sedation was administered, after which the initial digital rectal exam was performed and was unremarkable. Colonoscope was then passed into the rectum, which showed some excoriated mixed hemorrhoidal columns. These would certainly be likely candidates for some intermittent bleeding, although no blood, bleeding, or ulceration was present today. Otherwise, the scope was eventually passed to the level of the cecum. There was a good prep. Only a small amount of liquid stool was present. No additional pathology was seen. Specifically, there were no areas of colitis, no areas of diverticular disease, and there were no polyps or other signs of neoplasia. The scope was then withdrawn, the above findings reconfirmed, and the procedure then concluded. At this point, the primary treatment I think would be to try to manage the irritable bowel syndrome as the frequent loose bowel movements are probably contributing to the patient's episodes of bleeding. The mixed hemorrhoids would not be good candidates for banding. The patient will be following up with Dr. Frederick Ventura in roughly 2 weeks. Francisco Harrison MD Job #: [id number]
== END 2020-12-18 11:05 | disposition home or self-care (01) ==
LOC: JP.SDS 06:10
PROVIDERS: ATTEND Surgery
DX: K62.5 Hemorrhage of anus and rectum (principal); K64.8 Other hemorrhoids; Z88.2 Allergy status to sulfonamides; Z87.19 Personal history of other diseases of the digestive system
CPT/HCPCS: 81025; J2250; J2704; J3010; J7121

== ENCOUNTER 2021-01-19 07:42 | Day surgery (SDC) | payer OTHER ==
[~2021-01-19 07:42] MED LIST: Acetaminophen 500 MG Tab PO ONE; Bupivacaine 0.5% 50 ML MDV ONE; Lidocaine 1% with EPINEPHrine 1:100,000 50 ML MDV ONE
[2021-01-19] MEDS ORDERED: Dextrose 5%-Lactated Ringers 1,000 ML IV SCH (07:45)
[2021-01-19] MEDS ORDERED: Propofol 200 MG/20 ML SDV ONE ×2 (07:55→10:13)
[2021-01-19] MEDS ORDERED: Midazolam 1 MG/ML 2 ML SDV ONE (07:55)
[2021-01-19] MEDS ORDERED: fentaNYL 100 MCG/2 ML SDV ONE (07:55)
[2021-01-19] MEDS ORDERED: Lidocaine 0.5% 50 ML SDV ONE (07:57)
[2021-01-19] MEDS ORDERED: Ondansetron 4 MG Tab.DIS PO ONE (11:33)
[2021-01-19] MEDS ORDERED: Ibuprofen 600 MG Tab PO ONE (11:33)
[2021-01-19] MEDS ORDERED: Ketorolac 30 MG/ML SDV IM ONE (12:00)
[2021-01-19 12:04] VITALS: BP 105/72; PULSE 66
--- NOTE | 2021-01-23 10:15 | OR ---
DATE OF PROCEDURE: 01/19/2021 SURGEON: Francisco Harrison MD PREOPERATIVE DIAGNOSIS: Ganglion cyst dorsum of right wrist. POSTOPERATIVE DIAGNOSIS: Ganglion cyst dorsum of right wrist. OPERATIVE PROCEDURE: Excision of ganglion cyst dorsum of right wrist ([id number]) ANESTHESIA: IV block plus sedation. INDICATIONS FOR PROCEDURE: A 25-year-old female presenting with increasingly symptomatic ganglion on the dorsum of the right wrist. After preoperative evaluation and discussion, she wished to proceed with excision. Potential risks of the procedure including bleeding, infection, injury to the nerves or tendons in the area, possible recurrence of the cyst over time were all reviewed, and the patient wishes to proceed. DETAILS OF PROCEDURE: The patient was taken to the operating room, and after IV sedation was administered, IV block was placed affecting the right forearm and hand. Those areas were then prepped and draped. The site of the cyst had been previously marked, but after draping, it was still easily palpable and a transverse incision was made and carried down through the skin and subcutaneous tissue. This was then dissected free from the surrounding soft tissues down to the level of the base where cyst was then opened which allowed further dissection down more or less immediately flush with the point where it came out of the wrist joint and it was excised at that level. Care was taken to avoid division of any surrounding soft tissues that might contain some nerve fibers and the adjacent tendons were also intact at this point. The point where the cyst had emanated from the joint was then cauterized with the needle point cautery to facilitate some scarring in that area. The tissue over the joint was then approximated with 2 [id number] stitches of 5-0 Vicryl stitch. Deeper soft tissues were then approximated with some 5-0 Vicryl stitch as well and the skin closed with a 5-0 Vicryl subcuticular stitch. Steri-Strips were applied along with pressure dressing. The patient was taken to the recovery room in satisfactory condition. There were no other complications. Francisco Harrison MD /[id number]
== END 2021-01-19 12:42 | disposition home or self-care (01) ==
LOC: JP.SDS 07:42
PROVIDERS: ATTEND Surgery
DX: M67.431 Ganglion, right wrist (principal); F41.1 Generalized anxiety disorder; F32.9 Major depressive disorder, single episode, unspecified; F17.200 Nicotine dependence, unspecified, uncomplicated; Z88.2 Allergy status to sulfonamides; Z88.8 Allergy status to other drugs, medicaments and biological substances
CPT/HCPCS: 25111; 81025; 88304; A9270; J0690; J1885; J2250; J2704; J3010; J7121; J3490

== ENCOUNTER 2021-02-10 21:40 | Emergency (ER) | payer OTHER ==
[2021-02-10 22:13] VITALS: BP 125/85; PULSE 101
[2021-02-10] MEDS ORDERED: HYDROmorphone 0.5 MG/0.5 ML Syringe IVPUSH ONE (22:26)
[2021-02-10] MEDS ORDERED: Sodium Chloride 0.9% 10 ML Syringe FLUSH PRN (22:26)
[2021-02-10] MEDS ORDERED: Ondansetron 4 MG/2 ML SDV IVPUSH ONE (22:26)
[2021-02-10] MEDS ORDERED: Sodium Chloride 0.9% 1,000 ML IV SCH (22:30)
[2021-02-10] MEDS ORDERED: Sodium Chloride 0.9% 10 ML Syringe FLUSH ONE (22:47)
[2021-02-10] MEDS ORDERED: Iopamidol 612 MG/ML 100 ML Bottle IV PRN (22:47)
[2021-02-10] MEDS ORDERED: Sodium Chloride 0.9% 75 ML IV SCH (23:00)
[2021-02-10] MEDS ORDERED: diphenhydrAMINE 50 MG/ML SDV IVPUSH ONE (23:03)
--- NOTE | 2021-02-10 23:15 | EDM.PDOC ---
ED HPI GENERAL MEDICAL PROBLEM - General Chief Complaint: Abdominal Pain Stated Complaint: ABDOMINAL PAIN Time Seen by Provider: 02/10/21 22:14 Source of Information: Reports: Patient, Old Records History Limitations: Reports: No Limitations - History of Present Illness INITIAL COMMENTS - FREE TEXT/NARRATIVE: Domenica is a 25-year-old female presenting to the ED for evaluation of upper abdominal pain accompanied by nausea and vomiting that has been worsening over the last 2 days. Patient has a history for recurrent pancreatitis and is concerned that she has an occurrence of that. She has been drinking beer for the last 2 days which may have contributed to her symptoms. She denies any fever but has had chills. Upon going into the room the patient is curled up in the position. Upper Abdomen Pain Score (Numeric/FACES): 7 - Related Data Allergies Allergy/AdvReac Type Severity Reaction Status Date / Time Sulfa (Sulfonamide Allergy Intermediate Rash Verified 02/10/21 22:13 Antibiotics) lanolin alcohols Allergy Hives Verified 02/10/21 22:13 Home Meds: Home Meds Methylphenidate HCl [Methylphenidate HCl Cd] 20 mg PO .MORNING 01/19/17 [History] Methylphenidate [Ritalin] 10 mg PO .NOON 02/20/20 [History] FLUoxetine HCl [Fluoxetine HCl] 60 mg PO DAILY 12/15/20 [History] Pantoprazole [ProTONIX] 40 mg PO DAILY #14 tab.cr 02/11/21 [Rx] Sucralfate [Carafate] 1 gm PO Q6HR #56 tab 02/11/21 [Rx] Past Medical History HEENT History: Reports: Impaired Vision Cardiovascular History: Reports: None Respiratory History: Reports: None Gastrointestinal History: Reports: Chronic Diarrhea, GERD, Hemorrhoids, Irritable Bowel Syndrome, Pancreatitis Genitourinary History: Reports: STD 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 left foot FX Neurological History: Reports: Migraines Psychiatric History: Reports: ADHD, Addiction, Anxiety, Depression, Other (See Below) Other Psychiatric History: ETOH Endocrine/Metabolic History: Reports: None Hematologic History: Reports: None Immunologic History: Reports: None Oncologic (Cancer) History: Reports: None Dermatologic History: Reports: Eczema Other Dermatologic History: eczema - Infectious Disease History Infectious Disease History: Reports: Novel Coronavirus - Past Surgical History Head Surgeries/Procedures: Reports: None HEENT Surgical History: Reports: Oral Surgery Other HEENT Surgeries/Procedures: wisdom teeth out on Jan 02, 2017 Cardiovascular Surgical History: Reports: None GI Surgical History: Reports: Cholecystectomy, Colonoscopy, EGD Female Surgical History: Reports: Section Endocrine Surgical History: Reports: None Neurological Surgical History: Reports: None Musculoskeletal Surgical History: Reports: Other (See Below) Other Musculoskeletal Surgeries/Procedures:: left foot surgery Dermatological Surgical History: Reports: None Social & Family History - Family History Family Medical History: No Pertinent Family History - Caffeine Use Caffeine Use: Reports: Coffee - Alcohol Use Date of Last Drink: 02/10/21 - Recreational Drug Use Recreational Drug Use: No - Living Situation & Occupation Living situation: Reports: Single, with Significant Other (lives in [facility] with friends.) ED ROS GENERAL - Review of Systems Review Of Systems: See Below Constitutional: Reports: Chills, Malaise, Decreased Appetite HEENT: Reports: No Symptoms Respiratory: Reports: No Symptoms Cardiovascular: Reports: No Symptoms Endocrine: Reports: No Symptoms GI/Abdominal: Reports: Abdominal Pain (Epigastric abdominal pain), Diarrhea (Patient reports that she did have several bouts of diarrhea), Nausea, Vomiting : Reports: No Symptoms Musculoskeletal: Reports: No Symptoms Skin: Reports: No Symptoms Neurological: Reports: No Symptoms Psychiatric: Reports: Anxiety Hematologic/Lymphatic: Reports: No Symptoms Immunologic: Reports: No Symptoms ED EXAM, GI/ABD - Physical Exam Exam: See Below Exam Limited By: No Limitations General Appearance: Alert, Anxious, Moderate Distress Eyes: Bilateral: EOMI Throat/Mouth: Normal Inspection, Normal Oropharynx, Normal Voice, No Airway Compromise Head: Atraumatic, Normocephalic Neck: Normal Inspection, Supple. No: Lymphadenopathy (R), Lymphadenopathy (L) Respiratory/Chest: No Respiratory Distress, Lungs Clear, Normal Breath Sounds Cardiovascular: Normal Peripheral Pulses, Regular Rate, Rhythm, No Murmur, Tachycardia GI/Abdominal Exam: Soft, No Distention, Guarding, Tender (Epigastric and right upper quadrant tenderness to palpation), Abnormal Bowel Sounds (Diminished bowel sounds). No: Rebound Back Exam: Normal Inspection Extremities: Normal Inspection Neurological: Alert, Oriented, Normal Cognition, No Motor/Sensory Deficits Psychiatric: Normal Affect, Anxious Skin Exam: Warm, Dry Lymphatic: No Adenopathy Course - Vital Signs Last Recorded V/S: Last Vital Signs Temp 36.8 C 02/10/21 22:12 Pulse 101 H 02/10/21 22:12 Resp 16 02/10/21 22:12 BP 125/85 02/10/21 22:12 Pulse Ox 99 02/10/21 22:12 - Orders/Labs/Meds Orders: Active Orders 24 hr Category Date Time Status Iopamidol [Isovue-300 (61%)] Med 02/10/21 22:47 Active 100 ml IV . DIRECTED PRN Sodium Chloride 0.9% [Normal Saline] 1,000 ml Med 02/10/21 22:30 Active IV ASDIRECTED Sodium Chloride 0.9% [Normal Saline] 75 ml Med 02/10/21 23:00 Active IV ASDIRECTED Sodium Chloride 0.9% [Saline Flush] Med 02/10/21 22:26 Active 10 ml FLUSH ASDIRECTED PRN Isolation [COMM] Stat Oth 02/10/21 22:28 Ordered Saline Lock Insert [OM.PC] Routine Oth 02/10/21 22:26 Ordered Medication Orders Sodium Chloride (Normal Saline) 1,000 mls @ 999 mls/hr IV ASDIRECTED [facility] Last Admin: 02/10/21 23:14 Dose: 999 mls/hr Documented by: SHEELA Sodium Chloride (Normal Saline) 75 mls @ 3 mls/sec IV ASDIRECTED [facility] Last Admin: 02/10/21 22:55 Dose: 3 mls/sec Documented by: REJI Iopamidol (Iopamidol 612 Mg/Ml 100 Ml Bottle) 100 ml IV . DIRECTED PRN PRN Reason: RADIOLOGY EXAM Stop: 02/11/21 22:48 Last Admin: 02/10/21 22:55 Dose: 100 ml Documented by: REJI Sodium Chloride (Sodium Chloride 0.9% 10 Ml Syringe) 10 ml FLUSH ASDIRECTED PRN PRN Reason: Keep Vein Open Last Admin: 02/10/21 22:48 Dose: 10 ml Documented by: SHEELA Labs: Laboratory Tests 02/10/21 02/10/21 02/10/21 Range/Units 22:35 22:35 22:41 WBC 5.0 (4.5-11.0) K/uL RBC 4.87 (3.30-5.50) M/uL Hgb 15.2 H (12.0-15.0) g/dL Hct 44.7 (36.0-48.0) % MCV 92 (80-98) fL MCH 31 (27-31) pg MCHC 34 (32-36) % Plt Count 310 (150-400) K/uL Neut % (Auto) 42.3 (36-66) % Lymph % (Auto) 38.7 (24-44) % [place] % (Auto) 10.3 H (2-6) % Eos % (Auto) 7.5 H (2-4) % Baso % (Auto) 1.2 H (0-1) % Sodium 142 (140-148) mmol/L Potassium 4.4 (3.6-5.2) mmol/L Chloride 107 (100-108) mmol/L Carbon Dioxide 23 (21-32) mmol/L Anion Gap 12.1 (5.0-14.0) mmol/L BUN 10 (7-18) mg/dL Creatinine 0.7 (0.6-1.0) mg/dL Est Cr Clr Drug Dosing 109.59 mL/min Estimated GFR (MDRD) > 60 (>60) Glucose 94 (74-106) mg/dL Calcium 8.0 L (8.5-10.1) mg/dL Total Bilirubin 0.1 L (0.2-1.0) mg/dL AST 28 (15-37) U/L ALT 34 (12-78) U/L Alkaline Phosphatase 75 (46-116) U/L C-Reactive Protein 0.56 H (0.0-0.3) mg/dL Total Protein 7.5 (6.4-8.2) g/dL Albumin 4.1 (3.4-5.0) g/dL Globulin 3.4 (2.3-3.5) g/dL Albumin/Globulin Ratio 1.2 (1.2-2.2) Lipase 216 (73-393) U/L Influenza Type A RNA Negative (NEGATIVE) RSV RNA (INAAT) Negative (NEGATIVE) Influenza Type B RNA Negative (NEGATIVE) SARS-CoV-2 RNA ([place]) Negative (NEGATIVE) Meds: Medications Generic Name Dose Route Start Last Admin Trade Name Yelena PRN Reason Stop Dose Admin Sodium Chloride 1,000 mls @ 999 mls/hr 02/10/21 22:30 02/10/21 23:14 Normal Saline IV 999 mls/hr ASDIRECTED MYA Administration Sodium Chloride 75 mls @ 3 mls/sec 02/10/21 23:00 02/10/21 22:55 Normal Saline IV 3 mls/sec ASDIRECTED MYA Administration Iopamidol 100 ml 02/10/21 22:47 02/10/21 22:55 Iopamidol 612 Mg/Ml 100 Ml Bottle IV 02/11/21 22:48 100 ml . DIRECTED PRN Administration RADIOLOGY EXAM Sodium Chloride 10 ml 02/10/21 22:26 02/10/21 22:48 Sodium Chloride 0.9% 10 Ml Syringe FLUSH 10 ml ASDIRECTED PRN Administration Keep Vein Open Discontinued Medications Generic Name Dose Route Start Last Admin Trade Name Yelena PRN Reason Stop Dose Admin Diphenhydramine HCl 50 mg 02/10/21 23:03 02/10/21 23:14 Diphenhydramine 50 Mg/Ml Sdv IVPUSH 02/10/21 23:04 50 mg ONETIME ONE Administration Hydromorphone HCl 0.5 mg 02/10/21 22:26 02/10/21 22:47 Hydromorphone 0.5 Mg/0.5 Ml Syringe IVPUSH 02/10/21 22:27 0.5 mg ONETIME ONE Administration Ondansetron HCl 4 mg 02/10/21 22:26 02/10/21 22:47 Ondansetron 4 Mg/2 Ml Sdv IVPUSH 02/10/21 22:27 4 mg ONETIME ONE Administration Sodium Chloride 10 ml 02/10/21 22:47 02/10/21 22:55 Sodium Chloride 0.9% 10 Ml Syringe FLUSH 02/10/21 22:48 10 ml ONETIME ONE Administration - Re-Assessments/Exams Free Text/Narrative Re-Assessment/Exam: 02/10/21 23:10 the patient returns from CT after undergoing a CT of the abdomen pelvis with contrast and the nanotechnology technician reports to me that the patient has developed urticaria on her back that is itchy since receiving the contrast. We will give her diphenhydramine 50 mg IV push. She denies any shortness of breath or difficulty swallowing. I did review the patient's labs showing a normal CBC with a leukocyte count of 5.0, hemoglobin of 15.2 and platelet count of 310,000. Surprisingly her comprehensive metabolic panel is normal with a sodium 142, potassium 4.4, chloride of 107, bicarbonate of 23, BUN of 10 with a creatinine of 0.7 and a glucose of 94. Her calcium is 8.0. Her bilirubin, AST, ALT, alkaline phosphatase are all normal. Her lipase is normal at 216. Her C-reactive protein is normal at 0.56. Certainly this is does not appear to be an acute pancreatitis, however, we will review the images from the CT of the abdomen and pelvis with contrast. After reviewing the CT of the abdomen and pelvis with contrast. The patient's pancreas does not show any evidence whatsoever of inflammation. Nor does it appear that she has any abnormalities concerning her gallbladder or liver. Overall, there is nothing much revealing about the CT of the abdomen and pelvis with contrast. We will wait for final report on this from [facility]. 02/11/21 00:16 the patient is negative for Covid, influenza, and RSV. The final report from [facility] is identical to my interpretation and there is nothing to account for her severe epigastric discomfort. I suspect that she has alcohol induced gastritis. We will put her on pantoprazole and Carafate to help heal the irritation of the stomach. At this time, the patient is suitable for discharge home. Indications to return to the ER were discussed. Departure - Departure Time of Disposition: 00:17 Disposition: Home, Self-Care 01 Clinical Impression: Alcoholic gastritis without bleeding Qualifiers: Chronicity: acute Qualified Code(s): K29.20 - Alcoholic gastritis without bleeding - Discharge Information Instructions: Abdominal Pain, Adult, [id number] Referrals: Frederick Ventura MD [Primary Care Provider] - Forms: ED Department Discharge Care Plan Goals: Your work-up today shows irritation of the lining of the stomach but no evidence whatsoever of pancreatitis, liver inflammation, or other suspicious lesions in the abdomen. I am putting you on Carafate 1 tablet 4 times a day and pantoprazole 40 mg daily for the next 2 weeks to help heal the stomach. No further alcohol consumption until healed. Sepsis Event Note (ED) - Evaluation Sepsis Screening Result: No Definite Risk - Focused Exam Vital Signs: Vital Signs Temp Pulse Resp BP Pulse Ox 02/10/21 22:12 36.8 C 101 H 16 125/85 99 - Problem List & Annotations (1) Alcoholic gastritis without bleeding SNOMED Code(s): 8715366, 7021671428 Code(s): K29.20 - ALCOHOLIC GASTRITIS WITHOUT BLEEDING Status: Acute Priority: High Current Visit: Yes Qualifiers: Chronicity: acute Qualified Code(s): K29.20 - Alcoholic gastritis without bleeding - Problem List Review Problem List Initiated/Reviewed/Updated: Yes - My Orders Last 24 Hours: My Active Orders 02/10/21 22:26 Sodium Chloride 0.9% [Saline Flush] 10 ml FLUSH ASDIRECTED PRN Saline Lock Insert [OM.PC] Routine 02/10/21 22:28 Isolation [COMM] Stat 02/10/21 22:30 Sodium Chloride 0.9% [Normal Saline] 1,000 ml IV ASDIRECTED 02/10/21 22:47 Iopamidol [Isovue-300 (61%)] 100 ml IV . DIRECTED PRN 02/10/21 23:00 Sodium Chloride 0.9% [Normal Saline] 75 ml IV ASDIRECTED - Assessment/Plan Last 24 Hours: My Active Orders 02/10/21 22:26 Sodium Chloride 0.9% [Saline Flush] 10 ml FLUSH ASDIRECTED PRN Saline Lock Insert [OM.PC] Routine 02/10/21 22:28 Isolation [COMM] Stat 02/10/21 22:30 Sodium Chloride 0.9% [Normal Saline] 1,000 ml IV ASDIRECTED 02/10/21 22:47 Iopamidol [Isovue-300 (61%)] 100 ml IV . DIRECTED PRN 02/10/21 23:00 Sodium Chloride 0.9% [Normal Saline] 75 ml IV ASDIRECTED
[2021-02-10 23:20] LABS: CORONAVIRUS COVID-19 NAA NEGATIVE (NEGATIVE)
--- NOTE | 2021-02-11 00:03 | CRLCT ---
For Patients: As a result of the Century Cures Act, medical imaging exams and procedure reports are released immediately into your electronic medical record. You may view this report before your referring provider. If you have questions, please contact your health care provider. INDICATION: Epigastric pain, history of pancreatitis. TECHNIQUE: CT abdomen and pelvis acquired with 100 cc Omnipaque 300 IV contrast. COMPARISON: CT abdomen and pelvis from 02/21/2020. FINDINGS: Lower chest: Unremarkable. Liver: Unremarkable. Normal in size and attenuation. No suspicious masses. Gallbladder and bile ducts: Surgically absent gallbladder. Normal caliber bile ducts. Pancreas: Unremarkable. No mass or inflammation. Spleen: Unremarkable. Normal in size. No masses. Adrenal glands: Unremarkable. No nodules. Kidneys: Unremarkable. No suspicious masses, stones, or hydronephrosis. GI tract: Unremarkable. Normal in caliber. No sign of mass or inflammation. Normal appendix. Vasculature: Unremarkable. Mesenteric arteries are patent. Lymph nodes: No lymphadenopathy. Omentum/Peritoneum/Abdominal Wall: Unremarkable. No sign of mass or infiltration. No free air or significant free fluid. Pelvis: Unremarkable. Bones: Unremarkable for age. IMPRESSION: No CT findings to explain the cause of epigastric pain. Specifically, no CT findings of pancreatitis. Please note that all CT scans at this facility use dose modulation, iterative reconstruction, and/or weight-based dosing when appropriate to reduce radiation dose to as low as reasonably achievable. Dictated by Eladio Rodriguez MD @ 02/11/2021 12:01:14 AM (Electronically Signed)
[2021-02-11] MEDS ORDERED: Sucralfate 1 GM Tab PO ONE (00:22)
== END 2021-02-11 00:38 | disposition home or self-care (01) ==
LOC: JP.ED 21:40
DX: K29.20 Alcoholic gastritis without bleeding (principal); K21.9 Gastro-esophageal reflux disease without esophagitis; Z88.2 Allergy status to sulfonamides; Z88.8 Allergy status to other drugs, medicaments and biological substances; Z79.899 Other long term (current) drug therapy; Z20.822 Contact with and (suspected) exposure to COVID-19
CPT/HCPCS: 0241U; 36415; 74177; 80053; 83690; 85025; 86140; 96374; 96375; 99284; A9270; J1170; J1200; J2405; J7030; Q9967

== ENCOUNTER 2021-04-17 19:55 | Emergency (ER) | payer OTHER ==
[2021-04-17] MEDS ORDERED: Acetaminophen/HYDROcodone 325-5 MG Tab PO ONE (20:14)
[2021-04-17 20:17] VITALS: PULSE 115
== END 2021-04-17 20:35 | disposition home or self-care (01) ==
LOC: JP.ED 19:55
DX: S90.32XA Contusion of left foot, initial encounter (principal); K21.9 Gastro-esophageal reflux disease without esophagitis; Z79.899 Other long term (current) drug therapy; Z86.16 Personal history of COVID-19; Z88.2 Allergy status to sulfonamides; Z72.0 Tobacco use; Z91.048 Other nonmedicinal substance allergy status; W00.9XXA Unspecified fall due to ice and snow, initial encounter; Y93.23 Activity, snow (alpine) (downhill) skiing, snowboarding, sledding, tobogganing and snow tubing
CPT/HCPCS: 73610-26-LT; 73610-LT; 73630-26-LT; 73630-LT; 99282; 99283; A9270-GY

== ENCOUNTER 2021-10-10 19:35 | Emergency (ER) | payer OTHER ==
[2021-10-10] MEDS ORDERED: Ondansetron 4 MG/2 ML SDV IVPUSH ONE ×2 (19:54→21:40)
[2021-10-10] MEDS ORDERED: Sodium Chloride 0.9% 10 ML Syringe FLUSH PRN (19:54)
[2021-10-10] MEDS ORDERED: Sodium Chloride 0.9% 1,000 ML IV SCH ×2 (20:00→21:45)
[2021-10-10] MEDS ORDERED: HYDROmorphone 1 MG/ML Syringe IVPUSH ONE ×2 (20:31→23:24)
[2021-10-10 20:34] LABS: ESTIMATED GFR 104 mL/min (>60)
[2021-10-10] MEDS ORDERED: Potassium Chloride 20 MEQ in Premix Bag 1 BAG IV ONE (20:50)
[2021-10-10] MEDS ORDERED: Iopamidol 612 MG/ML 100 ML Bottle IV SCH (22:00)
[2021-10-10] MEDS ORDERED: Sodium Chloride 0.9% 75 ML IV SCH (22:00)
[2021-10-11 01:09] VITALS: BP 136/94; PULSE 88
== END 2021-10-11 01:08 | disposition home or self-care (01) ==
LOC: JP.ED 19:35
DX: A08.4 Viral intestinal infection, unspecified (principal); E87.6 Hypokalemia; I10 Essential (primary) hypertension; K21.9 Gastro-esophageal reflux disease without esophagitis; F17.210 Nicotine dependence, cigarettes, uncomplicated; Z88.2 Allergy status to sulfonamides; Z91.048 Other nonmedicinal substance allergy status; Z79.899 Other long term (current) drug therapy; Z20.822 Contact with and (suspected) exposure to COVID-19
CPT/HCPCS: 36415; 74177; 80053; 81001; 83690; 85025; 87635; 96361; 96365; 96375; 96376; 99284; J1170; J2405; J3480; J3490; J7030; Q9967; U0002

== ENCOUNTER 2021-10-13 19:00 | Emergency (ER) | payer OTHER ==
[2021-10-13] MEDS ORDERED: Sodium Chloride 0.9% 10 ML Syringe FLUSH PRN (19:24)
[2021-10-13] MEDS ORDERED: Sodium Chloride 0.9% 1,000 ML IV ONE (19:24)
[2021-10-13] MEDS ORDERED: Ondansetron 4 MG/2 ML SDV IVPUSH ONE (19:33)
[2021-10-13] MEDS ORDERED: Pantoprazole 40 MG Vial IVPUSH ONE (19:33)
[2021-10-13] MEDS ORDERED: Prochlorperazine 10 MG/2 ML SDV IVPUSH ONE (19:45)
[2021-10-13] MEDS ORDERED: Sodium Chloride 0.9% 500 ML IV ONE (20:50)
[2021-10-13 21:36] VITALS: BP 97/58; PULSE 94
== END 2021-10-13 21:44 | disposition home or self-care (01) ==
LOC: JP.ED 19:00
DX: R00.0 Tachycardia, unspecified (principal); E86.0 Dehydration; R10.12 Left upper quadrant pain; R10.32 Left lower quadrant pain; R11.2 Nausea with vomiting, unspecified; F17.210 Nicotine dependence, cigarettes, uncomplicated; Z88.2 Allergy status to sulfonamides; Z88.8 Allergy status to other drugs, medicaments and biological substances; Z79.899 Other long term (current) drug therapy; Z86.16 Personal history of COVID-19; Z90.49 Acquired absence of other specified parts of digestive tract
CPT/HCPCS: 36415; 80048; 81001; 83735; 84443; 85025; 86140; 93005; 96361; 96374; 96375; 99285; C9113; J0780; J2405; J7030; J7040

== ENCOUNTER 2022-04-09 16:13 | Emergency (ER) | payer OTHER ==
[2022-04-09 18:26] VITALS: BP 144/87; PULSE 70
[2022-04-09] MEDS ORDERED: Ondansetron 4 MG Tab.DIS PO STA (20:13)
[2022-04-09 20:23] LABS: ESTIMATED GFR 104 mL/min (>60)
== END 2022-04-09 21:32 | disposition home or self-care (01) ==
LOC: JP.ED 16:13
DX: K59.04 Chronic idiopathic constipation (principal); F17.210 Nicotine dependence, cigarettes, uncomplicated; Z88.2 Allergy status to sulfonamides; Z91.048 Other nonmedicinal substance allergy status; Z86.16 Personal history of COVID-19
CPT/HCPCS: 36415; 74018; 80053; 81001; 83605; 83690; 84703; 85025; 99284; Q0162

== ENCOUNTER 2022-08-14 02:33 | Emergency (ER) | payer SELFPAY ==
[2022-08-14] MEDS ORDERED: Sodium Chloride 0.9% 10 ML Syringe FLUSH PRN (03:01)
[2022-08-14 03:05] LABS: BASOPHILS ABSOLUTE AUTO 0.07 K/uL (0.00-0.10); BASOPHILS PERCENT AUTO 0.7 % (0.1-1.3); EOSINOPHILS ABSOLUTE AUTO 0.28 K/uL (0.00-0.40); EOSINOPHILS PERCENT AUTO 2.9 % (0.0-5.4); HEMATOCRIT 41.2 % (34.3-46.0); HEMOGLOBIN 14.7 g/dL (11.2-15.5); IMMATURE GRAN ABSOLUTE AUTO 0.04 K/uL (0.00-0.23); IMMATURE GRAN PERCENT AUTO 0.4 % (0.0-0.7); LYMPHOCYTES ABSOLUTE AUTO 3.33 K/uL (0.8-3.3); LYMPHOCYTES PERCENT AUTO 34.1 % (11.4-47.7); MEAN CORPUSCULAR HEMOGLOBIN 32.2 pg (31.6-35.5); MEAN CORPUSCULAR HGB CONC 35.7 g/dL (31.6-35.5); MEAN CORPUSCULAR VOLUME 90.2 fL (81.4-99.0); MONOCYTES PERCENT AUTO 7.2 % (3.3-12.6); NEUTROPHILS ABSOLUTE AUTO 5.34 K/uL (1.0-7.6); NEUTROPHILS PERCENT AUTO 54.7 % (40.0-78.1); PLATELET COUNT,PLT 358 K/uL (130-375); RED BLOOD CELL COUNT 4.57 M/uL (3.77-5.24); WHITE BLOOD CELL COUNT,WBC 9.8 K/uL (3.2-11.0)
[2022-08-14 03:16] LABS: ALANINE AMINOTRANSFERASE,ALT 34 U/L (12-78); ALBUMIN 3.7 g/dL (3.4-5.0); ALKALINE PHOSPHATASE 85 U/L (46-116); ANION GAP 13.4 mmol/L (5.0-14.0); ASPARTATE AMNIOTRANSFERASE,AST 33 U/L (15-37); BILIRUBIN TOTAL 0.2 mg/dL (0.2-1.0); BLOOD UREA NITROGEN,BUN 6 mg/dL (7-18); CALCIUM 8.8 mg/dL (8.5-10.1); CARBON DIOXIDE,CO2 25 mmol/L (21-32); CHLORIDE,CL 105 mmol/L (100-108); CREATININE 0.7 mg/dL (0.6-1.0); EST CRCL DRUG DOSING (CG) 107.67 mL/min; ESTIMATED GFR 121 mL/min (>60); GLUCOSE RANDOM 97 mg/dL (74-106); POTASSIUM,K 3.4 mmol/L (3.6-5.2); PROTEIN TOTAL,TP 7.3 g/dL (6.4-8.2); SODIUM,NA 140 mmol/L (140-148)
[2022-08-14] MEDS ORDERED: Ondansetron 4 MG/2 ML SDV IVPUSH ONE (03:20)
[2022-08-14] MEDS ORDERED: Ketorolac 15 MG/ML SDV IVPUSH ONE (03:21)
[2022-08-14] MEDS ORDERED: Sodium Chloride 0.9% 1,000 ML IV SCH (03:30)
[2022-08-14] MEDS ORDERED: Sodium Chloride 0.9% 10 ML Syringe FLUSH ONE (03:32)
[2022-08-14] MEDS ORDERED: Sodium Chloride 0.9% 50 ML IV SCH (03:45)
[2022-08-14] MEDS ORDERED: Iopamidol 612 MG/ML 100 ML Bottle IV SCH (03:45)
[2022-08-14] MEDS ORDERED: HYDROmorphone 0.5 MG/0.5 ML Syringe IVPUSH ONE (03:59)
[2022-08-14 05:11] VITALS: BP 114/60; PULSE 94
== END 2022-08-14 05:08 | disposition home or self-care (01) ==
LOC: JP.ED 02:33
DX: A08.4 Viral intestinal infection, unspecified (principal); K85.90 Acute pancreatitis without necrosis or infection, unspecified; F10.920 Alcohol use, unspecified with intoxication, uncomplicated; K21.9 Gastro-esophageal reflux disease without esophagitis; Z88.2 Allergy status to sulfonamides; Z91.048 Other nonmedicinal substance allergy status; Z86.16 Personal history of COVID-19; Z72.0 Tobacco use
CPT/HCPCS: 36415; 74177; 80053; 80307; 83690; 84703; 85025; 96361; 96374; 96375; 99284; J1170; J1885; J2405; J3490; J7030; Q9967

== ENCOUNTER 2023-04-06 11:32 | Emergency (ER) | payer OTHER ==
[2023-04-06 12:01] VITALS: BP 140/84; PULSE 117
[2023-04-06 12:18] LABS: CORONAVIRUS COVID-19 NAA NEGATIVE (NEGATIVE); INFLUENZA A NAA POSITIVE (NEGATIVE); INFLUENZA B NAA NEGATIVE (NEGATIVE); RESPIRATORY SYNCYTIAL VIR NAA NEGATIVE (NEGATIVE)
[2023-04-06 12:37] LABS: BASOPHILS PERCENT AUTO 0.4 % (0.1-1.3); EOSINOPHILS PERCENT AUTO 0.2 % (0.0-5.4); HEMATOCRIT 36.8 % (34.3-46.0); HEMOGLOBIN 12.9 g/dL (11.2-15.5); LYMPHOCYTES PERCENT AUTO 7.7 % (11.4-47.7); MEAN CORPUSCULAR HEMOGLOBIN 32.7 pg (31.6-35.5); MEAN CORPUSCULAR HGB CONC 35.1 g/dL (31.6-35.5); MEAN CORPUSCULAR VOLUME 93.2 fL (81.4-99.0); MONOCYTES ABSOLUTE AUTO 0.42 K/uL (0.20-0.90); MONOCYTES PERCENT AUTO 8.1 % (3.3-12.6); NEUTROPHILS ABSOLUTE AUTO 4.33 K/uL (1.0-7.6); NEUTROPHILS PERCENT AUTO 83.6 % (40.0-78.1); PLATELET COUNT,PLT 205 K/uL (130-375); RED BLOOD CELL COUNT 3.95 M/uL (3.77-5.24); WHITE BLOOD CELL COUNT,WBC 5.2 K/uL (3.2-11.0)
[2023-04-06 12:39] LABS: BASE EXCESS VENOUS 0.6 mm/L; BICARBONATE,VENOUS 23.8 mmol/L; CARBOXYHEMOGLOBIN 1.4 % (0.0-1.6); METHEMOGLOBIN 1.2 %; O2 SATURATION VENOUS 46.9; OXYHEMOGLOBIN 45.7 %; PCO2 VENOUS 35.3 mm/Hg; PH,VENOUS 7.444 (7.350-7.450); TOTAL HEMOGLOBIN 13.5 g/dL (12.0-16.0)
[2023-04-06 12:42] LABS: BASOPHILS ABSOLUTE AUTO 0.02 K/uL (0.00-0.10); EOSINOPHILS ABSOLUTE AUTO 0.01 K/uL (0.00-0.40)
[2023-04-06 12:43] LABS: PO2 VENOUS 24.8 mm/Hg
[2023-04-06] MEDS: Sodium Chloride 0.9% 1,000 ML IV ONE (12:54)
[2023-04-06] MEDS: Prochlorperazine 10 MG/2 ML SDV IVPUSH ONE (12:55)
[2023-04-06] MEDS: Ketorolac 30 MG/ML SDV IVPUSH ONE (13:00)
[2023-04-06 13:03] LABS: ALANINE AMINOTRANSFERASE,ALT 40 U/L (12-78); ALBUMIN 3.3 g/dL (3.4-5.0); ALKALINE PHOSPHATASE 66 U/L (46-116); ANION GAP 12.7 mmol/L (5.0-14.0); ASPARTATE AMNIOTRANSFERASE,AST 49 U/L (15-37); BILIRUBIN TOTAL 0.2 mg/dL (0.2-1.0); BLOOD UREA NITROGEN,BUN 5 mg/dL (7-18); CALCIUM 7.7 mg/dL (8.5-10.1); CARBON DIOXIDE,CO2 25 mmol/L (21-32); CHLORIDE,CL 102 mmol/L (100-108); CREATININE 0.9 mg/dL (0.6-1.0); EST CRCL DRUG DOSING (CG) 83.74 mL/min; ESTIMATED GFR 89 mL/min (>60); GLUCOSE RANDOM 88 mg/dL (74-106); POTASSIUM,K 3.7 mmol/L (3.6-5.2); PROTEIN TOTAL,TP 6.7 g/dL (6.4-8.2); SODIUM,NA 136 mmol/L (140-148)
== END 2023-04-06 14:34 | disposition home or self-care (01) ==
LOC: JP.ED 11:32
DX: J11.1 Influenza due to unidentified influenza virus with other respiratory manifestations (principal); Z86.16 Personal history of COVID-19; Z88.2 Allergy status to sulfonamides; Z91.048 Other nonmedicinal substance allergy status
CPT/HCPCS: 0241U; 36415; 71045; 80053; 80307; 82803; 83605; 84145; 85025; 93005; 96361; 96374; 96375; 99285; J0780; J1885; J7030

== ENCOUNTER 2024-02-12 22:02 | Emergency (ER) | payer OTHER ==
[2024-02-12 23:18] LABS: APPEARANCE,URINE CLEAR (CLEAR); BILIRUBIN,URINE NEGATIVE (NEGATIVE); COLOR,URINE YELLOW (YELLOW); GLUCOSE,URINE NEGATIVE (NEGATIVE); KETONES,URINE NEGATIVE (NEGATIVE); LEUKOCYTE ESTERASE,URINE NEGATIVE (NEGATIVE); NITRITE,URINE NEGATIVE (NEGATIVE); OCCULT BLOOD,URINE NEGATIVE (NEGATIVE); PH,URINE 6.5 (5.0-8.0); PROTEIN,URINE NEGATIVE (NEGATIVE); UROBILINOGEN,URINE 0.2 EU/dL (0.2-1.0)
[2024-02-12 23:19] LABS: BASOPHILS ABSOLUTE AUTO 0.08 K/uL (0.00-0.10); BASOPHILS PERCENT AUTO 0.9 % (0.1-1.3); EOSINOPHILS ABSOLUTE AUTO 0.29 K/uL (0.00-0.40); EOSINOPHILS PERCENT AUTO 3.1 % (0.0-5.4); HEMATOCRIT 41.2 % (34.3-46.0); HEMOGLOBIN 14.8 g/dL (11.2-15.5); IMMATURE GRAN ABSOLUTE AUTO 0.04 K/uL (0.00-0.23); IMMATURE GRAN PERCENT AUTO 0.4 % (0.0-0.7); LYMPHOCYTES PERCENT AUTO 25.8 % (11.4-47.7); MEAN CORPUSCULAR HEMOGLOBIN 33.6 pg (31.6-35.5); MEAN CORPUSCULAR HGB CONC 35.9 g/dL (31.6-35.5); MEAN CORPUSCULAR VOLUME 93.6 fL (81.4-99.0); MONOCYTES ABSOLUTE AUTO 0.66 K/uL (0.20-0.90); MONOCYTES PERCENT AUTO 7.1 % (3.3-12.6); NEUTROPHILS ABSOLUTE AUTO 5.82 K/uL (1.0-7.6); NEUTROPHILS PERCENT AUTO 62.7 % (40.0-78.1); PLATELET COUNT,PLT 303 K/uL (130-375); WHITE BLOOD CELL COUNT,WBC 9.3 K/uL (3.2-11.0)
[2024-02-12] MEDS: Ondansetron 4 MG/2 ML SDV IVPUSH ONE (23:23)
[2024-02-12] MEDS: Sodium Chloride 0.9% 1,000 ML IV SCH (23:23)
[2024-02-12] MEDS: HYDROmorphone 0.5 MG/0.5 ML Syringe IVPUSH ONE (23:25)
[2024-02-12 23:26] LABS: AMORPHOUS SEDIMENT,URINE NOT SEEN; BACTERIA,URINE RARE; EPITHELIAL CELLS,URINE RARE; MUCUS,URINE NOT SEEN; RBC,URINE 0-5 (0-5); WBC,URINE 0-5 (0-5)
[2024-02-12 23:38] LABS: A/G RATIO 1.2 (1.2-2.2); ALANINE AMINOTRANSFERASE,ALT 28 U/L (12-78); ALBUMIN 3.7 g/dL (3.4-5.0); ALKALINE PHOSPHATASE 74 U/L (46-116); AMYLASE 38 U/L (25-115); ASPARTATE AMNIOTRANSFERASE,AST 24 U/L (15-37); BILIRUBIN TOTAL 0.1 mg/dL (0.2-1.0); BLOOD UREA NITROGEN,BUN 8 mg/dL (7-18); CALCIUM 8.6 mg/dL (8.5-10.1); CARBON DIOXIDE,CO2 24 mmol/L (21-32); CHLORIDE,CL 104 mmol/L (100-108); CREATININE 0.6 mg/dL (0.6-1.0); EST CRCL DRUG DOSING (CG) 119.47 mL/min; ESTIMATED GFR 125 mL/min (>60); GLUCOSE RANDOM 96 mg/dL (74-106); POTASSIUM,K 3.4 mmol/L (3.6-5.2); PROTEIN TOTAL,TP 6.8 g/dL (6.4-8.2); SODIUM,NA 141 mmol/L (140-148)
[2024-02-12 23:39] LABS: ANION GAP 16.4 mmol/L (5.0-14.0)
[2024-02-13] MEDS: Alum Hydrox/Mag Hydrox/Simeth 15 ML, Lidocaine 2% 15 ML PO ONE (00:18)
[2024-02-13 00:46] VITALS: BP 120/78; PULSE 98
[2024-02-13] MEDS: Sodium Chloride 0.9% 1,000 ML IV SCH (01:05)
[2024-02-13] MEDS: Pantoprazole 40 MG Vial IVPUSH ONE (01:05)
[2024-02-13] MEDS: HYDROmorphone 0.5 MG/0.5 ML Syringe IVPUSH ONE (01:32)
== END 2024-02-13 02:09 | disposition home or self-care (01) ==
LOC: JP.ED 22:02
DX: K29.70 Gastritis, unspecified, without bleeding (principal); F17.210 Nicotine dependence, cigarettes, uncomplicated; Z86.16 Personal history of COVID-19; Z90.49 Acquired absence of other specified parts of digestive tract; Z79.899 Other long term (current) drug therapy; Z88.2 Allergy status to sulfonamides; Z91.09 Other allergy status, other than to drugs and biological substances
CPT/HCPCS: 36415; 80053; 80307; 81001; 82150; 83690; 85025; 86140; 96361; 96374; 96375; 96376; 99284; 99284-25; A9270-GY; J2405; J2470; J7030

== ENCOUNTER 2024-07-31 00:49 | Emergency (ER) | payer SELFPAY ==
[2024-07-31 01:16] LABS: WHITE BLOOD CELL COUNT,WBC 8.8 K/uL (3.2-11.0)
[2024-07-31 01:17] LABS: BASOPHILS ABSOLUTE AUTO 0.07 K/uL (0.00-0.10); BASOPHILS PERCENT AUTO 0.8 % (0.1-1.3); EOSINOPHILS ABSOLUTE AUTO 0.15 K/uL (0.00-0.40); EOSINOPHILS PERCENT AUTO 1.7 % (0.0-5.4); HEMATOCRIT 43.8 % (34.3-46.0); HEMOGLOBIN 15.1 g/dL (11.2-15.5); IMMATURE GRAN ABSOLUTE AUTO 0.03 K/uL (0.00-0.23); IMMATURE GRAN PERCENT AUTO 0.3 % (0.0-0.7); LYMPHOCYTES ABSOLUTE AUTO 2.25 K/uL (0.8-3.3); LYMPHOCYTES PERCENT AUTO 25.5 % (11.4-47.7); MEAN CORPUSCULAR HEMOGLOBIN 32.8 pg (31.6-35.5); MEAN CORPUSCULAR HGB CONC 34.5 g/dL (31.6-35.5); MEAN CORPUSCULAR VOLUME 95.2 fL (81.4-99.0); MONOCYTES ABSOLUTE AUTO 0.74 K/uL (0.20-0.90); MONOCYTES PERCENT AUTO 8.4 % (3.3-12.6); NEUTROPHILS PERCENT AUTO 63.3 % (40.0-78.1); PLATELET COUNT,PLT 280 K/uL (130-375)
[2024-07-31 01:36] LABS: A/G RATIO 1.2 (1.2-2.2); ALANINE AMINOTRANSFERASE,ALT 72 U/L (12-78); ALBUMIN 4.1 g/dL (3.4-5.0); ALKALINE PHOSPHATASE 75 U/L (46-116); ANION GAP 8.1 mmol/L (5.0-14.0); ASPARTATE AMNIOTRANSFERASE,AST 96 U/L (15-37); BILIRUBIN TOTAL 0.2 mg/dL (0.2-1.0); BLOOD UREA NITROGEN,BUN 5 mg/dL (7-18); CALCIUM 9.1 mg/dL (8.5-10.1); CARBON DIOXIDE,CO2 27 mmol/L (21-32); CHLORIDE,CL 107 mmol/L (100-108); CREATININE 0.6 mg/dL (0.6-1.0); ESTIMATED GFR 124 mL/min (>60); GLUCOSE RANDOM 99 mg/dL (74-106); POTASSIUM,K 3.7 mmol/L (3.6-5.2); PROTEIN TOTAL,TP 7.6 g/dL (6.4-8.2); SODIUM,NA 142 mmol/L (140-148)
[2024-07-31] MEDS: droPERidol 5 MG/2 ML SDV IVPUSH ONE (01:56)
[2024-07-31 02:00] LABS: APPEARANCE,URINE CLEAR (CLEAR); BILIRUBIN,URINE NEGATIVE (NEGATIVE); COLOR,URINE YELLOW (YELLOW); GLUCOSE,URINE NEGATIVE (NEGATIVE); KETONES,URINE NEGATIVE (NEGATIVE); LEUKOCYTE ESTERASE,URINE NEGATIVE (NEGATIVE); NITRITE,URINE NEGATIVE (NEGATIVE); OCCULT BLOOD,URINE TRACE-INTACT (NEGATIVE); PROTEIN,URINE NEGATIVE (NEGATIVE); UROBILINOGEN,URINE 0.2 EU/dL (0.2-1.0)
[2024-07-31 02:06] LABS: AMORPHOUS SEDIMENT,URINE NOT SEEN; BACTERIA,URINE FEW; EPITHELIAL CELLS,URINE NOT SEEN; MUCUS,URINE NOT SEEN; RBC,URINE 0-5 (0-5); WBC,URINE 0-5 (0-5)
[2024-07-31] MEDS: Sodium Chloride 0.9% 80 ML IV SCH (02:30)
[2024-07-31] MEDS: Sodium Chloride 0.9% 10 ML Syringe FLUSH PRN (02:30)
[2024-07-31] MEDS: Iopamidol 612 MG/ML 100 ML Bottle IV PRN (02:31)
[2024-07-31 03:08] VITALS: BP 140/92; PULSE 103
== END 2024-07-31 03:18 | disposition home or self-care (01) ==
LOC: JP.ED 00:49
DX: R10.11 Right upper quadrant pain (principal); F17.200 Nicotine dependence, unspecified, uncomplicated; Z79.899 Other long term (current) drug therapy; Z88.2 Allergy status to sulfonamides; Z88.8 Allergy status to other drugs, medicaments and biological substances; Z86.16 Personal history of COVID-19; Z90.49 Acquired absence of other specified parts of digestive tract
CPT/HCPCS: 36415; 74177; 80053; 80307; 81001; 81025; 83690; 84702; 85025; 96374; 99284; J1790; Q9967; 99283